=== PATIENT | female | born 1945 | race Caucasian/White ===

== ENCOUNTER 2018-01-20 11:02 | Inpatient (IN) | payer MEDICARE, MEDICAID ==
[~2018-01-20] VITALS: Ht 160 cm; Wt 50.8 kg
[~2018-01-20 11:02] MED LIST: ASPIRIN81 MG ORAL; BACLOFEN10 MG ORAL; BACTRIM-DS1 EA ORAL; BISACODYL5 MG ORAL; CHLORHEXIDINE473 ML MM; DELSYM30 MG/5 M1 PO; DOCUSATE SODIU250 MG ORAL; DUONEB 0.5-3(2.53 ML HHN; FLEET ENEMA133 ML RECTAL; GERI-TUSSI100 MG/5 M PO; HEPARIN SO5000 UNIT2 SUBQ; HIBICLENS118 ML TP; LEVOTHYROXINE50 MCG ORAL; LISINOPRIL10 MG ORAL; LISINOPRIL20 MG ORAL; LISINOPRIL5 MG ORAL; MAGNESIUM CITR296 M1 PO; MILK OF MA400 MG/51 ORAL; MOTRIN IB200 MG ORAL; MULTI VITAMIN1 EACH ORAL; NORCO 5-325 TA1 EACH ORAL; OMEPRAZOLE MAGN20 MG PO; RESTORIL15 MG ORAL; TRAVATAN Z5 ML OP
[2018-01-20] MEDS ORDERED: DIOVAN HCT 1601 EAC1 ORAL (11:15)
[2018-01-20] MEDS ORDERED: TEMAZEPAM22.5 MG PO (11:15)
[2018-01-20] MEDS ORDERED: CLONIDINE HCL0.1 MG PO (11:15)
[2018-01-20] MEDS ORDERED: IBUPROFEN100 M1 PO (11:15)
[2018-01-20] MEDS ORDERED: ATORVASTATIN CA10 MG ORAL (11:15)
[2018-01-20] MEDS ORDERED: BENGAY113 GM TP (11:15)
[2018-01-20] MEDS ORDERED: ALPHAGAN P5 M2 OP (11:15)
[2018-01-20] MEDS ORDERED: LEVOTHYROXINE175 MCG ORAL (11:15)
[2018-01-20] MEDS ORDERED: VITAMIN C250 MG ORAL (11:15)
[2018-01-20] MEDS ORDERED: CALCIUM CARBON650 M3 GT (11:15)
[2018-01-20] MEDS ORDERED: NORCO 5-325 TA1 EACH ORAL (11:15)
[2018-01-20] MEDS ORDERED: Sodium Chloride 500ML 500 ML IV ONE (11:33)
[2018-01-20] MEDS ORDERED: Isovue-300 100ml vial INJ PRN (11:45)
[2018-01-20] MEDS ORDERED: Morphine Sulfate 4mg/ml Inj (IV USE ONLY) IVP ONE (11:45)
[2018-01-20 12:02] LABS: BILIRUBIN, URINE NEGATIVE (NEGATIVE); COLOR,URINE PALE YELLOW; GLUCOSE, URINE (UA) NEGATIVE (NEGATIVE); KETONES,URINE NEGATIVE (NEGATIVE); LEUKOCYTE ESTERASE ,URINE 1+ (NEGATIVE); NITRITE,URINE NEGATIVE (NEGATIVE); PH,URINE 7 (4.5-8.0); PROTEIN,URINE NEGATIVE (NEGATIVE); UROBILINOGEN,URINE NORMAL MG/DL (0.0-1.0)
[2018-01-20 12:03] LABS: ANION GAP 11 mmol/L (5-15); BLOOD UREA NITROGEN 25 mg/dL (7-18); CALCIUM 9.9 MG/DL (8.5-10.1); CARBON DIOXIDE 25 MMOL/L (21-32); CHLORIDE 103 MMOL/L (98-107); CREATININE 1.3 MG/DL (0.55-1.30); POTASSIUM 4.7 MMOL/L (3.5-5.1); SODIUM 139 MMOL/L (136-145)
[2018-01-20 12:05] LABS: APPEARANCE,URINE CLEAR
[2018-01-20 12:06] LABS: EOSINOPHILS % (AUTO) 1.2 % (0.0-3.0); HEMATOCRIT 36.2 % (37.0-47.0); HEMOGLOBIN 11.2 G/DL (12.0-16.0); LYMPHOCYTES % (AUTO) 35.7 % (20.0-45.0); MEAN CORPUSCULAR VOLUME 88 FL (80-99); MONOCYTES % (AUTO) 6.8 % (1.0-10.0); NEUTROPHILS % (AUTO) 55.3 % (45.0-75.0); PLATELET COUNT 314 K/UL (150-450); RED CELL DISTRIBUTION WIDTH 12.7 % (11.6-14.8); WHITE BLOOD COUNT 6.7 K/UL (4.8-10.8)
[2018-01-20 12:08] LABS: ALANINE AMINOTRANSFERASE 22 U/L (12-78); ALBUMIN 3.7 G/DL (3.4-5.0); ALBUMIN/GLOBULIN RATIO 0.9 (1.0-2.7); ALKALINE PHOSPHATASE 88 U/L (46-116); ASPARTATE AMINO TRANSFERASE 20 U/L (15-37); BILIRUBIN,TOTAL 0.5 MG/DL (0.2-1.0)
[2018-01-20 12:39] VITALS: BP 115/60
[2018-01-20] MEDS ORDERED: LORazepam Inj 2mg/ml 1ml IV PRN (13:15)
[2018-01-20] MEDS ORDERED: Mylanta II UD 30ml ORAL PRN (13:15)
[2018-01-20] MEDS ORDERED: Miralax 17gm pkt ORAL PRN (13:15)
--- NOTE | 2018-01-20 13:33 | Emergency Room Report ---
History of Present Illness General Chief Complaint: Abdominal Pain Source: Patient, EMS (Raji Strickland MD) Present Illness HPI 72-year-old female presents ED complaining of abdominal pain 5 days. Coming from senior living facility. Patient states she was given medication to " help her go". States she did have bowel movements but is been having persistent pain since. Sharp, 9 out of 10, nonradiating. Notes nausea and vomiting. Denies fevers or chills. Denies chest pain. No other aggravating relieving factors. Denies any other associated symptoms (Raji Strickland MD) Allergies: Coded Allergies: NO KNOWN ALLERGIES (Unverified Allergy, Unknown, 04/30/15) Patient History Past Medical History: HTN, GERD, CVA/TIA Past Surgical History: none Pertinent Family History: none Social History: Denies: smoking, alcohol use, drug use Now: No Immunizations: UTD Reviewed Nursing Documentation: PMH: Agreed; PSxH: Agreed (Raji Strickland MD) Nursing Documentation-PMH Hx Cardiac Problems: Yes - high cholesterol Hx Hypertension: Yes Hx Diabetes: No Hx Cancer: No Hx Gastrointestinal Problems: Yes - gerd Hx Cerebrovascular Accident: Yes - 2002 L-sided Hx Paralysis: Yes - Left Side Hx Headaches: Yes (Raji Strickland MD) Review of Systems All Other Systems: negative except mentioned in HPI (Raji Strickland MD) Physical Exam Vital Signs Date Time Temp Pulse Resp B/P (MAP) Pulse Ox O2 Delivery O2 Flow Rate FiO2 01/20/18 11:02 98.5 84 18 118/70 97 Room Air 98.4 Sp02 EP Interpretation: reviewed, normal General Appearance: no apparent distress, alert, GCS 15, non-toxic Head: normocephalic, atraumatic Eyes: bilateral eye normal inspection, bilateral eye PERRL ENT: hearing grossly normal, normal pharynx, no angioedema, normal voice Neck: full range of motion, supple/symm/no masses Respiratory: chest non-tender, lungs clear, normal breath sounds, speaking full sentences Cardiovascular #1: regular rate, rhythm, no edema Cardiovascular #2: 2+ carotid (R), 2+ carotid (L), 2+ radial (R), 2+ radial (L) , 2+ dorsalis pedis (R), 2+ dorsalis pedis (L) Gastrointestinal: normal bowel sounds, no guarding, no rebound, tenderness Rectal: deferred Genitourinary: normal inspection, no CVA tenderness Musculoskeletal: back normal, gait/station normal, normal range of motion, non- tender Neurologic: alert, oriented x3, responsive, motor strength/tone normal, sensory intact, speech normal Psychiatric: judgement/insight normal, memory normal, mood/affect normal, no suicidal/homicidal ideation Reflexes: 3+ bicep (R), 3+ bicep (L), 3+ tricep (R), 3+ tricep (L), 3+ knee (R) , 3+ knee (L) Skin: normal color, no rash, warm/dry, well hydrated Lymphatic: no adenopathy (Raji Strickland MD) Medical Decision Making Diagnostic Impression: Primary Impression: Abdominal pain Additional Impression: Constipation Labs Test 01/20/18 11:20 White Blood Count 6.7 K/UL (4.8-10.8) Red Blood Count 4.10 M/UL (4.20-5.40) Hemoglobin 11.2 G/DL (12.0-16.0) Hematocrit 36.2 % (37.0-47.0) Mean Corpuscular Volume 88 FL (80-99) Mean Corpuscular Hemoglobin 27.4 PG (27.0-31.0) Mean Corpuscular Hemoglobin Concent 31.0 G/DL (32.0-36.0) Red Cell Distribution Width 12.7 % (11.6-14.8) Platelet Count 314 K/UL (150-450) Mean Platelet Volume 6.3 FL (6.5-10.1) Neutrophils (%) (Auto) 55.3 % (45.0-75.0) Lymphocytes (%) (Auto) 35.7 % (20.0-45.0) Monocytes (%) (Auto) 6.8 % (1.0-10.0) Eosinophils (%) (Auto) 1.2 % (0.0-3.0) Basophils (%) (Auto) 1.0 % (0.0-2.0) Urine Color Pale yellow Urine Appearance Clear Urine pH 7 (4.5-8.0) Urine Specific [place] 1.005 (1.005-1.035) Urine Protein Negative (NEGATIVE) Urine Glucose (UA) Negative (NEGATIVE) Urine Ketones Negative (NEGATIVE) Urine Blood Negative (NEGATIVE) Urine Nitrite Negative (NEGATIVE) Urine Bilirubin Negative (NEGATIVE) Urine Urobilinogen Normal MG/DL (0.0-1.0) Urine Leukocyte Esterase 1+ (NEGATIVE) Urine RBC 0 /HPF (0 - 2) Urine WBC 0-2 /HPF (0 - 2) Urine Squamous Epithelial Cells Occasional /LPF Urine Bacteria None /HPF (NONE) Sodium Level 139 MMOL/L (136-145) Potassium Level 4.7 MMOL/L (3.5-5.1) Chloride Level 103 MMOL/L (98-107) Carbon Dioxide Level 25 MMOL/L (21-32) Anion Gap 11 mmol/L (5-15) Blood Urea Nitrogen 25 mg/dL (7-18) Creatinine 1.3 MG/DL (0.55-1.30) Estimat Glomerular Filtration Rate mL/min (>60) Glucose Level 102 MG/DL (74-106) Calcium Level 9.9 MG/DL (8.5-10.1) Total Bilirubin 0.5 MG/DL (0.2-1.0) Aspartate Amino Transf (AST/SGOT) 20 U/L (15-37) Alanine Aminotransferase (ALT/SGPT) 22 U/L (12-78) Alkaline Phosphatase 88 U/L (46-116) Total Protein 8.0 G/DL (6.4-8.2) Albumin 3.7 G/DL (3.4-5.0) Globulin 4.3 g/dL Albumin/Globulin Ratio 0.9 (1.0-2.7) Lipase 258 U/L (73-393) (Raji Strickland MD) ER Course CT of abdomen and pelvis read by radiology showed No definite acute process. There is mild nonspecific fluid in the ascending colon and slight distention of the rectum by gas and stool. Surgically absent gallbladder. Dilated extra hepatic and central intrahepatic bile ducts, could be related to age and postcholecystectomy state but are rather striking. No definite downstream obstructive lesion demonstrated, but correlation with liver function tests is recommended with consideration for MRCP if clinically indicated Nonspecific mildly ectatic pancreatic duct Mildly thickened endometrium, may raise concern in a postmenopausal female. Consider further assessment with ultrasound. Nonobstructive left lower pole calyceal calculus. Bilateral multiple bladder calculi Gas bubbles within the bladder. Suspect on the basis of prior instrumentation, but if no history of such could indicate infection with gas-forming organism. Correlate with clinical history and findings Borderline cardiomegaly T12 and L5 vertebral body compression fracture deformities, age indeterminate. If clinically relevant, consider MRI for better characterization Incidental findings as noted, including bilateral basilar pulmonary dependent parenchymal atelectatic changes, fat-containing right inguinal hernia, splenic granulomatous calcifications Bilateral renal cysts. Bilateral subcentimeter low-attenuation renal lesions which are too small to characterize, most likely benign simple cysts (Caio Florez MD) Last Vital Signs Date Time Temp Pulse Resp B/P (MAP) Pulse Ox O2 Delivery O2 Flow Rate FiO2 01/20/18 12:39 98.5 77 18 115/60 97 Room Air 98.5 Status: improved (Raji Strickland MD) Status: unchanged (Caio Florez MD) Disposition: ADMITTED INPATIENT Condition: Serious Referrals: Olegario Dunaway DO (PCP) Raji Strickland MD Jan 20, 2018 13:33 Caio Florez MD Jan 20, 2018 14:50
--- NOTE | 2018-01-20 13:58 | GI Initial Consult Note ---
History of Present Illness General Date patient seen: Jan 20, 2018 Time patient seen: 13:47 Reason for Hospitalization: Abdominal Pain Referring physician: MAX YOUNG Reason for Consultation: ABDOMINAL PAIN Present Illness HPI 72-year-old female presents ED complaining of abdominal pain 5 days. [facility]. Patient states she was given medication to " help her go". States she did have bowel movements but is been having persistent pain since. Sharp, 9 out of 10, nonradiating. Notes nausea and vomiting. Denies fevers or chills. Denies chest pain. No other aggravating relieving factors. Denies any other associated symptoms GI consulted for abdominal pain. Per report possible severe constipation/fecal impaction. Patient was seen in ED, awake A&Ox4 NAD with no active s/sx of N/V. Hx of CVA with left side hemiparesis. Pt has c/o of severe abdominal pain, tender to palpation on all quadrants, soft, non distended. Per patient, last BM has been a few days. Is aware that narcotics causes constipation and states she avoids it for that reason. The patient currently noted to be on a bowel regime consisting of Miralax, senna, and colace. CTAP pending read, preliminary read from ED show colonic distention. Pt states she's had both endoscopy/colonoscopy performed this year with unremarkable results. Home Meds Active Scripts Lisinopril (LISINOPRIL*) 20 Mg Tablet, 20 MG ORAL DAILY, #1 TAB Prov:Thelma Hernandez [employer] 05/07/15 Trimethoprim/Sulfamethoxazole (Bactrim Ds Tablet) 1 Ea Tab, 1 EA ORAL TWICE A DAY, #2 TAB Prov:Thelma Hernandez [employer] 05/06/15 Reported Medications Ascorbic Acid* (VITAMIN C*) 250 Mg Tablet, 250 MG ORAL DAILY, #30 TAB 0 Refills 01/20/18 Valsartan/Hydrochlorothiazide 160-25MG (DIOVAN HCT 160-25 MG TABLET) 1 Each Tablet, 1 TAB ORAL DAILY, TAB 01/20/18 Temazepam (TEMAZEPAM) 22.5 Mg Capsule, 15 MG PO QHS, CAP 01/20/18 Hydrocodone Bit/Acetaminophen 5-325* (NORCO 5-325*) 1 Each Tablet, 1 TAB ORAL Q6H PRN for For Pain, #10 TAB 0 Refills 9/28/18 Levothyroxine Sodium (LEVOTHYROXINE SODIUM) 175 Mcg Tablet, 50 MCG ORAL DAILY, TAB Take in the morning on an empty stomach, at least 30 minutes before food. 01/20/18 Ibuprofen (IBUPROFEN) 100 Mg Tab.chew, 600 MG PO, TAB 01/20/18 Clonidine Hcl (CLONIDINE HCL) 0.1 Mg Tablet, 0.1 MG PO Q6HR, TAB 01/20/18 Calcium Carbonate (Calcium Carbonate) 260 Mg Tablet, 650 MG GT, TAB 01/20/18 Menthol (BENGAY) 113 Gm Gel..gram., 113 GM TP, GM 01/20/18 Brimonidine Tartrate (ALPHAGAN P) 5 Ml Drops, 5 ML OP, ML 01/20/18 Atorvastatin Calcium* (LIPITOR*) 10 Mg Tablet, 10 MG ORAL BEDTIME, TAB 01/20/18 Aspirin* (ASPIRIN*) 81 Mg Tab.chew, 81 MG ORAL DAILY, TAB 04/30/15 Discontinued Reported Medications Travoprost (TRAVATAN Z) 5 Ml Drops, 5 ML OP, ML 04/30/15 Temazepam* (RESTORIL*) 15 Mg Capsule, 15 MG ORAL BEDTIME PRN for Insomnia, CAP 04/30/15 Omeprazole Magnesium (OMEPRAZOLE MAGNESIUM) 20 Mg Capsule.dr, 20 MG PO DAILY, CAP 04/30/15 Hydrocodone Bit/Acetaminophen 5-325* (NORCO 5-325*) 1 Each Tablet, 1 TAB ORAL Q6H PRN for For Pain, #10 TAB 0 Refills 04/30/15 Multivitamin (MULTI VITAMIN DAILY) 1 Each Tablet, 1 TAB ORAL DAILY, #30 TAB 0 Refills 04/30/15 Ibuprofen* (MOTRIN IB*) 200 Mg Tablet, 600 MG ORAL Q8HR PRN for Pain Scale (3-5) , #30 TAB 0 Refills 04/30/15 Magnesium Hydroxide* (MILK OF MAGNESIA*) 400 Mg/5 Ml Oral.susp, 30 ML ORAL DAILY , ML 04/30/15 Magnesium Citrate (MAGNESIUM CITRATE) 296 Ml Solution, 296 ML PO DAILY PRN for Constipation 04/30/15 Levothyroxine Sodium* (LEVOTHYROXINE SODIUM*) 50 Mcg Tablet, 50 MCG ORAL DAILY, TAB Take in the morning on an empty stomach, at least 30 minutes before food. 04/30/15 Heparin Sod (Porcine) (HEPARIN SODIUM*) 5 000/1 Ml Vial, 5000 UNITS SUBQ DAILY, VIAL 04/30/15 Guaifenesin (WON-TUSSIN) 100 Mg/5 Ml Liquid, 100 MG PO Q6HR, ML 04/30/15 Na Phos,M-B/Na Phos,Di-Ba* (FLEET ENEMA*) 133 Ml Enema, 118 ML RECTAL DAILY, ML 0 Refills 04/30/15 Bisacodyl* (DULCOLAX*) 5 Mg Tablet.dr, 10 MG ORAL DAILY, #10 TAB 0 Refills 04/30/15 Ipratropium/Albuterol Sulfate (DuoNeb 0.5-3(2.5)mg/3ml) 3 Ml Ampul.neb, 3 ML HHN Q4HR, EA 04/30/15 Docusate Sodium* (DOCUSATE SODIUM*) 250 Mg Capsule, 250 MG ORAL TWICE A DAY, CAP 04/30/15 Dextromethorphan Polistirex (DELSYM) 30 Mg/5 Ml Shruti.er.12h, 30 MG PO Q6HR 04/30/15 Chlorhexidine Gluconate (CHLORHEXIDINE GLUCONATE) 473 Ml Mouthwash, 15 ML MM, ML 04/30/15 Chlorhexidine Gluconate* (HIBICLENS*) 118 Ml Liquid, 118 ML TP, ML 04/30/15 Baclofen* (BACLOFEN*) 10 Mg Tablet, 10 MG ORAL THREE TIMES A DAY, TAB 04/30/15 Med list reviewed/reconciled: Yes Allergies: Coded Allergies: NO KNOWN ALLERGIES (Unverified Allergy, Unknown, 04/30/15) Patient History PMH Narrative Past Medical History: HTN, GERD, CVA/TIA Past Surgical History: none Pertinent Family History: none Social History: Denies: smoking, alcohol use, drug use Now: No Immunizations: UTD Reviewed Nursing Documentation: PMH: Agreed; PSxH: Agreed Nursing Documentation-PMH Hx Cardiac Problems: Yes - high cholesterol Hx Hypertension: Yes Hx Diabetes: No Hx Cancer: No Hx Gastrointestinal Problems: Yes - gerd Hx Cerebrovascular Accident: Yes - 2002 L-sided Hx Paralysis: Yes - Left Side Hx Headaches: Yes Pertinent Family History: none Social History: Denies: smoking, alcohol use, drug use, other Review of Systems All Other Systems: negative except mentioned in HPI Physical Exam Vital Signs Date Time Temp Pulse Resp B/P (MAP) Pulse Ox O2 Delivery O2 Flow Rate FiO2 01/20/18 11:02 98.5 84 18 118/70 97 Room Air 98.4 Sp02 EP Interpretation: reviewed, normal Labs Laboratory Tests Test 01/20/18 11:20 White Blood Count 6.7 K/UL (4.8-10.8) Red Blood Count 4.10 M/UL (4.20-5.40) L Hemoglobin 11.2 G/DL (12.0-16.0) L Hematocrit 36.2 % (37.0-47.0) L Mean Corpuscular Volume 88 FL (80-99) Mean Corpuscular Hemoglobin 27.4 PG (27.0-31.0) Mean Corpuscular Hemoglobin Concent 31.0 G/DL (32.0-36.0) L Red Cell Distribution Width 12.7 % (11.6-14.8) Platelet Count 314 K/UL (150-450) Mean Platelet Volume 6.3 FL (6.5-10.1) L Neutrophils (%) (Auto) 55.3 % (45.0-75.0) Lymphocytes (%) (Auto) 35.7 % (20.0-45.0) Monocytes (%) (Auto) 6.8 % (1.0-10.0) Eosinophils (%) (Auto) 1.2 % (0.0-3.0) Basophils (%) (Auto) 1.0 % (0.0-2.0) Urine Color Pale yellow Urine Appearance Clear Urine pH 7 (4.5-8.0) Urine Specific [place] 1.005 (1.005-1.035) Urine Protein Negative (NEGATIVE) Urine Glucose (UA) Negative (NEGATIVE) Urine Ketones Negative (NEGATIVE) Urine Blood Negative (NEGATIVE) Urine Nitrite Negative (NEGATIVE) Urine Bilirubin Negative (NEGATIVE) Urine Urobilinogen Normal MG/DL (0.0-1.0) Urine Leukocyte Esterase 1+ (NEGATIVE) H Urine RBC 0 /HPF (0 - 2) Urine WBC 0-2 /HPF (0 - 2) Urine Squamous Epithelial Cells Occasional /LPF Urine Bacteria None /HPF (NONE) Sodium Level 139 MMOL/L (136-145) Potassium Level 4.7 MMOL/L (3.5-5.1) Chloride Level 103 MMOL/L (98-107) Carbon Dioxide Level 25 MMOL/L (21-32) Anion Gap 11 mmol/L (5-15) Blood Urea Nitrogen 25 mg/dL (7-18) H Creatinine 1.3 MG/DL (0.55-1.30) Estimat Glomerular Filtration Rate mL/min (>60) Glucose Level 102 MG/DL (74-106) Calcium Level 9.9 MG/DL (8.5-10.1) Total Bilirubin 0.5 MG/DL (0.2-1.0) Aspartate Amino Transf (AST/SGOT) 20 U/L (15-37) Alanine Aminotransferase (ALT/SGPT) 22 U/L (12-78) Alkaline Phosphatase 88 U/L (46-116) Total Protein 8.0 G/DL (6.4-8.2) Albumin 3.7 G/DL (3.4-5.0) Globulin 4.3 g/dL Albumin/Globulin Ratio 0.9 (1.0-2.7) L Lipase 258 U/L (73-393) General Appearance: well appearing, no apparent distress, alert, thin Head: normocephalic EENT: PERRL/EOMI, normal ENT inspection Neck: supple Respiratory: normal breath sounds, no respiratory distress Cardiovascular: normal rate Gastrointestinal: soft, non-distended, guarding, tenderness Rectal: deferred Genitourinary: no CVA tenderness Musculoskeletal: normal inspection, other - left sided weakness s/p CVA Neurologic: normal inspection, alert, oriented x3, responsive Psychiatric: normal inspection, judgement/insight normal, memory normal Skin: normal inspection, normal color, no rash, warm/dry, palpation normal, well hydrated Lymphatic: normal inspection, no adenopathy Current Medications Current Medications Medications (Trade) Dose Ordered Sig/Marilu Route PRN Reason Start Time Stop Time Status Last Admin Dose Admin Acetaminophen (Tylenol) 650 mg Q4H PRN ORAL fever 01/20/18 13:15 02/19/18 13:14 Al Hydroxide/Mg Hydroxide (Mylanta II) 30 ml Q6H PRN ORAL dyspepsia 01/20/18 13:15 02/19/18 13:14 Aspirin (ASA) 81 mg DAILY ORAL 01/21/18 09:00 02/20/18 08:59 Clonidine HCl (Catapres Tab) 0.1 mg Q6H PRN ORAL sbp more than 160 01/20/18 13:15 02/19/18 13:14 Dextrose (Dextrose 50%) 25 ml Q30M PRN IV Hypoglycemia 01/20/18 13:30 02/19/18 13:18 Dextrose (Dextrose 50%) 50 ml Q30M PRN IV hypoglycemia 01/20/18 13:30 02/19/18 13:29 Docusate Sodium (Colace) 100 mg THREE TIMES A DAY ORAL 01/20/18 18:00 02/19/18 17:59 Iopamidol (Isovue-300 100ml) 100 ml NOW PRN INJ Radiology Procedure 01/20/18 11:45 Lactulose (Cephulac) 30 gm THREE TIMES A DAY ORAL 01/20/18 18:00 02/19/18 17:59 Levothyroxine Sodium (Synthroid) 50 mcg DAILY@0630 ORAL 01/21/18 06:30 02/20/18 06:29 UNV Lisinopril (Prinivil) 20 mg DAILY ORAL 01/21/18 09:00 02/20/18 08:59 Lorazepam (Ativan 2mg/ml 1ml) 0.5 mg Q4H PRN IV For Anxiety 01/20/18 13:15 01/27/18 13:14 Morphine Sulfate (Morphine Sulfate) 1 mg Q4H PRN IVP For Pain 01/20/18 13:15 01/27/18 13:14 Ondansetron HCl (Zofran) 4 mg Q6H PRN IVP Nausea & Vomiting 01/20/18 13:15 02/19/18 13:14 Polyethylene Glycol (Miralax) 17 gm BEDTIME ORAL 01/20/18 21:00 02/19/18 20:59 Polyethylene Glycol (Miralax) 17 gm HSPRN PRN ORAL Constipation 01/20/18 13:15 02/19/18 13:14 Sennosides (Senokot) 8.6 tab DAILY ORAL 01/21/18 09:00 02/20/18 08:59 Zolpidem Tartrate (Ambien) 5 mg HSPRN PRN ORAL Insomnia 01/20/18 13:15 01/27/18 13:14 GI: Plan Problems: (1) Fecal impaction (2) Constipation (3) Anemia (4) Family history of CVA (5) Diabetes Plan CTAP taken, results pending maintain NPO + IVFs at this time will order fleets enema prn, digital disimpaction if medical mgmt fails cont bowel regime anemia work up OB stool r/o GI bleed monitor H&H, prn transfusions ppi fu labs Discussed with Dr. Albert. Thank you for this patient referral, we will follow. The patient was seen and examined at bedside and all new and available data was reviewed in the patients chart. I agree with the above findings, impression and plan. (Patient seen earlier today. Signature stamp does not reflect patient encounter time.). - MD Pamela Guerrero AnhJustus MICHAELS Jan 20, 2018 13:58
[2018-01-20] MEDS ORDERED: Fleet's Mineral Oil Enema RECTAL PRN (14:00)
[2018-01-20 14:10] VITALS: BP 107/58
--- NOTE | 2018-01-20 14:26 | Diagnostic Imaging Report ---
Clinical Indication: Abdominal pain, nausea, urinary tract infection symptoms Technique: No oral contrast utilized, per emergency room physician request IV administration nonionic contrast. Venous phase spiral acquisition obtained through the abdomen and pelvis. Multiplanar reconstructions were generated. Total dose length product 941.15 mGycm. CTDIvol(s) 19.07 mGy. Dose reduction achieved using automated exposure control Comparison: none Findings: The appendix is normal. Some fluid is seen in the ascending colon. The proximal rectum is mildly distended by gas and stool. No evidence of diverticulosis or diverticulitis. No small bowel distention. No free or loculated intraperitoneal gas or fluid is evident. The distal esophagus, stomach, duodenum are unremarkable. The gallbladder is surgically absent. Central intrahepatic bile ducts and the common bile duct are dilated, extra hepatic ducts measuring up to 12 cm in diameter. The downstream common bile duct is not well visualized, but no definite downstream obstructive lesion is demonstrated. The liver is unremarkable. The pancreatic duct is mildly ectatic. The pancreas is otherwise unremarkable. The spleen contains a few small calcifications. The adrenals are unremarkable. The left kidney demonstrates a nonobstructive lower pole calyceal calculus which measures 4 mm in diameter. Both kidneys demonstrate multiple cysts as well as subcentimeter low-attenuation lesions which are too small to characterize. No retroperitoneal or mesenteric mass or adenopathy. No pelvic mass or adenopathy. There is thickening of the endometrium, which is thickened to up to 8 mm. No uterine or adnexal mass demonstrated. The urinary bladder contains a few gas bubbles. There are also some calcifications dependently in the bladder bilaterally, measuring up to 3 mm in diameter. There is a small fat-containing right inguinal hernia. Dependent atelectatic changes are seen at the lung bases bilaterally. The heart is borderline enlarged. There is a wedge compression fracture deformity of the T12 vertebral body. There is is a mild vertebra plana type compression fracture deformity of the L5 vertebral body Impression: No definite acute process. There is mild nonspecific fluid in the ascending colon and slight distention of the rectum by gas and stool. Surgically absent gallbladder. Dilated extra hepatic and central intrahepatic bile ducts, could be related to age and postcholecystectomy state but are rather striking. No definite downstream obstructive lesion demonstrated, but correlation with liver function tests is recommended with consideration for MRCP if clinically indicated Nonspecific mildly ectatic pancreatic duct Mildly thickened endometrium, may raise concern in a postmenopausal female. Consider further assessment with ultrasound. Nonobstructive left lower pole calyceal calculus. Bilateral multiple bladder calculi Gas bubbles within the bladder. Suspect on the basis of prior instrumentation, but if no history of such could indicate infection with gas-forming organism. Correlate with clinical history and findings Borderline cardiomegaly T12 and L5 vertebral body compression fracture deformities, age indeterminate. If clinically relevant, consider MRI for better characterization Incidental findings as noted, including bilateral basilar pulmonary dependent parenchymal atelectatic changes, fat-containing right inguinal hernia, splenic granulomatous calcifications Bilateral renal cysts. Bilateral subcentimeter low-attenuation renal lesions which are too small to characterize, most likely benign simple cysts The CT scanner at [facility] is accredited by the [employer] and the scans are performed using protocols designed to limit radiation exposure to as low as reasonably achievable to attain images of sufficient resolution adequate for diagnostic evaluation.
--- NOTE | 2018-01-20 14:35 | Consultation ---
History of Present Illness General Chief Complaint: Abdominal Pain Referring physician: MAX YOUNG Reason for Consultation: ABDOMINAL PAIN Present Illness HPI 72-year-old female with hx of DM, CVA, decubiti ulcers, senior living resident presented to ED complaining of abdominal pain 5 days. Patient states she was given medication to "help her go". States she did have bowel movements but is been having persistent pain since. S Denies fevers or chills. Denies chest pain. No other aggravating relieving factors. Denies any other associated symptoms. she is admitted to medical floor for further work up. Allergies: Coded Allergies: NO KNOWN ALLERGIES (Unverified Allergy, Unknown, 04/30/15) Medication History Scheduled Ascorbic Acid* (Vitamin C*), 250 MG ORAL DAILY, (Reported) Aspirin* (Aspirin*), 81 MG ORAL DAILY, (Reported) Atorvastatin Calcium* (Lipitor*), 10 MG ORAL BEDTIME, (Reported) Clonidine Hcl (Clonidine Hcl), 0.1 MG PO Q6HR, (Reported) Docusate Sodium* (Docusate Sodium*), 100 MG ORAL THREE TIMES A DAY, (Reported) Lactulose (Lactulose*), 30 ML ORAL TID, (Reported) Levothyroxine Sodium (Levothyroxine Sodium), 50 MCG ORAL DAILY, (Reported) Levothyroxine Sodium* (Levothyroxine Sodium*), 50 MCG ORAL DAILY 0630, (Reported ) Lisinopril (Lisinopril*), 20 MG ORAL DAILY, (Reported) Mupirocin* (Mupirocin*), 1 APPLIC TOPIC BID, (Reported) Sennosides* (Sennosides*), 8.6 MG ORAL DAILY, (Reported) Temazepam (Temazepam), 15 MG PO QHS, (Reported) Valsartan/Hydrochlorothiazide 160-25MG (Diovan Hct 160-25 Mg Tablet), 1 TAB ORAL DAILY, (Reported) Scheduled PRN Hydrocodone Bit/Acetaminophen 5-325* ([place] 5-325*), 1 TAB ORAL Q6H PRN for For Pain, (Reported) Polyethylene Glycol 3350* (Polyethylene Glycol 3350*), 17 GM ORAL BEDTIME PRN for Constipation, (Reported) Miscellaneous Medications Brimonidine Tartrate (Alphagan P), 5 ML OP, (Reported) Calcium Carbonate (Calcium Carbonate), 650 MG GT, (Reported) Ibuprofen (Ibuprofen), 600 MG PO, (Reported) Menthol (Bengay), 113 GM TP, (Reported) Discontinued Medications Baclofen* (Baclofen*), 10 MG ORAL THREE TIMES A DAY, (Reported) Discontinued Reason: Pt stopped taking med Bisacodyl* (Dulcolax*), 10 MG ORAL DAILY, (Reported) Discontinued Reason: Pt stopped taking med Chlorhexidine Gluconate (Chlorhexidine Gluconate), 15 ML MM, (Reported) Discontinued Reason: MD discontinued med Chlorhexidine Gluconate* (Hibiclens*), 118 ML TP, (Reported) Discontinued Reason: MD discontinued med Dextromethorphan Polistirex (Delsym), 30 MG PO Q6HR, (Reported) Discontinued Reason: Pt stopped taking med Docusate Sodium* (Docusate Sodium*), 250 MG ORAL TWICE A DAY, (Reported) Discontinued Reason: Pt stopped taking med Guaifenesin (Bela-Tussin), 100 MG PO Q6HR, (Reported) Discontinued Reason: Pt stopped taking med Heparin Sod (Porcine) (Heparin Sodium*), 5,000 UNITS SUBQ DAILY, (Reported) Discontinued Reason: Pt stopped taking med Hydrocodone Bit/Acetaminophen 5-325* ([place] 5-325*), 1 TAB ORAL Q6H PRN for For Pain, (Reported) Discontinued Reason: Pt stopped taking med Ibuprofen* (Motrin Ib*), 600 MG ORAL Q8HR PRN for Pain Scale (3-5), (Reported) Discontinued Reason: Pt stopped taking med Ipratropium/Albuterol Sulfate (DuoNeb 0.5-3(2.5)mg/3ml), 3 ML HHN Q4HR, ( Reported) Discontinued Reason: Pt stopped taking med Levothyroxine Sodium* (Levothyroxine Sodium*), 50 MCG ORAL DAILY, (Reported) Discontinued Reason: Pt stopped taking med Lisinopril (Lisinopril*), 20 MG ORAL DAILY Discontinued Reason: MD discontinued med Magnesium Citrate (Magnesium Citrate), 296 ML PO DAILY PRN for Constipation, ( Reported) Discontinued Reason: Pt stopped taking med Magnesium Hydroxide* (Milk Of Magnesia*), 30 ML ORAL DAILY, (Reported) Discontinued Reason: Pt stopped taking med Multivitamin (Multi Vitamin Daily), 1 TAB ORAL DAILY, (Reported) Discontinued Reason: Pt stopped taking med Na Phos,M-B/Na Phos,Di-Ba* (Fleet Enema*), 118 ML RECTAL DAILY, (Reported) Discontinued Reason: Pt stopped taking med Omeprazole Magnesium (Omeprazole Magnesium), 20 MG PO DAILY, (Reported) Discontinued Reason: Pt stopped taking med Temazepam* (Restoril*), 15 MG ORAL BEDTIME PRN for Insomnia, (Reported) Discontinued Reason: Pt stopped taking med Travoprost (Travatan Z), 5 ML OP, (Reported) Discontinued Reason: Pt stopped taking med Trimethoprim/Sulfamethoxazole (Bactrim Ds Tablet), 1 EA ORAL TWICE A DAY Discontinued Reason: MD discontinued med Patient History Healthcare decision maker Resuscitation status Advanced Directive on File Past Medical/Surgical History Past Medical/Surgical History: (1) Sacral decubitus ulcer, stage III (2) Osteoarthritis of left knee (3) Cerebrovascular accident with involvement of left side of body (4) Vomiting (5) Diabetes Review of Systems All Other Systems: negative except mentioned in HPI Physical Exam General Appearance: WD/WN Lines, tubes and drains: peripheral HEENT: normocephalic, anicteric Neck: non-tender, normal alignment Respiratory/Chest: chest wall non-tender, lungs clear, normal breath sounds Breasts: no masses Cardiovascular/Chest: normal rate Abdomen: normal bowel sounds, soft Genitourinary/Rectal: normal genital exam Last 24 Hour Vital Signs Date Time Temp Pulse Resp B/P (MAP) Pulse Ox O2 Delivery O2 Flow Rate FiO2 01/20/18 14:10 98.5 70 16 107/58 97 Room Air 98.5 01/20/18 12:39 98.5 77 18 115/60 97 Room Air 98.5 01/20/18 12:38 98.5 01/20/18 11:39 98.5 01/20/18 11:02 98.5 84 18 118/70 97 Room Air 98.4 Laboratory Tests Test 01/20/18 11:20 White Blood Count 6.7 K/UL (4.8-10.8) Red Blood Count 4.10 M/UL (4.20-5.40) L Hemoglobin 11.2 G/DL (12.0-16.0) L Hematocrit 36.2 % (37.0-47.0) L Mean Corpuscular Volume 88 FL (80-99) Mean Corpuscular Hemoglobin 27.4 PG (27.0-31.0) Mean Corpuscular Hemoglobin Concent 31.0 G/DL (32.0-36.0) L Red Cell Distribution Width 12.7 % (11.6-14.8) Platelet Count 314 K/UL (150-450) Mean Platelet Volume 6.3 FL (6.5-10.1) L Neutrophils (%) (Auto) 55.3 % (45.0-75.0) Lymphocytes (%) (Auto) 35.7 % (20.0-45.0) Monocytes (%) (Auto) 6.8 % (1.0-10.0) Eosinophils (%) (Auto) 1.2 % (0.0-3.0) Basophils (%) (Auto) 1.0 % (0.0-2.0) Urine Color Pale yellow Urine Appearance Clear Urine pH 7 (4.5-8.0) Urine Specific [place] 1.005 (1.005-1.035) Urine Protein Negative (NEGATIVE) Urine Glucose (UA) Negative (NEGATIVE) Urine Ketones Negative (NEGATIVE) Urine Blood Negative (NEGATIVE) Urine Nitrite Negative (NEGATIVE) Urine Bilirubin Negative (NEGATIVE) Urine Urobilinogen Normal MG/DL (0.0-1.0) Urine Leukocyte Esterase 1+ (NEGATIVE) H Urine RBC 0 /HPF (0 - 2) Urine WBC 0-2 /HPF (0 - 2) Urine Squamous Epithelial Cells Occasional /LPF Urine Bacteria None /HPF (NONE) Sodium Level 139 MMOL/L (136-145) Potassium Level 4.7 MMOL/L (3.5-5.1) Chloride Level 103 MMOL/L (98-107) Carbon Dioxide Level 25 MMOL/L (21-32) Anion Gap 11 mmol/L (5-15) Blood Urea Nitrogen 25 mg/dL (7-18) H Creatinine 1.3 MG/DL (0.55-1.30) Estimat Glomerular Filtration Rate mL/min (>60) Glucose Level 102 MG/DL (74-106) Calcium Level 9.9 MG/DL (8.5-10.1) Total Bilirubin 0.5 MG/DL (0.2-1.0) Aspartate Amino Transf (AST/SGOT) 20 U/L (15-37) Alanine Aminotransferase (ALT/SGPT) 22 U/L (12-78) Alkaline Phosphatase 88 U/L (46-116) Total Protein 8.0 G/DL (6.4-8.2) Albumin 3.7 G/DL (3.4-5.0) Globulin 4.3 g/dL Albumin/Globulin Ratio 0.9 (1.0-2.7) L Lipase 258 U/L (73-393) Height (Feet): 5 Height (Inches): 3.00 Weight (Pounds): 112 Medications Current Medications Medications (Trade) Dose Ordered Sig/Marilu Route PRN Reason Start Time Stop Time Status Last Admin Dose Admin Acetaminophen (Tylenol) 650 mg Q4H PRN ORAL fever 01/20/18 13:15 02/19/18 13:14 Al Hydroxide/Mg Hydroxide (Mylanta II) 30 ml Q6H PRN ORAL dyspepsia 01/20/18 13:15 02/19/18 13:14 Aspirin (ASA) 81 mg DAILY ORAL 01/21/18 09:00 02/20/18 08:59 Clonidine HCl (Catapres Tab) 0.1 mg Q6H PRN ORAL sbp more than 160 01/20/18 13:15 02/19/18 13:14 Dextrose (Dextrose 50%) 25 ml Q30M PRN IV Hypoglycemia 01/20/18 13:30 02/19/18 13:18 Dextrose (Dextrose 50%) 50 ml Q30M PRN IV hypoglycemia 01/20/18 13:30 02/19/18 13:29 Docusate Sodium (Colace) 100 mg TID ORAL 01/20/18 18:00 02/19/18 17:59 Iopamidol (Isovue-300 100ml) 100 ml NOW PRN INJ Radiology Procedure 01/20/18 11:45 Lactulose (Cephulac) 30 gm THREE TIMES A DAY ORAL 01/20/18 18:00 02/19/18 17:59 Levothyroxine Sodium (Synthroid) 50 mcg DAILY@0630 ORAL 01/21/18 06:30 02/20/18 06:29 UNV Lisinopril (Prinivil) 20 mg DAILY ORAL 01/21/18 09:00 02/20/18 08:59 Lorazepam (Ativan 2mg/ml 1ml) 0.5 mg Q4H PRN IV For Anxiety 01/20/18 13:15 01/27/18 13:14 01/20/18 13:49 Mineral Oil (Fleet's Mineral Oil Enema) 133 ml Q4H PRN RECTAL CONSTIPATION 01/20/18 14:02 02/19/18 13:59 Morphine Sulfate (Morphine Sulfate) 1 mg Q4H PRN IVP For Pain 01/20/18 13:15 01/27/18 13:14 Ondansetron HCl (Zofran) 4 mg Q6H PRN IVP Nausea & Vomiting 01/20/18 13:15 02/19/18 13:14 Polyethylene Glycol (Miralax) 17 gm BEDTIME ORAL 01/20/18 21:00 02/19/18 20:59 Polyethylene Glycol (Miralax) 17 gm HSPRN PRN ORAL Constipation 01/20/18 13:15 02/19/18 13:14 Sennosides (Senokot) 8.6 tab DAILY ORAL 01/21/18 09:00 02/20/18 08:59 Sodium Chloride 1,000 ml @ 999 mls/hr Q1H1M ONCE IV 01/20/18 14:30 01/20/18 15:30 01/20/18 14:27 Zolpidem Tartrate (Ambien) 5 mg HSPRN PRN ORAL Insomnia 01/20/18 13:15 01/27/18 13:14 Assessment/Plan Problem List: (1) Fecal impaction ICD Codes: K56.41 - Fecal impaction SNOMED: 49311826 (2) Constipation ICD Codes: K59.00 - Constipation, unspecified SNOMED: 76551088 (3) Abdominal pain ICD Codes: R10.9 - Unspecified abdominal pain SNOMED: 36824768 (4) Cerebrovascular accident with involvement of left side of body ICD Codes: I63.9 - Cerebral infarction, unspecified SNOMED: 698725202 (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
[2018-01-20] MEDS: Fleet's Mineral Oil Enema RECTAL PRN (15:12)
[2018-01-20 15:13] VITALS: BP 108/62
--- NOTE | 2018-01-20 16:45 | History and Physical Report ---
DATE OF ADMISSION: 01/20/2018 APPROXIMATE TIME: 1 p.m. CONSULTANTS: 1. Luiz Albert M.D. 2. Amira Lawler M.D. CHIEF COMPLAINT: Abdominal pain and nausea. BRIEF HISTORY: This is a 72-year-old female from [facility] who presents to [facility] this morning with history of abdominal pain increasing for two days. The patient diagnosed with abdominal pain and stool impaction and being admitted to medical floor. Currently, slightly anxious due to general stomach pain and no complaint of vomiting or diarrhea. Last stool about two days ago. PAST MEDICAL HISTORY: CVA, left-sided weakness, diabetes, osteoarthritis. PAST SURGICAL HISTORY: None. MEDICATIONS: Include aspirin, Prinivil, Senokot, Synthroid, Cephulac, MiraLAX, Colace, Catapres, morphine, Zofran, Ambien, Ativan, and Mylanta. ALLERGIES: Denies. SOCIAL HISTORY: No smoking. No alcohol. No intravenous drug abuse. FAMILY HISTORY: Noncontributory. PHYSICAL EXAMINATION: GENERAL: Slightly anxious in bed, oriented x3, in no acute distress. VITAL SIGNS: Temperature 98 degrees, pulse 77, respiratory rate 18, and blood pressure 115/60. CARDIOVASCULAR: No murmur. LUNGS: Distant and clear. ABDOMEN: Bowel sounds positive. Distant. Soft. No guarding. No rigidity. No rebound. EXTREMITIES: No cyanosis or edema. NEUROLOGIC: The patient moves all extremities, but left-sided weakness more so than the right. LABORATORY DATA: Labs at this time show hemoglobin 11.2, otherwise CBC is normal. BMP shows BUN 25, otherwise BMP is normal. Urinalysis shows 1+ leukocyte esterase. ASSESSMENT: Stool impaction, UTI, CVA, left-sided weakness, anemia, diabetes, and osteoarthritis. PLAN: Pain control. IV fluids. Laxative as needed. Antibiotics as needed. Blood sugar and pain control. Dietary followup. OT/PT. CBC and BMP in the morning. Olegario Dunaway D.O. DR: CESAR JOB#: [id number] CC:
[2018-01-20] MEDS: Docusate 100mg cap ORAL SCH (18:00)
[2018-01-20] MEDS ORDERED: Docusate 100mg cap ORAL SCH (18:00)
[2018-01-20] MEDS: Lactulose 20gm/30ml UDC ORAL SCH (18:00)
[2018-01-20 20:00] VITALS: BP 105/60
[2018-01-20] MEDS: Zolpidem 5mg tab ORAL PRN (20:07)
[2018-01-20] MEDS: Miralax 17gm pkt ORAL SCH (20:07)
[2018-01-21] VITALS: BP 96/60
[2018-01-21 04:00] VITALS: BP 107/61
[2018-01-21 08:00] VITALS: BP 108/63
--- NOTE | 2018-01-21 08:13 | General Progress Note ---
Assessment/Plan Problem List: (1) Abdominal pain ICD Codes: R10.9 - Unspecified abdominal pain SNOMED: 08549199 (2) Constipation ICD Codes: K59.00 - Constipation, unspecified SNOMED: 14162970 (3) Vomiting ICD Codes: R11.10 - Vomiting, unspecified SNOMED: 460126238 (4) Fecal impaction ICD Codes: K56.41 - Fecal impaction SNOMED: 47403721 (5) Diabetes ICD Codes: E11.9 - Type 2 diabetes mellitus without complications SNOMED: 07287049 (6) Anemia ICD Codes: D64.9 - Anemia, unspecified SNOMED: 126329801 (7) Cerebrovascular accident with involvement of left side of body ICD Codes: I63.9 - Cerebral infarction, unspecified SNOMED: 568686750 Assessment/Plan anemia work up bowel regimen fu labs Subjective ROS Limited/Unobtainable: Yes Allergies: Coded Allergies: NO KNOWN ALLERGIES (Unverified Allergy, Unknown, 04/30/15) Subjective abd pain is better Objective Last 24 Hour Vital Signs Date Time Temp Pulse Resp B/P (MAP) Pulse Ox O2 Delivery O2 Flow Rate FiO2 01/21/18 04:00 97.2 62 20 107/61 (76) 97 97.2 01/21/18 00:00 97.1 56 19 96/60 (72) 98 97.1 01/20/18 21:00 Room Air 01/20/18 20:00 98.0 64 19 105/60 (75) 98 98.0 01/20/18 17:40 Room Air 01/20/18 16:05 98.5 80 16 108/62 98 Room Air 98.5 01/20/18 15:13 98.5 80 16 108/62 98 Room Air 98.5 01/20/18 14:10 98.5 70 16 107/58 97 Room Air 98.5 01/20/18 12:39 98.5 77 18 115/60 97 Room Air 98.5 01/20/18 12:38 98.5 01/20/18 11:39 98.5 01/20/18 11:02 98.5 84 18 118/70 97 Room Air 98.4 Intake and Output 01/20/18 01/21/18 19:00 07:00 Intake Total 120 ml 240 ml Balance 120 ml 240 ml Intake Oral 120 ml 240 ml # Voids 2 2 # Bowel Movements 2 Laboratory Tests 01/20/18 11:20: White Blood Count 6.7, Red Blood Count 4.10L, Hemoglobin 11.2L, Hematocrit 36.2L , Mean Corpuscular Volume 88, Mean Corpuscular Hemoglobin 27.4, Mean Corpuscular Hemoglobin Concent 31.0L, Red Cell Distribution Width 12.7, Platelet Count 314, Mean Platelet Volume 6.3L, Neutrophils (%) (Auto) 55.3, Lymphocytes (%) (Auto) 35.7, Monocytes (%) (Auto) 6.8, Eosinophils (%) (Auto) 1.2, Basophils (%) (Auto) 1.0, Urine Color Pale yellow, Urine Appearance Clear, Urine pH 7, Urine Specific [place] 1.005, Urine Protein Negative, Urine Glucose (UA) Negative, Urine Ketones Negative, Urine Blood Negative, Urine Nitrite Negative, Urine Bilirubin Negative, Urine Urobilinogen Normal, Urine Leukocyte Esterase 1+H, Urine RBC 0, Urine WBC 0-2, Urine Squamous Epithelial Cells Occasional, Urine Bacteria None, Sodium Level 139, Potassium Level 4.7, Chloride Level 103, Carbon Dioxide Level 25, Anion Gap 11, Blood Urea Nitrogen 25H, Creatinine 1.3, Estimat Glomerular Filtration Rate , Glucose Level 102, Calcium Level 9.9, Total Bilirubin 0.5, Aspartate Amino Transf (AST/SGOT) 20, Alanine Aminotransferase (ALT/SGPT) 22, Alkaline Phosphatase 88, Total Protein 8.0, Albumin 3.7, Globulin 4.3, Albumin/Globulin Ratio 0.9L, Lipase 258 01/21/18 06:50: White Blood Count [Pending], Red Blood Count [Pending], Hemoglobin [Pending], Hematocrit [Pending], Mean Corpuscular Volume [Pending], Mean Corpuscular Hemoglobin [Pending], Mean Corpuscular Hemoglobin Concent [Pending], Red Cell Distribution Width [Pending], Platelet Count [Pending], Mean Platelet Volume [ Pending], Neutrophils (%) (Auto) [Pending], Lymphocytes (%) (Auto) [Pending], Monocytes (%) (Auto) [Pending], Eosinophils (%) (Auto) [Pending], Basophils (%) (Auto) [Pending], Sodium Level [Pending], Potassium Level [Pending], Chloride Level [Pending], Carbon Dioxide Level [Pending], Blood Urea Nitrogen [Pending], Creatinine [Pending], Estimat Glomerular Filtration Rate [Pending], Glucose Level [Pending], Calcium Level [Pending], Total Bilirubin [Pending], Aspartate Amino Transf (AST/SGOT) [Pending], Alanine Aminotransferase (ALT/SGPT) [Pending] , Alkaline Phosphatase [Pending], Total Protein [Pending], Albumin [Pending], Globulin [Pending], Reticulocyte Count [Pending], Prothrombin Time 10.7, Prothromb Time International Ratio 1.0, Activated Partial Thromboplast Time 22L , Iron Level [Pending], Unsaturated Iron Binding [Pending], Ferritin [Pending], Triglycerides Level [Pending], Cholesterol Level [Pending], LDL Cholesterol [ Pending], HDL Cholesterol [Pending], Cholesterol/HDL Ratio [Pending], Carcinoembryonic Antigen [Pending], Vitamin B12 Level [Pending], Folate [Pending ], Thyroid Stimulating Hormone (TSH) [Pending], Free Thyroxine [Pending] Height (Feet): 5 Height (Inches): 3.00 Weight (Pounds): 112 General Appearance: alert EENT: normal ENT inspection Neck: supple Cardiovascular: normal rate Respiratory/Chest: decreased breath sounds Abdomen: soft, hypoactive bowel sounds, tender Extremities: non-tender Luiz Albert MD Jan 21, 2018 08:13
[2018-01-21 08:16] LABS: BASOPHILS % (AUTO) 1.3 % (0.0-2.0); EOSINOPHILS % (AUTO) 2.9 % (0.0-3.0); HEMATOCRIT 33.7 % (37.0-47.0); HEMOGLOBIN 10.2 G/DL (12.0-16.0); LYMPHOCYTES % (AUTO) 42.6 % (20.0-45.0); MEAN CORPUSCULAR VOLUME 90 FL (80-99); MONOCYTES % (AUTO) 7.4 % (1.0-10.0); NEUTROPHILS % (AUTO) 45.8 % (45.0-75.0); PLATELET COUNT 263 K/UL (150-450); RED BLOOD COUNT 3.74 M/UL (4.20-5.40); RED CELL DISTRIBUTION WIDTH 12.9 % (11.6-14.8); WHITE BLOOD COUNT 4.7 K/UL (4.8-10.8)
--- NOTE | 2018-01-21 08:25 | Pulmonology Progress Note ---
Assessment/Plan Assessment/Plan ASSESSMENT abdominal pain constipation fecal impaction HTN anemia history of CVA with left-sided hemiparesis GERD hypothyroidism probably protein calorie malnutrition PLAN OF CARE Med Surg floor s/p IVF GI follows bowel regimen instituted started to have BM continue vigorous bowel regimen antiemetics prn diet as tolerated pain management prn DVT, GI prophylaxis venous duplex bilateral lower extremity anemia workup c/w with anemia of chronic disease monitor H&H with goal to keep Hgb above 7 lipid panel stable continue a/PLT therapy with ASA TSH WNL, continue current dose of Synthroid BP management with HERMES inhibitor dietary eval re recs to improve nutritional status supportive care dc plan soon case discussed and evaluated by supervising physician Subjective Allergies: Coded Allergies: NO KNOWN ALLERGIES (Unverified Allergy, Unknown, 04/30/15) Subjective had BM yesterday still feels bloated and need to have more BM denies SOB, chest pain Objective Last 24 Hour Vital Signs Date Time Temp Pulse Resp B/P (MAP) Pulse Ox O2 Delivery O2 Flow Rate FiO2 01/21/18 04:00 97.2 62 20 107/61 (76) 97 97.2 01/21/18 00:00 97.1 56 19 96/60 (72) 98 97.1 01/20/18 21:00 Room Air 01/20/18 20:00 98.0 64 19 105/60 (75) 98 98.0 01/20/18 17:40 Room Air 01/20/18 16:05 98.5 80 16 108/62 98 Room Air 98.5 01/20/18 15:13 98.5 80 16 108/62 98 Room Air 98.5 01/20/18 14:10 98.5 70 16 107/58 97 Room Air 98.5 01/20/18 12:39 98.5 77 18 115/60 97 Room Air 98.5 01/20/18 12:38 98.5 01/20/18 11:39 98.5 01/20/18 11:02 98.5 84 18 118/70 97 Room Air 98.4 Intake and Output 01/20/18 01/21/18 19:00 07:00 Intake Total 120 ml 240 ml Balance 120 ml 240 ml Intake Oral 120 ml 240 ml # Voids 2 2 # Bowel Movements 2 General Appearance: no acute distress, other - awake, elderly, bedridden cachetic female in NAD HEENT: normocephalic, atraumatic, anicteric, mucous membranes moist Respiratory/Chest: lungs clear, no respiratory distress, no accessory muscle use Cardiovascular: normal rate Abdomen: normal bowel sounds, soft, non tender Extremities: no edema, pedal pulses normal Neurologic/Psychiatric: abnormal gait, alert, responsive Musculoskeletal: atrophy - BLE Laboratory Tests 01/20/18 11:20: White Blood Count 6.7, Red Blood Count 4.10L, Hemoglobin 11.2L, Hematocrit 36.2L , Mean Corpuscular Volume 88, Mean Corpuscular Hemoglobin 27.4, Mean Corpuscular Hemoglobin Concent 31.0L, Red Cell Distribution Width 12.7, Platelet Count 314, Mean Platelet Volume 6.3L, Neutrophils (%) (Auto) 55.3, Lymphocytes (%) (Auto) 35.7, Monocytes (%) (Auto) 6.8, Eosinophils (%) (Auto) 1.2, Basophils (%) (Auto) 1.0, Urine Color Pale yellow, Urine Appearance Clear, Urine pH 7, Urine Specific [place] 1.005, Urine Protein Negative, Urine Glucose (UA) Negative, Urine Ketones Negative, Urine Blood Negative, Urine Nitrite Negative, Urine Bilirubin Negative, Urine Urobilinogen Normal, Urine Leukocyte Esterase 1+H, Urine RBC 0, Urine WBC 0-2, Urine Squamous Epithelial Cells Occasional, Urine Bacteria None, Sodium Level 139, Potassium Level 4.7, Chloride Level 103, Carbon Dioxide Level 25, Anion Gap 11, Blood Urea Nitrogen 25H, Creatinine 1.3, Estimat Glomerular Filtration Rate , Glucose Level 102, Calcium Level 9.9, Total Bilirubin 0.5, Aspartate Amino Transf (AST/SGOT) 20, Alanine Aminotransferase (ALT/SGPT) 22, Alkaline Phosphatase 88, Total Protein 8.0, Albumin 3.7, Globulin 4.3, Albumin/Globulin Ratio 0.9L, Lipase 258 01/21/18 06:50: White Blood Count 4.7L, Red Blood Count 3.74L, Hemoglobin 10.2L, Hematocrit 33.7L, Mean Corpuscular Volume 90, Mean Corpuscular Hemoglobin 27.3, Mean Corpuscular Hemoglobin Concent 30.4L, Red Cell Distribution Width 12.9, Platelet Count 263, Mean Platelet Volume 6.5, Neutrophils (%) (Auto) 45.8, Lymphocytes (%) (Auto) 42.6, Monocytes (%) (Auto) 7.4, Eosinophils (%) (Auto) 2.9, Basophils (%) (Auto) 1.3, Sodium Level [Pending], Potassium Level [Pending] , Chloride Level [Pending], Carbon Dioxide Level [Pending], Blood Urea Nitrogen [Pending], Creatinine [Pending], Estimat Glomerular Filtration Rate [Pending], Glucose Level [Pending], Calcium Level [Pending], Total Bilirubin [Pending], Aspartate Amino Transf (AST/SGOT) [Pending], Alanine Aminotransferase (ALT/SGPT ) [Pending], Alkaline Phosphatase [Pending], Total Protein [Pending], Albumin [ Pending], Globulin [Pending], Reticulocyte Count [Pending], Prothrombin Time 10.7, Prothromb Time International Ratio 1.0, Activated Partial Thromboplast Time 22L, Iron Level [Pending], Unsaturated Iron Binding [Pending], Ferritin [ Pending], Triglycerides Level [Pending], Cholesterol Level [Pending], LDL Cholesterol [Pending], HDL Cholesterol [Pending], Cholesterol/HDL Ratio [Pending ], Carcinoembryonic Antigen [Pending], Vitamin B12 Level [Pending], Folate [ Pending], Thyroid Stimulating Hormone (TSH) [Pending], Free Thyroxine [Pending] Current Medications Medications (Trade) Dose Ordered Sig/Marilu Route PRN Reason Start Time Stop Time Status Last Admin Dose Admin Acetaminophen (Tylenol) 650 mg Q4H PRN ORAL fever 01/20/18 13:15 02/19/18 13:14 Al Hydroxide/Mg Hydroxide (Mylanta II) 30 ml Q6H PRN ORAL dyspepsia 01/20/18 13:15 02/19/18 13:14 Aspirin (ASA) 81 mg DAILY ORAL 01/21/18 09:00 02/20/18 08:59 Clonidine HCl (Catapres Tab) 0.1 mg Q6H PRN ORAL sbp more than 160 01/20/18 13:15 02/19/18 13:14 Dextrose (Dextrose 50%) 25 ml Q30M PRN IV Hypoglycemia 01/20/18 13:30 02/19/18 13:18 Dextrose (Dextrose 50%) 50 ml Q30M PRN IV hypoglycemia 01/20/18 13:30 02/19/18 13:29 Docusate Sodium (Colace) 100 mg TID ORAL 01/20/18 18:00 02/19/18 17:59 Iopamidol (Isovue-300 100ml) 100 ml NOW PRN INJ Radiology Procedure 01/20/18 11:45 Lactulose (Cephulac) 30 gm THREE TIMES A DAY ORAL 01/20/18 18:00 02/19/18 17:59 Levothyroxine Sodium (Synthroid) 50 mcg DAILY@0630 ORAL 01/21/18 06:30 02/20/18 06:29 01/21/18 06:11 Lisinopril (Prinivil) 20 mg DAILY ORAL 01/21/18 09:00 02/20/18 08:59 Lorazepam (Ativan 2mg/ml 1ml) 0.5 mg Q4H PRN IV For Anxiety 01/20/18 13:15 01/27/18 13:14 01/20/18 13:49 Mineral Oil (Fleet's Mineral Oil Enema) 133 ml Q4H PRN RECTAL CONSTIPATION 01/20/18 14:02 02/19/18 13:59 01/20/18 15:12 Morphine Sulfate (Morphine Sulfate) 1 mg Q4H PRN IVP For Pain 01/20/18 13:15 01/27/18 13:14 Ondansetron HCl (Zofran) 4 mg Q6H PRN IVP Nausea & Vomiting 01/20/18 13:15 02/19/18 13:14 Polyethylene Glycol (Miralax) 17 gm BEDTIME ORAL 01/20/18 21:00 02/19/18 20:59 Polyethylene Glycol (Miralax) 17 gm HSPRN PRN ORAL Constipation 01/20/18 13:15 02/19/18 13:14 Sennosides (Senokot) 8.6 tab DAILY ORAL 01/21/18 09:00 02/20/18 08:59 Zolpidem Tartrate (Ambien) 5 mg HSPRN PRN ORAL Insomnia 01/20/18 13:15 01/27/18 13:14 01/20/18 20:07 Areli Mendoza [employer] Jan 21, 2018 08:25
[2018-01-21 08:28] LABS: % IRON SATURATION 38 % (15-50); IRON 73 ug/dL (50-175); TOTAL IRON BINDING CAPACITY 192 ug/dL (250-450)
[2018-01-21 08:33] LABS: ANION GAP 6 mmol/L (5-15); BLOOD UREA NITROGEN 20 mg/dL (7-18); CALCIUM 8.9 MG/DL (8.5-10.1); CARBON DIOXIDE 28 MMOL/L (21-32); CHLORIDE 106 MMOL/L (98-107); CREATININE 1.1 MG/DL (0.55-1.30); POTASSIUM 4.7 MMOL/L (3.5-5.1); SODIUM 140 MMOL/L (136-145)
[2018-01-21 08:34] LABS: ALANINE AMINOTRANSFERASE 20 U/L (12-78); ALBUMIN 3.2 G/DL (3.4-5.0); ALBUMIN/GLOBULIN RATIO 0.8 (1.0-2.7); ALKALINE PHOSPHATASE 81 U/L (46-116); ASPARTATE AMINO TRANSFERASE 21 U/L (15-37); BILIRUBIN,TOTAL 0.5 MG/DL (0.2-1.0); CHOLESTEROL 125 MG/DL (< 200); FERRITIN 462 NG/ML (8-388); HDL CHOLESTEROL 40 MG/DL (40-60); TRIGLYCERIDES 68 MG/DL (30-150)
[2018-01-21] MEDS: Docusate 100mg cap ORAL SCH ×3 (09:00→17:28)
[2018-01-21] MEDS: Lisinopril 20mg tab ORAL SCH (09:00)
[2018-01-21] MEDS: Aspirin Baby 81mg ORAL SCH (09:00)
[2018-01-21] MEDS: Lactulose 20gm/30ml UDC ORAL SCH ×3 (09:00→17:27)
[2018-01-21] MEDS ORDERED: Sennosides 8.6mg ORAL SCH (09:00)
--- NOTE | 2018-01-21 09:02 | General Progress Note ---
Assessment/Plan Problem List: (1) Urinary tract infection ICD Codes: N39.0 - Urinary tract infection, site not specified SNOMED: 09752059 (2) Osteoarthritis of right knee ICD Codes: M17.9 - Osteoarthritis of knee, unspecified SNOMED: 365081932 (3) Anemia ICD Codes: D64.9 - Anemia, unspecified SNOMED: 484630722 (4) Diabetes ICD Codes: E11.9 - Type 2 diabetes mellitus without complications SNOMED: 55636100 (5) Fecal impaction ICD Codes: K56.41 - Fecal impaction SNOMED: 88217167 (6) Constipation ICD Codes: K59.00 - Constipation, unspecified SNOMED: 84178436 (7) Abdominal pain ICD Codes: R10.9 - Unspecified abdominal pain SNOMED: 13948625 (8) Cerebrovascular accident with involvement of left side of body ICD Codes: I63.9 - Cerebral infarction, unspecified SNOMED: 976463576 Status: unchanged Assessment/Plan ot pt diet ivf abx laxitives prn cbc bmp am Subjective Constitutional: Reports: weakness Allergies: Coded Allergies: NO KNOWN ALLERGIES (Unverified Allergy, Unknown, 04/30/15) All Systems: reviewed and negative except above Subjective sl abd pain and constipated Objective Last 24 Hour Vital Signs Date Time Temp Pulse Resp B/P (MAP) Pulse Ox O2 Delivery O2 Flow Rate FiO2 01/21/18 08:00 98.1 68 20 108/63 (78) 99 98.1 01/21/18 04:00 97.2 62 20 107/61 (76) 97 97.2 01/21/18 00:00 97.1 56 19 96/60 (72) 98 97.1 01/20/18 21:00 Room Air 01/20/18 20:00 98.0 64 19 105/60 (75) 98 98.0 01/20/18 17:40 Room Air 01/20/18 16:05 98.5 80 16 108/62 98 Room Air 98.5 01/20/18 15:13 98.5 80 16 108/62 98 Room Air 98.5 01/20/18 14:10 98.5 70 16 107/58 97 Room Air 98.5 01/20/18 12:39 98.5 77 18 115/60 97 Room Air 98.5 01/20/18 12:38 98.5 01/20/18 11:39 98.5 01/20/18 11:02 98.5 84 18 118/70 97 Room Air 98.4 Intake and Output 01/20/18 01/21/18 19:00 07:00 Intake Total 120 ml 240 ml Balance 120 ml 240 ml Intake Oral 120 ml 240 ml # Voids 2 2 # Bowel Movements 2 Laboratory Tests 01/20/18 11:20: White Blood Count 6.7, Red Blood Count 4.10L, Hemoglobin 11.2L, Hematocrit 36.2L , Mean Corpuscular Volume 88, Mean Corpuscular Hemoglobin 27.4, Mean Corpuscular Hemoglobin Concent 31.0L, Red Cell Distribution Width 12.7, Platelet Count 314, Mean Platelet Volume 6.3L, Neutrophils (%) (Auto) 55.3, Lymphocytes (%) (Auto) 35.7, Monocytes (%) (Auto) 6.8, Eosinophils (%) (Auto) 1.2, Basophils (%) (Auto) 1.0, Urine Color Pale yellow, Urine Appearance Clear, Urine pH 7, Urine Specific [place] 1.005, Urine Protein Negative, Urine Glucose (UA) Negative, Urine Ketones Negative, Urine Blood Negative, Urine Nitrite Negative, Urine Bilirubin Negative, Urine Urobilinogen Normal, Urine Leukocyte Esterase 1+H, Urine RBC 0, Urine WBC 0-2, Urine Squamous Epithelial Cells Occasional, Urine Bacteria None, Sodium Level 139, Potassium Level 4.7, Chloride Level 103, Carbon Dioxide Level 25, Anion Gap 11, Blood Urea Nitrogen 25H, Creatinine 1.3, Estimat Glomerular Filtration Rate , Glucose Level 102, Calcium Level 9.9, Total Bilirubin 0.5, Aspartate Amino Transf (AST/SGOT) 20, Alanine Aminotransferase (ALT/SGPT) 22, Alkaline Phosphatase 88, Total Protein 8.0, Albumin 3.7, Globulin 4.3, Albumin/Globulin Ratio 0.9L, Lipase 258 01/21/18 06:50: White Blood Count 4.7L, Red Blood Count 3.74L, Hemoglobin 10.2L, Hematocrit 33.7L, Mean Corpuscular Volume 90, Mean Corpuscular Hemoglobin 27.3, Mean Corpuscular Hemoglobin Concent 30.4L, Red Cell Distribution Width 12.9, Platelet Count 263, Mean Platelet Volume 6.5, Neutrophils (%) (Auto) 45.8, Lymphocytes (%) (Auto) 42.6, Monocytes (%) (Auto) 7.4, Eosinophils (%) (Auto) 2.9, Basophils (%) (Auto) 1.3, Sodium Level 140, Potassium Level 4.7, Chloride Level 106, Carbon Dioxide Level 28, Anion Gap 6, Blood Urea Nitrogen 20H, Creatinine 1.1, Estimat Glomerular Filtration Rate , Glucose Level 83, Calcium Level 8.9, Total Bilirubin 0.5, Aspartate Amino Transf (AST/SGOT) 21, Alanine Aminotransferase (ALT/SGPT) 20, Alkaline Phosphatase 81, Total Protein 7.0, Albumin 3.2L, Globulin 3.8, Albumin/Globulin Ratio 0.8L, Reticulocyte Count [ Pending], Prothrombin Time 10.7, Prothromb Time International Ratio 1.0, Activated Partial Thromboplast Time 22L, Iron Level 73, Total Iron Binding Capacity 192L, Percent Iron Saturation 38, Unsaturated Iron Binding 119, Ferritin 462H, Triglycerides Level 68, Cholesterol Level 125, LDL Cholesterol 76 , HDL Cholesterol 40, Cholesterol/HDL Ratio 3.1L, Carcinoembryonic Antigen [ Pending], Vitamin B12 Level 443, Folate 12.1, Thyroid Stimulating Hormone (TSH) 0.731, Free Thyroxine 1.20 Height (Feet): 5 Height (Inches): 3.00 Weight (Pounds): 112 General Appearance: lethargic EENT: normal ENT inspection Neck: normal alignment Cardiovascular: normal peripheral pulses, normal rate, regular rhythm Respiratory/Chest: chest wall non-tender, lungs clear, normal breath sounds Abdomen: normal bowel sounds, non tender, soft Extremities: normal inspection Edema: no edema noted Arm (L), no edema noted Arm (R), no edema noted Leg (L), no edema noted Leg (R), no edema noted Pedal (L), no edema noted Pedal (R), no edema noted Generalized Neurologic: responsive, motor weakness Skin: normal pigmentation, warm/dry Olegario Dunaway DO Jan 21, 2018 09:02
[2018-01-21] MEDS: Sennosides 8.6mg ORAL SCH (09:20)
[2018-01-21] MEDS: Fleet's Mineral Oil Enema RECTAL PRN (09:22)
[2018-01-21 12:00] VITALS: BP 115/96
[2018-01-21 16:00] VITALS: BP 118/62
[2018-01-21] MEDS: Morphine Sulfate 2mg/ml Inj IVP PRN (17:25)
[2018-01-21 20:00] VITALS: BP 106/59
[2018-01-21] MEDS: Zolpidem 5mg tab ORAL PRN (20:34)
[2018-01-21] MEDS: Miralax 17gm pkt ORAL SCH (20:34)
[2018-01-22] VITALS: BP 101/54
[2018-01-22] MEDS: Morphine Sulfate 2mg/ml Inj IVP PRN ×3 (02:52→12:52)
[2018-01-22 04:00] VITALS: BP 109/59
--- NOTE | 2018-01-22 07:02 | General Progress Note ---
Assessment/Plan Problem List: (1) Abdominal pain ICD Codes: R10.9 - Unspecified abdominal pain SNOMED: 98575892 (2) Constipation ICD Codes: K59.00 - Constipation, unspecified SNOMED: 40991535 (3) Vomiting ICD Codes: R11.10 - Vomiting, unspecified SNOMED: 143784950 (4) Fecal impaction ICD Codes: K56.41 - Fecal impaction SNOMED: 30955568 (5) Diabetes ICD Codes: E11.9 - Type 2 diabetes mellitus without complications SNOMED: 41946446 (6) Anemia ICD Codes: D64.9 - Anemia, unspecified SNOMED: 269752780 (7) Cerebrovascular accident with involvement of left side of body ICD Codes: I63.9 - Cerebral infarction, unspecified SNOMED: 648565935 Assessment/Plan anemia work up bowel regimen fu labs per patient she has had recent EGD and colonoscopy and does not want one now wants to go home with pain meds Subjective Allergies: Coded Allergies: NO KNOWN ALLERGIES (Unverified Allergy, Unknown, 04/30/15) Subjective abd pain had BM with laxatives Objective Last 24 Hour Vital Signs Date Time Temp Pulse Resp B/P (MAP) Pulse Ox O2 Delivery O2 Flow Rate FiO2 01/22/18 04:00 98.3 63 18 109/59 (76) 99 98.3 01/22/18 00:00 98.6 61 18 101/54 (70) 98 98.6 01/21/18 21:00 Room Air 01/21/18 20:00 98.8 70 19 106/59 (75) 97 98.8 01/21/18 16:00 98.5 66 20 118/62 (80) 94 98.5 01/21/18 12:00 98.0 68 20 115/96 (102) 96 98.0 01/21/18 09:00 108/63 01/21/18 08:45 Room Air 01/21/18 08:00 98.1 68 20 108/63 (78) 99 98.1 Intake and Output 01/21/18 01/22/18 19:00 07:00 Intake Total 90 ml 240 ml Balance 90 ml 240 ml Intake Oral 90 ml 240 ml # Voids 3 2 # Bowel Movements 1 Procedure: CT Abdomen Pelvis w/Contrast Clinical Indication: Abdominal pain, nausea, urinary tract infection symptoms Technique: No oral contrast utilized, per emergency room physician request IV administration nonionic contrast. Venous phase spiral acquisition obtained through the abdomen and pelvis. Multiplanar reconstructions were generated. Total dose length product 941.15 mGycm. CTDIvol(s) 19.07 mGy. Dose reduction achieved using automated exposure control Comparison: none Findings: The appendix is normal. Some fluid is seen in the ascending colon. The proximal rectum is mildly distended by gas and stool. No evidence of diverticulosis or diverticulitis. No small bowel distention. No free or loculated intraperitoneal gas or fluid is evident. The distal esophagus, stomach, duodenum are unremarkable. The gallbladder is surgically absent. Central intrahepatic bile ducts and the common bile duct are dilated, extra hepatic ducts measuring up to 12 cm in diameter. The downstream common bile duct is not well visualized, but no definite downstream obstructive lesion is demonstrated. The liver is unremarkable. The pancreatic duct is mildly ectatic. The pancreas is otherwise unremarkable. The spleen contains a few small calcifications. The adrenals are unremarkable. The left kidney demonstrates a nonobstructive lower pole calyceal calculus which measures 4 mm in diameter. Both kidneys demonstrate multiple cysts as well as subcentimeter low-attenuation lesions which are too small to characterize. No retroperitoneal or mesenteric mass or adenopathy. No pelvic mass or adenopathy. There is thickening of the endometrium, which is thickened to up to 8 mm. No uterine or adnexal mass demonstrated. The urinary bladder contains a few gas bubbles. There are also some calcifications dependently in the bladder bilaterally, measuring up to 3 mm in diameter. There is a small fat-containing right inguinal hernia. Dependent atelectatic changes are seen at the lung bases bilaterally. The heart is borderline enlarged. There is a wedge compression fracture deformity of the T12 vertebral body. There is is a mild vertebra plana type compression fracture deformity of the L5 vertebral body Impression: No definite acute process. There is mild nonspecific fluid in the ascending colon and slight distention of the rectum by gas and stool. Surgically absent gallbladder. Dilated extra hepatic and central intrahepatic bile ducts, could be related to age and postcholecystectomy state but are rather striking. No definite downstream obstructive lesion demonstrated, but correlation with liver function tests is recommended with consideration for MRCP if clinically indicated Nonspecific mildly ectatic pancreatic duct Mildly thickened endometrium, may raise concern in a postmenopausal female. Consider further assessment with ultrasound. Nonobstructive left lower pole calyceal calculus. Bilateral multiple bladder calculi Gas bubbles within the bladder. Suspect on the basis of prior instrumentation, but if no history of such could indicate infection with gas-forming organism. Correlate with clinical history and findings Borderline cardiomegaly T12 and L5 vertebral body compression fracture deformities, age indeterminate. If clinically relevant, consider MRI for better characterization Incidental findings as noted, including bilateral basilar pulmonary dependent parenchymal atelectatic changes, fat-containing right inguinal hernia, splenic granulomatous calcifications Bilateral renal cysts. Bilateral subcentimeter low-attenuation renal lesions which are too small to characterize, most likely benign simple cysts The CT scanner at [facility] is accredited by the [employer] and the scans are performed using protocols designed to limit radiation exposure to as low as reasonably achievable to attain images of sufficient resolution adequate for diagnostic evaluation. Dictated By: Arnold Victoria MD Electronically Signed By: Arnold Victoria MD Signed Date/Time Height (Feet): 5 Height (Inches): 3.00 Weight (Pounds): 112 General Appearance: alert EENT: normal ENT inspection Neck: supple Cardiovascular: normal rate Respiratory/Chest: lungs clear Abdomen: soft, hypoactive bowel sounds, tender Extremities: non-tender Luiz Albert MD Jan 22, 2018 07:02
--- NOTE | 2018-01-22 07:54 | Pulmonology Progress Note ---
Assessment/Plan Assessment/Plan ASSESSMENT abdominal pain constipation fecal impaction HTN anemia history of CVA with left-sided hemiparesis GERD hypothyroidism probably protein calorie malnutrition PLAN OF CARE Med Surg floor s/p IVF GI follows bowel regimen instituted started to have BM continue vigorous bowel regimen antiemetics prn diet as tolerated pain management prn DVT, GI prophylaxis venous duplex bilateral lower extremity anemia workup c/w with anemia of chronic disease check CEA, stool OB monitor H&H with goal to keep Hgb above 7 lipid panel stable continue a/PLT therapy with ASA TSH WNL, continue current dose of Synthroid BP management with HERMES inhibitor dietary eval re recs to improve nutritional status supportive care dc plan soon case discussed and evaluated by supervising physician Subjective Allergies: Coded Allergies: NO KNOWN ALLERGIES (Unverified Allergy, Unknown, 04/30/15) Subjective had BM denies SOB, chest pain Objective Last 24 Hour Vital Signs Date Time Temp Pulse Resp B/P (MAP) Pulse Ox O2 Delivery O2 Flow Rate FiO2 01/22/18 04:00 98.3 63 18 109/59 (76) 99 98.3 01/22/18 00:00 98.6 61 18 101/54 (70) 98 98.6 01/21/18 21:00 Room Air 01/21/18 20:00 98.8 70 19 106/59 (75) 97 98.8 01/21/18 16:00 98.5 66 20 118/62 (80) 94 98.5 01/21/18 12:00 98.0 68 20 115/96 (102) 96 98.0 01/21/18 09:00 108/63 01/21/18 08:45 Room Air 01/21/18 08:00 98.1 68 20 108/63 (78) 99 98.1 Intake and Output 01/21/18 01/22/18 19:00 07:00 Intake Total 90 ml 240 ml Balance 90 ml 240 ml Intake Oral 90 ml 240 ml # Voids 3 2 # Bowel Movements 1 Objective General Appearance: no acute distress, other - awake, elderly, bedridden cachetic female in NAD HEENT: normocephalic, atraumatic, anicteric, mucous membranes moist Respiratory/Chest: lungs clear, no respiratory distress, no accessory muscle use Cardiovascular: normal rate Abdomen: normal bowel sounds, soft, non tender Extremities: no edema, pedal pulses normal Neurologic/Psychiatric: abnormal gait, alert, responsive Musculoskeletal: atrophy - BLE Current Medications Medications (Trade) Dose Ordered Sig/Marilu Route PRN Reason Start Time Stop Time Status Last Admin Dose Admin Acetaminophen (Tylenol) 650 mg Q4H PRN ORAL fever 01/20/18 13:15 02/19/18 13:14 01/21/18 20:33 Al Hydroxide/Mg Hydroxide (Mylanta II) 30 ml Q6H PRN ORAL dyspepsia 01/20/18 13:15 02/19/18 13:14 Aspirin (ASA) 81 mg DAILY ORAL 01/21/18 09:00 02/20/18 08:59 Clonidine HCl (Catapres Tab) 0.1 mg Q6H PRN ORAL sbp more than 160 01/20/18 13:15 02/19/18 13:14 Dextrose (Dextrose 50%) 25 ml Q30M PRN IV Hypoglycemia 01/20/18 13:30 02/19/18 13:18 Dextrose (Dextrose 50%) 50 ml Q30M PRN IV hypoglycemia 01/20/18 13:30 02/19/18 13:29 Docusate Sodium (Colace) 100 mg TID ORAL 01/20/18 18:00 02/19/18 17:59 01/21/18 12:06 Iopamidol (Isovue-300 100ml) 100 ml NOW PRN INJ Radiology Procedure 01/20/18 11:45 Lactulose (Cephulac) 30 gm THREE TIMES A DAY ORAL 01/20/18 18:00 02/19/18 17:59 01/21/18 12:06 Levothyroxine Sodium (Synthroid) 50 mcg DAILY@0630 ORAL 01/21/18 06:30 02/20/18 06:29 01/22/18 06:34 Lisinopril (Prinivil) 20 mg DAILY ORAL 01/21/18 09:00 02/20/18 08:59 Lorazepam (Ativan 2mg/ml 1ml) 0.5 mg Q4H PRN IV For Anxiety 01/20/18 13:15 01/27/18 13:14 01/20/18 13:49 Mineral Oil (Fleet's Mineral Oil Enema) 133 ml Q4H PRN RECTAL CONSTIPATION 01/20/18 14:02 02/19/18 13:59 01/21/18 09:22 Morphine Sulfate (Morphine Sulfate) 1 mg Q4H PRN IVP For Pain 01/20/18 13:15 01/27/18 13:14 01/22/18 02:52 Ondansetron HCl (Zofran) 4 mg Q6H PRN IVP Nausea & Vomiting 01/20/18 13:15 02/19/18 13:14 Polyethylene Glycol (Miralax) 17 gm BEDTIME ORAL 01/20/18 21:00 02/19/18 20:59 Polyethylene Glycol (Miralax) 17 gm HSPRN PRN ORAL Constipation 01/20/18 13:15 02/19/18 13:14 Sennosides (Senokot) 1 tab DAILY ORAL 01/21/18 09:20 02/20/18 09:19 Zolpidem Tartrate (Ambien) 5 mg HSPRN PRN ORAL Insomnia 01/20/18 13:15 01/27/18 13:14 01/21/18 20:34 Areli Mendoza NP Jan 22, 2018 07:54
[2018-01-22 08:00] VITALS: BP 125/68
[2018-01-22 08:24] LABS: BASOPHILS % (AUTO) 0.7 % (0.0-2.0); EOSINOPHILS % (AUTO) 1.7 % (0.0-3.0); HEMOGLOBIN 10.1 G/DL (12.0-16.0); LYMPHOCYTES % (AUTO) 29.2 % (20.0-45.0); MEAN CORPUSCULAR VOLUME 89 FL (80-99); MONOCYTES % (AUTO) 7.2 % (1.0-10.0); NEUTROPHILS % (AUTO) 61.2 % (45.0-75.0); PLATELET COUNT 254 K/UL (150-450); RED BLOOD COUNT 3.69 M/UL (4.20-5.40); RED CELL DISTRIBUTION WIDTH 12.6 % (11.6-14.8); WHITE BLOOD COUNT 6.1 K/UL (4.8-10.8)
[2018-01-22] MEDS: Aspirin Baby 81mg ORAL SCH (08:40)
[2018-01-22] MEDS: Docusate 100mg cap ORAL SCH ×3 (08:40→17:07)
[2018-01-22] MEDS: Lactulose 20gm/30ml UDC ORAL SCH ×3 (08:40→17:07)
[2018-01-22] MEDS: Lisinopril 20mg tab ORAL SCH (08:40)
[2018-01-22] MEDS: Sennosides 8.6mg ORAL SCH (08:41)
[2018-01-22 08:44] LABS: ANION GAP 11 mmol/L (5-15); BLOOD UREA NITROGEN 19 mg/dL (7-18); CARBON DIOXIDE 24 MMOL/L (21-32); CHLORIDE 105 MMOL/L (98-107); POTASSIUM 4.3 MMOL/L (3.5-5.1); SODIUM 140 MMOL/L (136-145)
--- NOTE | 2018-01-22 08:49 | General Progress Note ---
Assessment/Plan Problem List: (1) Urinary tract infection ICD Codes: N39.0 - Urinary tract infection, site not specified SNOMED: 77018522 (2) Osteoarthritis of right knee ICD Codes: M17.9 - Osteoarthritis of knee, unspecified SNOMED: 779942526 (3) Anemia ICD Codes: D64.9 - Anemia, unspecified SNOMED: 917701559 (4) Diabetes ICD Codes: E11.9 - Type 2 diabetes mellitus without complications SNOMED: 97853094 (5) Fecal impaction ICD Codes: K56.41 - Fecal impaction SNOMED: 43929840 (6) Constipation ICD Codes: K59.00 - Constipation, unspecified SNOMED: 44843791 (7) Abdominal pain ICD Codes: R10.9 - Unspecified abdominal pain SNOMED: 12481720 (8) Cerebrovascular accident with involvement of left side of body ICD Codes: I63.9 - Cerebral infarction, unspecified SNOMED: 317834327 Status: stable, progressing Assessment/Plan ot pt diet ivf abx laxitives prn cbc bmp am dc plan Subjective Constitutional: Reports: weakness Allergies: Coded Allergies: NO KNOWN ALLERGIES (Unverified Allergy, Unknown, 04/30/15) All Systems: reviewed and negative except above Subjective sl abd pain and constipated Objective Last 24 Hour Vital Signs Date Time Temp Pulse Resp B/P (MAP) Pulse Ox O2 Delivery O2 Flow Rate FiO2 01/22/18 08:40 125/68 01/22/18 08:00 98.1 74 18 125/68 (87) 96 98.1 01/22/18 04:00 98.3 63 18 109/59 (76) 99 98.3 01/22/18 00:00 98.6 61 18 101/54 (70) 98 98.6 01/21/18 21:00 Room Air 01/21/18 20:00 98.8 70 19 106/59 (75) 97 98.8 01/21/18 16:00 98.5 66 20 118/62 (80) 94 98.5 01/21/18 12:00 98.0 68 20 115/96 (102) 96 98.0 01/21/18 09:00 108/63 Intake and Output 01/21/18 01/22/18 19:00 07:00 Intake Total 90 ml 240 ml Balance 90 ml 240 ml Intake Oral 90 ml 240 ml # Voids 3 2 # Bowel Movements 1 Laboratory Tests 01/22/18 08:00: White Blood Count 6.1, Red Blood Count 3.69L, Hemoglobin 10.1L, Hematocrit 33.0L , Mean Corpuscular Volume 89, Mean Corpuscular Hemoglobin 27.2, Mean Corpuscular Hemoglobin Concent 30.5L, Red Cell Distribution Width 12.6, Platelet Count 254, Mean Platelet Volume 6.5, Neutrophils (%) (Auto) 61.2, Lymphocytes (%) (Auto) 29.2, Monocytes (%) (Auto) 7.2, Eosinophils (%) (Auto) 1.7, Basophils (%) (Auto) 0.7, Sodium Level 140, Potassium Level 4.3, Chloride Level 105, Carbon Dioxide Level 24, Anion Gap 11, Blood Urea Nitrogen 19H, Creatinine 1.0, Estimat Glomerular Filtration Rate , Glucose Level 94, Calcium Level 9.0 Height (Feet): 5 Height (Inches): 3.00 Weight (Pounds): 112 General Appearance: lethargic EENT: normal ENT inspection Neck: normal alignment Cardiovascular: normal peripheral pulses, normal rate Respiratory/Chest: chest wall non-tender, lungs clear, normal breath sounds Abdomen: normal bowel sounds, non tender, soft Extremities: normal inspection Edema: no edema noted Arm (L), no edema noted Arm (R), no edema noted Leg (L), no edema noted Leg (R), no edema noted Pedal (L), no edema noted Pedal (R), no edema noted Generalized Neurologic: responsive, motor weakness Skin: normal pigmentation, warm/dry Olegario Dunaway DO Jan 22, 2018 08:49
[2018-01-22 12:00] VITALS: BP 126/69
--- NOTE | 2018-01-22 13:57 | Consultation ---
History of Present Illness General Date patient seen: Jan 22, 2018 Chief Complaint: Abdominal Pain Referring physician: MAX YOUNG Reason for Consultation: ABDOMINAL PAIN Present Illness HPI 72 year old female with multiple medical comorbidities presented with abdominal pain. states was unable to have BM for days. pain generalized abdominal cramping that was worsening. no n/v/f/c. has had similar episodes in past. on admission noted to have sacral wound. surgery called to evaluate and assist with care /management. patient states she spends most of her time in bed given disability. she tries to turn often. known pressure ulcer and states at halfway is visited regularly by wound care team. Allergies: Coded Allergies: NO KNOWN ALLERGIES (Unverified Allergy, Unknown, 04/30/15) Medication History Scheduled Ascorbic Acid* (Vitamin C*), 250 MG ORAL DAILY, (Reported) Aspirin* (Aspirin*), 81 MG ORAL DAILY, (Reported) Atorvastatin Calcium* (Lipitor*), 10 MG ORAL BEDTIME, (Reported) Clonidine Hcl (Clonidine Hcl), 0.1 MG PO Q6HR, (Reported) Levothyroxine Sodium (Levothyroxine Sodium), 50 MCG ORAL DAILY, (Reported) Temazepam (Temazepam), 15 MG PO QHS, (Reported) Valsartan/Hydrochlorothiazide 160-25MG (Diovan Hct 160-25 Mg Tablet), 1 TAB ORAL DAILY, (Reported) Scheduled PRN Hydrocodone Bit/Acetaminophen 5-325* ([place] 5-325*), 1 TAB ORAL Q6H PRN for For Pain, (Reported) Miscellaneous Medications Brimonidine Tartrate (Alphagan P), 5 ML OP, (Reported) Calcium Carbonate (Calcium Carbonate), 650 MG GT, (Reported) Ibuprofen (Ibuprofen), 600 MG PO, (Reported) Menthol (Bengay), 113 GM TP, (Reported) Discontinued Medications Baclofen* (Baclofen*), 10 MG ORAL THREE TIMES A DAY, (Reported) Discontinued Reason: Pt stopped taking med Bisacodyl* (Dulcolax*), 10 MG ORAL DAILY, (Reported) Discontinued Reason: Pt stopped taking med Chlorhexidine Gluconate (Chlorhexidine Gluconate), 15 ML MM, (Reported) Discontinued Reason: MD discontinued med Chlorhexidine Gluconate* (Hibiclens*), 118 ML TP, (Reported) Discontinued Reason: MD discontinued med Dextromethorphan Polistirex (Delsym), 30 MG PO Q6HR, (Reported) Discontinued Reason: Pt stopped taking med Docusate Sodium* (Docusate Sodium*), 250 MG ORAL TWICE A DAY, (Reported) Discontinued Reason: Pt stopped taking med Guaifenesin (Bela-Tussin), 100 MG PO Q6HR, (Reported) Discontinued Reason: Pt stopped taking med Heparin Sod (Porcine) (Heparin Sodium*), 5,000 UNITS SUBQ DAILY, (Reported) Discontinued Reason: Pt stopped taking med Hydrocodone Bit/Acetaminophen 5-325* ([place] 5-325*), 1 TAB ORAL Q6H PRN for For Pain, (Reported) Discontinued Reason: Pt stopped taking med Ibuprofen* (Motrin Ib*), 600 MG ORAL Q8HR PRN for Pain Scale (3-5), (Reported) Discontinued Reason: Pt stopped taking med Ipratropium/Albuterol Sulfate (DuoNeb 0.5-3(2.5)mg/3ml), 3 ML HHN Q4HR, ( Reported) Discontinued Reason: Pt stopped taking med Levothyroxine Sodium* (Levothyroxine Sodium*), 50 MCG ORAL DAILY, (Reported) Discontinued Reason: Pt stopped taking med Lisinopril (Lisinopril*), 20 MG ORAL DAILY Discontinued Reason: MD discontinued med Magnesium Citrate (Magnesium Citrate), 296 ML PO DAILY PRN for Constipation, ( Reported) Discontinued Reason: Pt stopped taking med Magnesium Hydroxide* (Milk Of Magnesia*), 30 ML ORAL DAILY, (Reported) Discontinued Reason: Pt stopped taking med Multivitamin (Multi Vitamin Daily), 1 TAB ORAL DAILY, (Reported) Discontinued Reason: Pt stopped taking med Na Phos,M-B/Na Phos,Di-Ba* (Fleet Enema*), 118 ML RECTAL DAILY, (Reported) Discontinued Reason: Pt stopped taking med Omeprazole Magnesium (Omeprazole Magnesium), 20 MG PO DAILY, (Reported) Discontinued Reason: Pt stopped taking med Temazepam* (Restoril*), 15 MG ORAL BEDTIME PRN for Insomnia, (Reported) Discontinued Reason: Pt stopped taking med Travoprost (Travatan Z), 5 ML OP, (Reported) Discontinued Reason: Pt stopped taking med Trimethoprim/Sulfamethoxazole (Bactrim Ds Tablet), 1 EA ORAL TWICE A DAY Discontinued Reason: discontinued med Patient History History Provided By: Patient, Medical Record, PMD Healthcare decision maker ÁLVARO MARTIN Resuscitation status Advanced Directive on File No Past Medical/Surgical History Past Medical/Surgical History: (1) Sacral decubitus ulcer, stage III (2) Pneumonia (3) Thalamic pain syndrome (4) Right knee pain (5) Pain of left side of body (6) Left knee pain (7) Osteoarthritis of left knee (8) Anemia (9) Diabetes (10) Fecal impaction (11) Constipation (12) Abdominal pain (13) Vomiting (14) Cerebrovascular accident with involvement of left side of body (15) Urinary tract infection (16) Osteoarthritis of right knee Review of Systems All Other Systems: negative except mentioned in HPI Physical Exam General Appearance: no apparent distress, alert Lines, tubes and drains: peripheral HEENT: normocephalic, atraumatic, mucous membranes moist Neck: normal inspection Respiratory/Chest: normal breath sounds, no respiratory distress, no accessory muscle use Cardiovascular/Chest: normal rate, regular rhythm Abdomen: normal bowel sounds, non tender, soft, no organomegaly, no mass Extremities: other Skin Exam: other Neurologic: alert, oriented x 3 Last 24 Hour Vital Signs Date Time Temp Pulse Resp B/P (MAP) Pulse Ox O2 Delivery O2 Flow Rate FiO2 01/22/18 12:00 97.6 75 17 126/69 (88) 98 97.6 01/22/18 08:50 98.1 01/22/18 08:40 125/68 01/22/18 08:20 Room Air 01/22/18 08:00 98.1 74 18 125/68 (87) 96 98.1 01/22/18 04:00 98.3 63 18 109/59 (76) 99 98.3 01/22/18 00:00 98.6 61 18 101/54 (70) 98 98.6 01/21/18 21:00 Room Air 01/21/18 20:00 98.8 70 19 106/59 (75) 97 98.8 01/21/18 16:00 98.5 66 20 118/62 (80) 94 98.5 Intake and Output 01/21/18 01/22/18 19:00 07:00 Intake Total 90 ml 240 ml Balance 90 ml 240 ml Intake Oral 90 ml 240 ml # Voids 3 2 # Bowel Movements 1 Laboratory Tests Test 01/22/18 08:00 White Blood Count 6.1 K/UL (4.8-10.8) Red Blood Count 3.69 M/UL (4.20-5.40) L Hemoglobin 10.1 G/DL (12.0-16.0) L Hematocrit 33.0 % (37.0-47.0) L Mean Corpuscular Volume 89 FL (80-99) Mean Corpuscular Hemoglobin 27.2 PG (27.0-31.0) Mean Corpuscular Hemoglobin Concent 30.5 G/DL (32.0-36.0) L Red Cell Distribution Width 12.6 % (11.6-14.8) Platelet Count 254 K/UL (150-450) Mean Platelet Volume 6.5 FL (6.5-10.1) Neutrophils (%) (Auto) 61.2 % (45.0-75.0) Lymphocytes (%) (Auto) 29.2 % (20.0-45.0) Monocytes (%) (Auto) 7.2 % (1.0-10.0) Eosinophils (%) (Auto) 1.7 % (0.0-3.0) Basophils (%) (Auto) 0.7 % (0.0-2.0) Sodium Level 140 MMOL/L (136-145) Potassium Level 4.3 MMOL/L (3.5-5.1) Chloride Level 105 MMOL/L (98-107) Carbon Dioxide Level 24 MMOL/L (21-32) Anion Gap 11 mmol/L (5-15) Blood Urea Nitrogen 19 mg/dL (7-18) H Creatinine 1.0 MG/DL (0.55-1.30) Estimat Glomerular Filtration Rate mL/min (>60) Glucose Level 94 MG/DL (74-106) Calcium Level 9.0 MG/DL (8.5-10.1) Height (Feet): 5 Height (Inches): 3.00 Weight (Pounds): 112 Medications Current Medications Medications (Trade) Dose Ordered Sig/Marilu Route PRN Reason Start Time Stop Time Status Last Admin Dose Admin Acetaminophen (Tylenol) 650 mg Q4H PRN ORAL fever 01/20/18 13:15 02/19/18 13:14 01/21/18 20:33 Al Hydroxide/Mg Hydroxide (Mylanta II) 30 ml Q6H PRN ORAL dyspepsia 01/20/18 13:15 02/19/18 13:14 Aspirin (ASA) 81 mg DAILY ORAL 01/21/18 09:00 02/20/18 08:59 01/22/18 08:40 Clonidine HCl (Catapres Tab) 0.1 mg Q6H PRN ORAL sbp more than 160 01/20/18 13:15 02/19/18 13:14 Dextrose (Dextrose 50%) 25 ml Q30M PRN IV Hypoglycemia 01/20/18 13:30 02/19/18 13:18 Dextrose (Dextrose 50%) 50 ml Q30M PRN IV hypoglycemia 01/20/18 13:30 02/19/18 13:29 Docusate Sodium (Colace) 100 mg TID ORAL 01/20/18 18:00 02/19/18 17:59 01/21/18 12:06 Iopamidol (Isovue-300 100ml) 100 ml NOW PRN INJ Radiology Procedure 01/20/18 11:45 Lactulose (Cephulac) 30 gm THREE TIMES A DAY ORAL 01/20/18 18:00 02/19/18 17:59 01/21/18 12:06 Levothyroxine Sodium (Synthroid) 50 mcg DAILY@0630 ORAL 01/21/18 06:30 02/20/18 06:29 01/22/18 06:34 Lisinopril (Prinivil) 20 mg DAILY ORAL 01/21/18 09:00 02/20/18 08:59 01/22/18 08:40 Lorazepam (Ativan 2mg/ml 1ml) 0.5 mg Q4H PRN IV For Anxiety 01/20/18 13:15 01/27/18 13:14 01/20/18 13:49 Mineral Oil (Fleet's Mineral Oil Enema) 133 ml Q4H PRN RECTAL CONSTIPATION 01/20/18 14:02 02/19/18 13:59 01/21/18 09:22 Morphine Sulfate (Morphine Sulfate) 1 mg Q4H PRN IVP For Pain 01/20/18 13:15 01/27/18 13:14 01/22/18 12:52 Mupirocin (Bactroban Oint) 1 applic BID TOPIC 01/22/18 10:00 01/28/18 18:01 01/22/18 12:40 Ondansetron HCl (Zofran) 4 mg Q6H PRN IVP Nausea & Vomiting 01/20/18 13:15 02/19/18 13:14 Polyethylene Glycol (Miralax) 17 gm BEDTIME ORAL 01/20/18 21:00 02/19/18 20:59 Polyethylene Glycol (Miralax) 17 gm HSPRN PRN ORAL Constipation 01/20/18 13:15 02/19/18 13:14 Sennosides (Senokot) 1 tab DAILY ORAL 01/21/18 09:20 02/20/18 09:19 Zolpidem Tartrate (Ambien) 5 mg HSPRN PRN ORAL Insomnia 01/20/18 13:15 01/27/18 13:14 01/21/18 20:34 Assessment/Plan Problem List: (1) Sacral decubitus ulcer, stage III Assessment & Plan: small area of skin breakdown 1cm x 1cm on sacral region related to pressure. partial thickness stage III almost about to become full thickness. no drainage. no erythema. no edema. no odor. remaining area with chronic skin changes. seems to have had pressure partial thickness ulcer before in healing state now. turn q2h pressure release apply foam protective dressing thank you ICD Codes: L89.153 - Pressure ulcer of sacral region, stage 3 SNOMED: 856394589, 284293659 (2) Abdominal pain Assessment & Plan: likely constipation. resolving had scopes recently and not interested in them again bowel regimen as per GI ICD Codes: R10.9 - Unspecified abdominal pain SNOMED: 28268102 Status: stable Feliz Paez Jan 22, 2018 13:57
[2018-01-22 16:00] VITALS: BP 129/78
[2018-01-22 20:00] VITALS: BP 134/71
[2018-01-22] MEDS: Zolpidem 5mg tab ORAL PRN (20:42)
[2018-01-22] MEDS: Miralax 17gm pkt ORAL SCH (21:00)
[2018-01-23] VITALS: BP 97/57
[2018-01-23 04:00] VITALS: BP 108/57
[2018-01-23] MEDS: Fleet's Mineral Oil Enema RECTAL PRN (05:03)
[2018-01-23 08:00] VITALS: BP 126/67
[2018-01-23] MEDS: Sennosides 8.6mg ORAL SCH (09:39)
[2018-01-23] MEDS: Aspirin Baby 81mg ORAL SCH (09:39)
[2018-01-23] MEDS: Docusate 100mg cap ORAL SCH ×2 (09:40→13:00)
[2018-01-23] MEDS: Lisinopril 20mg tab ORAL SCH (09:40)
[2018-01-23] MEDS: Lactulose 20gm/30ml UDC ORAL SCH ×2 (09:41→13:00)
--- NOTE | 2018-01-23 10:49 | GI Progress Note ---
Assessment/Plan Problems: (1) Anemia ICD Codes: D64.9 - Anemia, unspecified SNOMED: 669109410 (2) Diabetes ICD Codes: E11.9 - Type 2 diabetes mellitus without complications SNOMED: 20493297 (3) Fecal impaction ICD Codes: K56.41 - Fecal impaction SNOMED: 42267569 (4) Cerebrovascular accident with involvement of left side of body ICD Codes: I63.9 - Cerebral infarction, unspecified SNOMED: 526599207 (5) Vomiting ICD Codes: R11.10 - Vomiting, unspecified SNOMED: 663830879 (6) Abdominal pain ICD Codes: R10.9 - Unspecified abdominal pain SNOMED: 08802420 (7) Constipation ICD Codes: K59.00 - Constipation, unspecified SNOMED: 18744180 Status: stable Status Narrative Discussed with Dr. Albert. Assessment/Plan abdominal pain resolved patient had BM on meds anemia work up bowel regimen fu labs per patient she has had recent EGD and colonoscopy and does not want one now okay for DC per GI standpoint The patient was seen and examined at bedside and all new and available data was reviewed in the patients chart. I agree with the above findings, impression and plan. (Patient seen earlier today. Signature stamp does not reflect patient encounter time.). - Luiz Albert MD Subjective Gastrointestinal/Abdominal: Reports: no symptoms Objective Last 24 Hour Vital Signs Date Time Temp Pulse Resp B/P (MAP) Pulse Ox O2 Delivery O2 Flow Rate FiO2 01/23/18 09:40 126/67 01/23/18 04:00 98.6 72 17 108/57 (74) 99 98.6 01/23/18 00:00 96.3 60 18 97/57 (70) 100 96.3 01/22/18 21:00 Room Air 01/22/18 20:00 98.2 68 18 134/71 (92) 99 98.2 01/22/18 16:00 98.6 81 18 129/78 (95) 98 98.6 01/22/18 13:22 97.6 01/22/18 12:00 97.6 75 17 126/69 (88) 98 97.6 Intake and Output 01/22/18 01/23/18 19:00 07:00 Intake Total 400 ml 360 ml Balance 400 ml 360 ml Intake Oral 360 ml Other 400 ml # Voids 3 3 Height (Feet): 5 Height (Inches): 3.00 Weight (Pounds): 112 General Appearance: WD/WN, no apparent distress, alert Cardiovascular: normal rate Respiratory/Chest: normal breath sounds, no respiratory distress Abdominal Exam: normal bowel sounds, non tender, soft Extremities: non-tender Margarita Santiago NP Jan 23, 2018 10:49
--- NOTE | 2018-01-23 11:22 | General Progress Note ---
Assessment/Plan Problem List: (1) Urinary tract infection ICD Codes: N39.0 - Urinary tract infection, site not specified SNOMED: 09019621 (2) Osteoarthritis of right knee ICD Codes: M17.9 - Osteoarthritis of knee, unspecified SNOMED: 400013045 (3) Anemia ICD Codes: D64.9 - Anemia, unspecified SNOMED: 605841495 (4) Diabetes ICD Codes: E11.9 - Type 2 diabetes mellitus without complications SNOMED: 33717688 (5) Fecal impaction ICD Codes: K56.41 - Fecal impaction SNOMED: 80658001 (6) Constipation ICD Codes: K59.00 - Constipation, unspecified SNOMED: 79237866 (7) Abdominal pain ICD Codes: R10.9 - Unspecified abdominal pain SNOMED: 79029605 (8) Cerebrovascular accident with involvement of left side of body ICD Codes: I63.9 - Cerebral infarction, unspecified SNOMED: 455275282 Status: stable, progressing Assessment/Plan ot pt diet ivf abx laxitives prn dc if clear Subjective Constitutional: Reports: weakness Allergies: Coded Allergies: NO KNOWN ALLERGIES (Unverified Allergy, Unknown, 04/30/15) All Systems: reviewed and negative except above Subjective had bm calm Objective Last 24 Hour Vital Signs Date Time Temp Pulse Resp B/P (MAP) Pulse Ox O2 Delivery O2 Flow Rate FiO2 01/23/18 09:40 126/67 01/23/18 09:00 Room Air 01/23/18 08:00 98.4 68 18 126/67 (86) 98 98.4 01/23/18 04:00 98.6 72 17 108/57 (74) 99 98.6 01/23/18 00:00 96.3 60 18 97/57 (70) 100 96.3 01/22/18 21:00 Room Air 01/22/18 20:00 98.2 68 18 134/71 (92) 99 98.2 01/22/18 16:00 98.6 81 18 129/78 (95) 98 98.6 01/22/18 13:22 97.6 01/22/18 12:00 97.6 75 17 126/69 (88) 98 97.6 Intake and Output 01/22/18 01/23/18 19:00 07:00 Intake Total 400 ml 360 ml Balance 400 ml 360 ml Intake Oral 360 ml Other 400 ml # Voids 3 3 Height (Feet): 5 Height (Inches): 3.00 Weight (Pounds): 112 General Appearance: alert EENT: normal ENT inspection Neck: normal alignment Cardiovascular: normal peripheral pulses, normal rate, regular rhythm Respiratory/Chest: chest wall non-tender, lungs clear, normal breath sounds Abdomen: normal bowel sounds, non tender, soft Extremities: normal inspection Edema: no edema noted Arm (L), no edema noted Arm (R), no edema noted Leg (L), no edema noted Leg (R), no edema noted Pedal (L), no edema noted Pedal (R), no edema noted Generalized Neurologic: responsive, motor weakness Skin: normal pigmentation, warm/dry Olegario Dunaway DO Jan 23, 2018 11:22
[2018-01-23 12:00] VITALS: BP 127/82
--- NOTE | 2018-01-23 12:27 | General Surgery Progress Note ---
General Surgery-Progress Note Subjective Additional Comments abdominal pain improved. no n/v/f/c. Objective Last 24 Hour Vital Signs Date Time Temp Pulse Resp B/P (MAP) Pulse Ox O2 Delivery O2 Flow Rate FiO2 01/23/18 09:40 126/67 01/23/18 09:00 Room Air 01/23/18 08:00 98.4 68 18 126/67 (86) 98 98.4 01/23/18 04:00 98.6 72 17 108/57 (74) 99 98.6 01/23/18 00:00 96.3 60 18 97/57 (70) 100 96.3 01/22/18 21:00 Room Air 01/22/18 20:00 98.2 68 18 134/71 (92) 99 98.2 01/22/18 16:00 98.6 81 18 129/78 (95) 98 98.6 01/22/18 13:22 97.6 I&O Intake and Output 01/22/18 01/23/18 19:00 07:00 Intake Total 400 ml 360 ml Balance 400 ml 360 ml Intake Oral 360 ml Other 400 ml # Voids 3 3 Dressing: dry, other Wound: clean, dry, other Drains: other Cardiovascular: RSR Respiratory: clear Abdomen: soft, flat, non-tender, present bowel sounds Extremities: other Plan Problems: (1) Sacral decubitus ulcer, stage III Assessment & Plan: small area of skin breakdown 1cm x 1cm on sacral region related to pressure. partial thickness stage III almost about to become full thickness. no drainage. no erythema. no edema. no odor. remaining area with chronic skin changes. seems to have had pressure partial thickness ulcer before in healing state now. turn q2h pressure release apply foam protective dressing thank you (2) Abdominal pain Assessment & Plan: likely constipation. resolving had scopes recently and not interested in them again pain resolved. bowel regimen diet as tolerated okay to d/c from surgical standpoint Feliz Paez Jan 23, 2018 12:27
--- NOTE | 2018-01-23 12:53 | Consultation ---
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 patient found to have stool impaction. Denied f/c, CP upon admission. ID consulted for concern for UTI. Afebrile no leukocytosis Allergies: Coded Allergies: NO KNOWN ALLERGIES (Unverified Allergy, Unknown, 04/30/15) Medication History Scheduled Ascorbic Acid* (Vitamin C*), 250 MG ORAL DAILY, (Reported) Aspirin* (Aspirin*), 81 MG ORAL DAILY, (Reported) Atorvastatin Calcium* (Lipitor*), 10 MG ORAL BEDTIME, (Reported) Clonidine Hcl (Clonidine Hcl), 0.1 MG PO Q6HR, (Reported) Docusate Sodium* (Docusate Sodium*), 100 MG ORAL THREE TIMES A DAY, (Reported) Lactulose (Lactulose*), 30 ML ORAL TID, (Reported) Levothyroxine Sodium (Levothyroxine Sodium), 50 MCG ORAL DAILY, (Reported) Levothyroxine Sodium* (Levothyroxine Sodium*), 50 MCG ORAL DAILY 0630, (Reported ) Lisinopril (Lisinopril*), 20 MG ORAL DAILY, (Reported) Mupirocin* (Mupirocin*), 1 APPLIC TOPIC BID, (Reported) Sennosides* (Sennosides*), 8.6 MG ORAL DAILY, (Reported) Temazepam (Temazepam), 15 MG PO QHS, (Reported) Valsartan/Hydrochlorothiazide 160-25MG (Diovan Hct 160-25 Mg Tablet), 1 TAB ORAL DAILY, (Reported) Scheduled PRN Hydrocodone Bit/Acetaminophen 5-325* (Pickens 5-325*), 1 TAB ORAL Q6H PRN for For Pain, (Reported) Polyethylene Glycol 3350* (Polyethylene Glycol 3350*), 17 GM ORAL BEDTIME PRN for Constipation, (Reported) Miscellaneous Medications Brimonidine Tartrate (Alphagan P), 5 ML OP, (Reported) Calcium Carbonate (Calcium Carbonate), 650 MG GT, (Reported) Ibuprofen (Ibuprofen), 600 MG PO, (Reported) Menthol (Bengay), 113 GM TP, (Reported) Discontinued Medications Baclofen* (Baclofen*), 10 MG ORAL THREE TIMES A DAY, (Reported) Discontinued Reason: Pt stopped taking med Bisacodyl* (Dulcolax*), 10 MG ORAL DAILY, (Reported) Discontinued Reason: Pt stopped taking med Chlorhexidine Gluconate (Chlorhexidine Gluconate), 15 ML MM, (Reported) Discontinued Reason: MD discontinued med Chlorhexidine Gluconate* (Hibiclens*), 118 ML TP, (Reported) Discontinued Reason: MD discontinued med Dextromethorphan Polistirex (Delsym), 30 MG PO Q6HR, (Reported) Discontinued Reason: Pt stopped taking med Docusate Sodium* (Docusate Sodium*), 250 MG ORAL TWICE A DAY, (Reported) Discontinued Reason: Pt stopped taking med Guaifenesin (Bela-Tussin), 100 MG PO Q6HR, (Reported) Discontinued Reason: Pt stopped taking med Heparin Sod (Porcine) (Heparin Sodium*), 5,000 UNITS SUBQ DAILY, (Reported) Discontinued Reason: Pt stopped taking med Hydrocodone Bit/Acetaminophen 5-325* (Pick[place] 5-325*), 1 TAB ORAL Q6H PRN for For Pain, (Reported) Discontinued Reason: Pt stopped taking med Ibuprofen* (Motrin Ib*), 600 MG ORAL Q8HR PRN for Pain Scale (3-5), (Reported) Discontinued Reason: Pt stopped taking med Ipratropium/Albuterol Sulfate (DuoNeb 0.5-3(2.5)mg/3ml), 3 ML HHN Q4HR, ( Reported) Discontinued Reason: Pt stopped taking med Levothyroxine Sodium* (Levothyroxine Sodium*), 50 MCG ORAL DAILY, (Reported) Discontinued Reason: Pt stopped taking med Lisinopril (Lisinopril*), 20 MG ORAL DAILY Discontinued Reason: MD discontinued med Magnesium Citrate (Magnesium Citrate), 296 ML PO DAILY PRN for Constipation, ( Reported) Discontinued Reason: Pt stopped taking med Magnesium Hydroxide* (Milk Of Magnesia*), 30 ML ORAL DAILY, (Reported) Discontinued Reason: Pt stopped taking med Multivitamin (Multi Vitamin Daily), 1 TAB ORAL DAILY, (Reported) Discontinued Reason: Pt stopped taking med Na Phos,M-B/Na Phos,Di-Ba* (Fleet Enema*), 118 ML RECTAL DAILY, (Reported) Discontinued Reason: Pt stopped taking med Omeprazole Magnesium (Omeprazole Magnesium), 20 MG PO DAILY, (Reported) Discontinued Reason: Pt stopped taking med Temazepam* (Restoril*), 15 MG ORAL BEDTIME PRN for Insomnia, (Reported) Discontinued Reason: Pt stopped taking med Travoprost (Travatan Z), 5 ML OP, (Reported) Discontinued Reason: Pt stopped taking med Trimethoprim/Sulfamethoxazole (Bactrim Ds Tablet), 1 EA ORAL TWICE A DAY Discontinued Reason: MD discontinued med Patient History Healthcare decision maker ÁLVARO MARTIN Resuscitation status Advanced Directive on File No Patient History Narrative Pmhx: as above Shx: Denies: smoking, alcohol use, drug use Fhx: non contributory Review of Systems All Other Systems: negative except mentioned in HPI Physical Exam Physical Exam Narrative GENERAL: Slightly anxious in bed, oriented x3, in no acute distress. CARDIOVASCULAR: No murmur. LUNGS: Distant and clear. ABDOMEN: Bowel sounds positive. Distant. Soft. No guarding. No rigidity. No rebound. EXTREMITIES: No cyanosis or edema. NEUROLOGIC: The patient moves all extremities, but left-sided weakness more so than the right. Last 24 Hour Vital Signs Date Time Temp Pulse Resp B/P (MAP) Pulse Ox O2 Delivery O2 Flow Rate FiO2 01/23/18 09:40 126/67 01/23/18 09:00 Room Air 01/23/18 08:00 98.4 68 18 126/67 (86) 98 98.4 01/23/18 04:00 98.6 72 17 108/57 (74) 99 98.6 01/23/18 00:00 96.3 60 18 97/57 (70) 100 96.3 01/22/18 21:00 Room Air 01/22/18 20:00 98.2 68 18 134/71 (92) 99 98.2 01/22/18 16:00 98.6 81 18 129/78 (95) 98 98.6 01/22/18 13:22 97.6 Intake and Output 01/22/18 01/23/18 19:00 07:00 Intake Total 400 ml 360 ml Balance 400 ml 360 ml Intake Oral 360 ml Other 400 ml # Voids 3 3 Height (Feet): 5 Height (Inches): 3.00 Weight (Pounds): 112 Medications Current Medications Medications (Trade) Dose Ordered Sig/Marilu Route PRN Reason Start Time Stop Time Status Last Admin Dose Admin Acetaminophen (Tylenol) 650 mg Q4H PRN ORAL fever 01/20/18 13:15 02/19/18 13:14 01/21/18 20:33 Al Hydroxide/Mg Hydroxide (Mylanta II) 30 ml Q6H PRN ORAL dyspepsia 01/20/18 13:15 02/19/18 13:14 Aspirin (ASA) 81 mg DAILY ORAL 01/21/18 09:00 02/20/18 08:59 01/23/18 09:39 Clonidine HCl (Catapres Tab) 0.1 mg Q6H PRN ORAL sbp more than 160 01/20/18 13:15 02/19/18 13:14 Dextrose (Dextrose 50%) 25 ml Q30M PRN IV Hypoglycemia 01/20/18 13:30 02/19/18 13:18 Dextrose (Dextrose 50%) 50 ml Q30M PRN IV hypoglycemia 01/20/18 13:30 02/19/18 13:29 Docusate Sodium (Colace) 100 mg TID ORAL 01/20/18 18:00 02/19/18 17:59 01/23/18 09:40 Iopamidol (Isovue-300 100ml) 100 ml NOW PRN INJ Radiology Procedure 01/20/18 11:45 Lactulose (Cephulac) 30 gm THREE TIMES A DAY ORAL 01/20/18 18:00 02/19/18 17:59 01/23/18 09:41 Levothyroxine Sodium (Synthroid) 50 mcg DAILY@0630 ORAL 01/21/18 06:30 02/20/18 06:29 01/23/18 05:25 Lisinopril (Prinivil) 20 mg DAILY ORAL 01/21/18 09:00 02/20/18 08:59 01/23/18 09:40 Lorazepam (Ativan 2mg/ml 1ml) 0.5 mg Q4H PRN IV For Anxiety 01/20/18 13:15 01/27/18 13:14 01/20/18 13:49 Mineral Oil (Fleet's Mineral Oil Enema) 133 ml Q4H PRN RECTAL CONSTIPATION 01/20/18 14:02 02/19/18 13:59 01/23/18 05:03 Morphine Sulfate (Morphine Sulfate) 1 mg Q4H PRN IVP For Pain 01/20/18 13:15 01/27/18 13:14 01/22/18 12:52 Mupirocin (Bactroban Oint) 1 applic BID TOPIC 01/22/18 10:00 01/28/18 18:01 01/23/18 09:00 Ondansetron HCl (Zofran) 4 mg Q6H PRN IVP Nausea & Vomiting 01/20/18 13:15 02/19/18 13:14 Polyethylene Glycol (Miralax) 17 gm BEDTIME ORAL 01/20/18 21:00 02/19/18 20:59 Polyethylene Glycol (Miralax) 17 gm HSPRN PRN ORAL Constipation 01/20/18 13:15 02/19/18 13:14 01/23/18 05:25 Sennosides (Senokot) 1 tab DAILY ORAL 01/21/18 09:20 02/20/18 09:19 01/23/18 09:39 Zolpidem Tartrate (Ambien) 5 mg HSPRN PRN ORAL Insomnia 01/20/18 13:15 01/27/18 13:14 01/22/18 20:42 Assessment/Plan Assessment/Plan Abx: None Assessment: Abd pain 2ry to stool impaction- no evidence of UTI -u/a no pyuria -CT abd/p: No definite acute process. There is mild nonspecific fluid in the ascending colon and slight distention of the rectum by gas and stool. Surgically absent gallbladder. Dilated extra hepatic and central intrahepatic bile ducts, could be related to age and postcholecystectomy state but are rather striking.No definite downstream obstructive lesion demonstrated, but correlation with liver function tests is recommended with consideration for MRCP if clinically indicated. Gas bubbles within the bladder. Suspect on the basis of prior instrumentation, but if no history of such could indicate infection with gas-forming organism. 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 Will continue to follow along with you. Discussed with NEELAM. Tammi Alcantara M.D. Jan 23, 2018 12:53
[2018-01-23] MEDS ORDERED: LACTULOSE20 GM/301 ORAL (13:13)
[2018-01-23] MEDS ORDERED: LEVOTHYROXINE75 MCG ORAL (13:15)
[2018-01-23] MEDS ORDERED: DOCUSATE SODIU100 MG ORAL (13:16)
[2018-01-23] MEDS ORDERED: LISINOPRIL20 MG ORAL (13:18)
[2018-01-23] MEDS ORDERED: POLYETHYLENE GL17 GM ORAL (13:21)
[2018-01-23] MEDS ORDERED: MUPIROCIN22 GM TOPIC (13:21)
[2018-01-23] MEDS ORDERED: SENNOSIDES8.6 MG ORAL (13:22)
--- NOTE | 2018-01-23 13:27 | Pulmonology Progress Note ---
Assessment/Plan Problems: (1) Urinary tract infection (2) Diabetes (3) Pain of left side of body (4) Osteoarthritis of left knee (5) Cerebrovascular accident with involvement of left side of body (6) Family history of CVA Assessment/Plan improving continue current treatment check electrolytes symptomatic treatment dvt prophylaxis. Subjective ROS Limited/Unobtainable: No Constitutional: Reports: no symptoms HEENT: Repors: no symptoms Allergies: Coded Allergies: NO KNOWN ALLERGIES (Unverified Allergy, Unknown, 04/30/15) Objective Last 24 Hour Vital Signs Date Time Temp Pulse Resp B/P (MAP) Pulse Ox O2 Delivery O2 Flow Rate FiO2 01/23/18 09:40 126/67 01/23/18 09:00 Room Air 01/23/18 08:00 98.4 68 18 126/67 (86) 98 98.4 01/23/18 04:00 98.6 72 17 108/57 (74) 99 98.6 01/23/18 00:00 96.3 60 18 97/57 (70) 100 96.3 01/22/18 21:00 Room Air 01/22/18 20:00 98.2 68 18 134/71 (92) 99 98.2 01/22/18 16:00 98.6 81 18 129/78 (95) 98 98.6 Intake and Output 01/22/18 01/23/18 19:00 07:00 Intake Total 400 ml 360 ml Balance 400 ml 360 ml Intake Oral 360 ml Other 400 ml # Voids 3 3 General Appearance: WD/WN HEENT: normocephalic, atraumatic Respiratory/Chest: chest wall non-tender, normal breath sounds Cardiovascular: normal peripheral pulses, normal rate Abdomen: normal bowel sounds, non distended Genitourinary: normal external genitalia Skin: no rash Neurologic/Psychiatric: rn trauma II-XII grossly normal Lymphatic: no neck adenopathy Microbiology Date/Time Source Procedure Growth Status 01/20/18 14:00 Nasal Nares MRSA Culture - Final Staphylococcus Aureus - Mrsa Complete 01/20/18 14:00 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 - Vre Complete Current Medications Medications (Trade) Dose Ordered Sig/Marilu Route PRN Reason Start Time Stop Time Status Last Admin Dose Admin Acetaminophen (Tylenol) 650 mg Q4H PRN ORAL fever 01/20/18 13:15 02/19/18 13:14 01/21/18 20:33 Al Hydroxide/Mg Hydroxide (Mylanta II) 30 ml Q6H PRN ORAL dyspepsia 01/20/18 13:15 02/19/18 13:14 Aspirin (ASA) 81 mg DAILY ORAL 01/21/18 09:00 02/20/18 08:59 01/23/18 09:39 Clonidine HCl (Catapres Tab) 0.1 mg Q6H PRN ORAL sbp more than 160 01/20/18 13:15 02/19/18 13:14 Dextrose (Dextrose 50%) 25 ml Q30M PRN IV Hypoglycemia 01/20/18 13:30 02/19/18 13:18 Dextrose (Dextrose 50%) 50 ml Q30M PRN IV hypoglycemia 01/20/18 13:30 02/19/18 13:29 Docusate Sodium (Colace) 100 mg TID ORAL 01/20/18 18:00 02/19/18 17:59 01/23/18 09:40 Iopamidol (Isovue-300 100ml) 100 ml NOW PRN INJ Radiology Procedure 01/20/18 11:45 Lactulose (Cephulac) 30 gm THREE TIMES A DAY ORAL 01/20/18 18:00 02/19/18 17:59 01/23/18 09:41 Levothyroxine Sodium (Synthroid) 50 mcg DAILY@0630 ORAL 01/21/18 06:30 02/20/18 06:29 01/23/18 05:25 Lisinopril (Prinivil) 20 mg DAILY ORAL 01/21/18 09:00 02/20/18 08:59 01/23/18 09:40 Lorazepam (Ativan 2mg/ml 1ml) 0.5 mg Q4H PRN IV For Anxiety 01/20/18 13:15 01/27/18 13:14 01/20/18 13:49 Mineral Oil (Fleet's Mineral Oil Enema) 133 ml Q4H PRN RECTAL CONSTIPATION 01/20/18 14:02 02/19/18 13:59 01/23/18 05:03 Morphine Sulfate (Morphine Sulfate) 1 mg Q4H PRN IVP For Pain 01/20/18 13:15 01/27/18 13:14 01/22/18 12:52 Mupirocin (Bactroban Oint) 1 applic BID TOPIC 01/22/18 10:00 01/28/18 18:01 01/23/18 09:00 Ondansetron HCl (Zofran) 4 mg Q6H PRN IVP Nausea & Vomiting 01/20/18 13:15 02/19/18 13:14 Polyethylene Glycol (Miralax) 17 gm BEDTIME ORAL 01/20/18 21:00 02/19/18 20:59 Polyethylene Glycol (Miralax) 17 gm HSPRN PRN ORAL Constipation 01/20/18 13:15 02/19/18 13:14 01/23/18 05:25 Sennosides (Senokot) 1 tab DAILY ORAL 01/21/18 09:20 02/20/18 09:19 01/23/18 09:39 Zolpidem Tartrate (Ambien) 5 mg HSPRN PRN ORAL Insomnia 01/20/18 13:15 01/27/18 13:14 01/22/18 20:42 Amira Lawler MD Jan 23, 2018 13:27
--- NOTE | 2018-01-24 12:36 | Discharge Summary ---
Discharge Summary Discharge Summary _ DATE OF ADMISSION: 01/20/2018 DATE OF DISCHARGE: 01/23/2018 REASON FOR ADMISSION: 71 years old female, resident of longterm facility, with past medical history of hypertension, CVA with left-sided weakness, hyperlipidemia, osteoarthritis, GERD, sacral decubitus stage III present on admission, was sent from the longterm [facility] for evaluation of abdominal pain for 5 days. Patient reported that she gets frequent constipation and had medication to" help her go." Patient had bowel movement, but pain was persistent ,sharp, nonradiating ,9 out of 10 on a scale 1-10. She noted nausea and vomiting , no fever ,no chills . She denied chest pain or shortness of breath . Upon evaluation vital signs were stable. Laboratory workup revealed no leukocytosis,hemoglobin 11.2 ,hematocrit 36.2 . Urinalysis showed no evidence of UTI. Stable electrolytes. BUN 25 creatinine 1.3. Glucose 102. LFT and lipase within normal limits. CT of the abdomen and pelvis revealed no definite acute process. Noted mild nonspecific fluid in the ascending colon and slight distention of the rectum by gas and stool. Patient admitted with diagnoses of abdominal pain, constipation, fecal impaction , history of CVA with left-sided weakness, anemia. CONSULTANTS: pulmonary Dr. Lawler ID specialist Dr. London GI specialist Dr. Albert surgery Dr. Paez [facility] COURSE: Patient admitted and started on IV fluids. GI specialist closely followed. Patient started to have bowel movements. Antiemetics provided as needed Diet slowly resumed and advanced as tolerated. Patient was able to tolerate diet. Patient was continued on vigorous bowel regimen. Pain management was addressed, and pain was controlled. DVT and GI prophylaxis provided. Patient stated that she had recent GI procedures, and declined endoscopy/ colonoscopy. Hemoglobin and hematocrit were closely monitored with goal to keep hemoglobin above 7. Anemia workup was consistent with anemia of chronic disease. CEA was within normal limits. Stool for occult blood was not collected. Lipid panel was stable. Antiplatelet therapy with aspirin was continued. TSH was within normal limits. Current dose of Synthroid was continued. Blood pressure was managed with the HERMES inhibitor and remained stable. Dietary recommendations implemented in plan of care to improve nutritional status. Supportive care provided. Wound care provided as per surgery recommendation. Infectious disease doctor seen and evaluated patient. Abdominal pain was secondary to stool impaction, no evidence of urinary tract infection. Urinalysis did not show pyuria. CT of the abdomen and pelvis revealed no definite acute process. Infectious disease doctor recommended to keep patient off antibiotic and observe closely. Patient stabilized , able to tolerate diet, had regular bowel movement ,afebrile, no leukocytosis. Patient was ready for return back to longterm facility for continuation of care. FINAL DIAGNOSES: Abdominal pain , secondary to constipation and fecal impaction Constipation Fecal impaction Hypertension Anemia History of CVA with left-sided weakness Hypothyroidism GERD Protein calorie malnutrition Sacral decubitus stage III ,present on admission DISCHARGE MEDICATIONS: See Medication Reconciliation list. DISCHARGE INSTRUCTIONS: Patient was discharged to the longterm facility. Follow up with medical doctor at the facility. I have been assigned to dictate discharge summary for this account. I was not involved in the patient's management. Areli Mendoza NP Jan 24, 2018 12:36
== END 2018-01-23 15:14 | DRG 388 ==
LOC: EDBD 11:02 → EMR 11:25 → EDBEDREQ 13:41 → 4E 13:43 → EDBEDREQ 14:13 → 4E 18:39
DX: K56.41 Fecal impaction (principal); L89.153 Pressure ulcer of sacral region, stage 3; N39.0 Urinary tract infection, site not specified; I69.354 Hemiplegia and hemiparesis following cerebral infarction affecting left non-dominant side; E46 Unspecified protein-calorie malnutrition; R10.9 Unspecified abdominal pain; I10 Essential (primary) hypertension; D64.9 Anemia, unspecified; E03.9 Hypothyroidism, unspecified; K21.9 Gastro-esophageal reflux disease without esophagitis; E11.9 Type 2 diabetes mellitus without complications; M17.11 Unilateral primary osteoarthritis, right knee
CPT/HCPCS: 36415; 74177; 80048; 80053; 80061; 81003; 82378; 82607; 82728; 82746; 83540; 83550; 83690; 84439; 84443; 85025; 85044; 85610; 85730; 87081; 96360; 96374; 96375; 97803; 99284; 99285; J2405

== ENCOUNTER 2018-05-03 11:06 | Inpatient (IN) | payer MEDICARE, MEDICAID ==
[~2018-05-03] VITALS: Ht 162.6 cm; Wt 49.9 kg
[~2018-05-03 11:06] MED LIST changes: +ALPHAGAN P5 M2 OP; +ATORVASTATIN CA10 MG ORAL; +BENGAY113 GM TP; +CALCIUM CARBON650 M3 GT; +CLONIDINE HCL0.1 MG PO; +DIOVAN HCT 1601 EAC1 ORAL; +DOCUSATE SODIU100 MG ORAL; +IBUPROFEN100 M1 PO; +LACTULOSE20 GM/301 ORAL; +LEVOTHYROXINE175 MCG ORAL; +LEVOTHYROXINE75 MCG ORAL; +MUPIROCIN22 GM TOPIC; +POLYETHYLENE GL17 GM ORAL; +SENNOSIDES8.6 MG ORAL; +TEMAZEPAM22.5 MG PO; +VITAMIN C250 MG ORAL
[2018-05-03 11:10] VITALS: BP 122/70
[2018-05-03] MEDS ORDERED: Morphine Sulfate 2mg/ml Inj IVP ONE (11:30)
[2018-05-03] MEDS ORDERED: cefTRIAXone 1 GM in NS 55 ML IVPB ONE (11:30)
[2018-05-03] MEDS ORDERED: Miralax 17gm pkt ORAL PRN (12:30)
[2018-05-03] MEDS ORDERED: Albuterol/Ipratropium 3ml neb HHN PRN (12:30)
[2018-05-03] MEDS ORDERED: CELEXA20 MG ORAL (12:31)
[2018-05-03] MEDS ORDERED: ALBUTEROL2.5 MG/3 M INH (12:31)
[2018-05-03] MEDS ORDERED: IBUPROFEN600 MG ORAL (12:31)
[2018-05-03] MEDS ORDERED: TUBERSOL5 TUB UNIT ID (12:37)
[2018-05-03] MEDS ORDERED: CRANBERRY450 M4 PO (12:37)
[2018-05-03] MEDS ORDERED: VITAMIN D400 INTLU ORAL (12:37)
[2018-05-03] MEDS ORDERED: VITAMIN C500 M1 ORAL (12:37)
[2018-05-03] MEDS ORDERED: TYLENOL325 MG ORAL (12:37)
[2018-05-03 12:38] LABS: BASOPHILS % (AUTO) 1.1 % (0.0-2.0); EOSINOPHILS % (AUTO) 0.9 % (0.0-3.0); HEMATOCRIT 36.2 % (37.0-47.0); HEMOGLOBIN 11.3 G/DL (12.0-16.0); LYMPHOCYTES % (AUTO) 26.3 % (20.0-45.0); MEAN CORPUSCULAR VOLUME 92 FL (80-99); NEUTROPHILS % (AUTO) 64.8 % (45.0-75.0); PLATELET COUNT 257 K/UL (150-450); RED BLOOD COUNT 3.93 M/UL (4.20-5.40); RED CELL DISTRIBUTION WIDTH 11.6 % (11.6-14.8); WHITE BLOOD COUNT 6.9 K/UL (4.8-10.8)
[2018-05-03] MEDS ORDERED: NORCO 5-325 TA1 EACH ORAL (12:39)
[2018-05-03 12:45] LABS: ANION GAP 9 mmol/L (5-15); BLOOD UREA NITROGEN 30 mg/dL (7-18); CALCIUM 9.8 MG/DL (8.5-10.1); CARBON DIOXIDE 28 MMOL/L (21-32); CHLORIDE 101 MMOL/L (98-107); CREATININE 1.1 MG/DL (0.55-1.30); POTASSIUM 4.6 MMOL/L (3.5-5.1); SODIUM 138 MMOL/L (136-145)
[2018-05-03 12:56] LABS: ALANINE AMINOTRANSFERASE 17 U/L (12-78); ALBUMIN 3.5 G/DL (3.4-5.0); ALBUMIN/GLOBULIN RATIO 0.8 (1.0-2.7); ALKALINE PHOSPHATASE 88 U/L (46-116); ASPARTATE AMINO TRANSFERASE 27 U/L (15-37); BILIRUBIN,TOTAL 0.6 MG/DL (0.2-1.0); CKMB 1.7 NG/ML (0.0-3.6); CREATINE KINASE 151 U/L (26-308)
[2018-05-03] MEDS: Docusate 100mg cap ORAL SCH ×2 (13:00→17:05)
--- NOTE | 2018-05-03 13:06 | GI Initial Consult Note ---
History of Present Illness General Date patient seen: May 03, 2018 Time patient seen: 12:57 Reason for Hospitalization: Altered Mental Status Referring physician: MAX YOUNG Reason for Consultation: CHRONIC CONSTIPATION Present Illness HPI 72-year-old female with history of CVA and left-sided hemiparesis presents today with generalized weakness. The patient was seen, with her by the bedside complaint of shortness of breath and excessive mucus production, states she has pneumonia. The patient was last admitted here in [place] back in December 2017 for severe constipation versus fecal impaction. Patient currently denies any abdominal pain, denies any nausea or vomiting or diarrhea. Chest x-ray taken, final read pending. Patient states that she has both an endoscopic colonoscopy performed last year noted with unremarkable results. Home Meds Reported Medications Acetaminophen (Tylenol) 325 Mg Tablet, 325 MG ORAL, #30 TAB 0 Refills 05/03/18 Ascorbic Acid* (VITAMIN C*) 500 Mg Tablet, 500 MG ORAL, #30 TAB 0 Refills 05/03/18 Cranberry Fruit Concentrate (CRANBERRY) 450 Mg Capsule, 450 MG PO, CAP 05/03/18 Vitamin D (Vitamin D3) 400 Unit Tablet, 5000 UNITS ORAL, TAB 05/03/18 Tuberculin,Purif.prot.deriv. (TUBERSOL) 5 Tub Unit/0.1 Ml Vial, 0.1 ML ID, VIAL 05/03/18 Citalopram Hydrobromide* (CELEXA*) 20 Mg Tablet, 20 MG ORAL DAILY, TAB 05/03/18 Albuterol Sulfate* (ALBUTEROL SULFATE HHN*) 2.5 Mg/3 Ml Vial.neb, 3 ML INH Q4H PRN for Shortness of Breath, EA 05/03/18 Sennosides* (SENNOSIDES*) 8.6 Mg Tablet, 8.6 MG ORAL DAILY, TAB 01/23/18 Polyethylene Glycol 3350* (POLYETHYLENE GLYCOL 3350*) 17 Gm Powd.pack, 17 GM ORAL BEDTIME PRN for Constipation, PACKET 01/23/18 Mupirocin* (MUPIROCIN*) 22 Gm Oint...g., 1 APPLIC TOPIC BID, GM 01/23/18 Lisinopril (LISINOPRIL*) 20 Mg Tablet, 20 MG ORAL DAILY, TAB 01/23/18 Docusate Sodium* (DOCUSATE SODIUM*) 100 Mg Capsule, 100 MG ORAL THREE TIMES A DAY, CAP 01/23/18 Levothyroxine Sodium* (LEVOTHYROXINE SODIUM*) 75 Mcg Tablet, 50 MCG ORAL DAILY 0630, TAB Take in the morning on an empty stomach, at least 30 minutes before food. 01/23/18 Lactulose (LACTULOSE*) 20 Gm/30 Ml Solution, 30 ML ORAL TID, ML 0 Refills 01/23/18 Valsartan/Hydrochlorothiazide 160-25MG (DIOVAN HCT 160-25 MG TABLET) 1 Each Tablet, 1 TAB ORAL DAILY, TAB 01/20/18 Temazepam (TEMAZEPAM) 22.5 Mg Capsule, 15 MG PO QHS, CAP 01/20/18 Hydrocodone Bit/Acetaminophen 5-325* (NORCO 5-325*) 1 Each Tablet, 1 TAB ORAL Q6H PRN for For Pain, #10 TAB 0 Refills 01/20/18 Levothyroxine Sodium (LEVOTHYROXINE SODIUM) 175 Mcg Tablet, 50 MCG ORAL DAILY, TAB Take in the morning on an empty stomach, at least 30 minutes before food. 01/20/18 Ibuprofen (IBUPROFEN) 100 Mg Tab.chew, 600 MG PO, TAB 01/20/18 Clonidine Hcl (CLONIDINE HCL) 0.1 Mg Tablet, 0.1 MG PO Q6HR, TAB 01/20/18 Calcium Carbonate (Calcium Carbonate) 260 Mg Tablet, 650 MG GT, TAB 01/20/18 Menthol (BENGAY) 113 Gm Gel..gram., 113 GM TP, GM 01/20/18 Brimonidine Tartrate (ALPHAGAN P) 5 Ml Drops, 5 ML OP, ML 01/20/18 Atorvastatin Calcium* (LIPITOR*) 10 Mg Tablet, 10 MG ORAL BEDTIME, TAB 01/20/18 Aspirin* (ASPIRIN*) 81 Mg Tab.chew, 81 MG ORAL DAILY, TAB 04/30/15 Discontinued Reported Medications Hydrocodone Bit/Acetaminophen 5-325* ([place] 5-325*) 1 Each Tablet, 1 TAB ORAL, TAB 0 Refills 05/03/18 Ibuprofen* (MOTRIN*) 600 Mg Tablet, 600 MG ORAL, #30 TAB 0 Refills 05/03/18 Ascorbic Acid* (VITAMIN C*) 250 Mg Tablet, 250 MG ORAL DAILY, #30 TAB 0 Refills 01/20/18 Med list reviewed/reconciled: Yes Allergies: Coded Allergies: NO KNOWN ALLERGIES (Unverified Allergy, Unknown, 04/30/15) Patient History PMH Narrative PMH Narrative Past Medical History: HTN, GERD, CVA/TIA Past Surgical History: none Pertinent Family History: none Social History: Denies: smoking, alcohol use, drug use Now: No Immunizations: UTD Reviewed Nursing Documentation: PMH: Agreed; PSxH: Agreed Nursing Documentation-PMH Hx Cardiac Problems: Yes - high cholesterol Hx Hypertension: Yes Hx Diabetes: No Hx Cancer: No Hx Gastrointestinal Problems: Yes - gerd Hx Cerebrovascular Accident: Yes - 2002 L-sided Hx Paralysis: Yes - Left Side Hx Headaches: Yes Pertinent Family History: none Social History: Denies: smoking, alcohol use, drug use, other Social History: Denies: smoking, alcohol use, drug use, other Review of Systems All Other Systems: negative except mentioned in HPI Physical Exam Vital Signs Date Time Temp Pulse Resp B/P (MAP) Pulse Ox O2 Delivery O2 Flow Rate FiO2 05/03/18 11:10 78 14 Room Air 97 05/03/18 11:12 98.1 145/67 98 Sp02 EP Interpretation: reviewed, normal Labs Laboratory Tests Test 05/03/18 12:15 White Blood Count 6.9 K/UL (4.8-10.8) Red Blood Count 3.93 M/UL (4.20-5.40) L Hemoglobin 11.3 G/DL (12.0-16.0) L Hematocrit 36.2 % (37.0-47.0) L Mean Corpuscular Volume 92 FL (80-99) Mean Corpuscular Hemoglobin 28.8 PG (27.0-31.0) Mean Corpuscular Hemoglobin Concent 31.2 G/DL (32.0-36.0) L Red Cell Distribution Width 11.6 % (11.6-14.8) Platelet Count 257 K/UL (150-450) Mean Platelet Volume 6.3 FL (6.5-10.1) L Neutrophils (%) (Auto) 64.8 % (45.0-75.0) Lymphocytes (%) (Auto) 26.3 % (20.0-45.0) Monocytes (%) (Auto) 7.0 % (1.0-10.0) Eosinophils (%) (Auto) 0.9 % (0.0-3.0) Basophils (%) (Auto) 1.1 % (0.0-2.0) Sodium Level 138 MMOL/L (136-145) Potassium Level 4.6 MMOL/L (3.5-5.1) Chloride Level 101 MMOL/L (98-107) Carbon Dioxide Level 28 MMOL/L (21-32) Anion Gap 9 mmol/L (5-15) Blood Urea Nitrogen 30 mg/dL (7-18) H Creatinine 1.1 MG/DL (0.55-1.30) Estimat Glomerular Filtration Rate mL/min (>60) Glucose Level 84 MG/DL (74-106) Lactic Acid Level Pending Calcium Level 9.8 MG/DL (8.5-10.1) Total Bilirubin Pending Aspartate Amino Transf (AST/SGOT) Pending Alanine Aminotransferase (ALT/SGPT) Pending Alkaline Phosphatase Pending Total Creatine Kinase Pending Creatine Kinase MB Pending Troponin I 0.005 ng/mL (0.000-0.056) Total Protein Pending Albumin Pending Globulin Pending General Appearance: no apparent distress, thin Head: normocephalic EENT: PERRL/EOMI, normal ENT inspection Neck: supple Respiratory: normal breath sounds, no respiratory distress Cardiovascular: normal rate Gastrointestinal: normal inspection, non tender, soft, normal bowel sounds, non -distended Rectal: deferred Genitourinary: no CVA tenderness Musculoskeletal: normal inspection, back normal, tender - Left-sided weakness Neurologic: normal inspection, alert, oriented x3, responsive Psychiatric: normal inspection, judgement/insight normal, memory normal Skin: normal inspection, normal color, no rash, warm/dry, palpation normal, well hydrated Lymphatic: normal inspection, no adenopathy Current Medications Current Medications Medications (Trade) Dose Ordered Sig/Marilu Route PRN Reason Start Time Stop Time Status Last Admin Dose Admin Acetaminophen (Tylenol) 650 mg Q4H PRN ORAL T>100.5 05/03/18 12:30 06/02/18 12:29 Albuterol/ Ipratropium (Albuterol/ Ipratropium) 3 ml Q4H PRN HHN Shortness of Breath 05/03/18 12:30 05/08/18 12:29 Cefepime HCl 2 gm/ Dextrose 110 ml @ 220 mls/hr EVERY 12 HOURS IV 05/03/18 21:00 05/10/18 20:59 UNV Heparin Sodium (Porcine) (Heparin 5000 units/ml) 5,000 units EVERY 12 HOURS SUBQ 05/03/18 21:00 06/02/18 20:59 UNV Levothyroxine Sodium (Synthroid) 50 mcg DAILY@0630 ORAL 05/04/18 06:30 06/03/18 06:29 Morphine Sulfate (Morphine Sulfate) 2 mg Q4H PRN IVP Moderate Pain (Pain Scale 4-6) 05/03/18 12:30 05/10/18 12:29 Ondansetron HCl (Zofran) 4 mg Q6H PRN IVP Nausea & Vomiting 05/03/18 12:30 06/02/18 12:29 Phenazopyridine HCl (Pyridium) 100 mg DAILYPRN PRN ORAL dysuria/pain on urination 05/03/18 12:30 06/02/18 12:29 Polyethylene Glycol (Miralax) 17 gm DAILYPRN PRN ORAL Constipation 05/03/18 12:30 06/02/18 12:29 Temazepam (Restoril) 15 mg HSPRN PRN ORAL Insomnia 05/03/18 21:00 05/10/18 20:59 Vancomycin HCl 1 gm/Dextrose 275 ml @ 183.3 mls/ hr Q24H IV 05/04/18 00:30 05/09/18 00:29 UNV GI: Plan Problems: (1) Abdominal pain (2) Constipation (3) Fecal impaction (4) Anemia (5) Weight loss (6) Severe malnutrition (7) Dehydration Plan Recent history of endoscopic colonoscopy was last year, noted with unremarkable findings advance to regular diet Begin the patient on a bowel regimen given history of severe constipation Anemia workup reviewed from prior admission OB stool to rule out GI bleed PPI Follow-up chest x-ray Prophylactic antibiotics Will consider GI procedures if necessary Discussed with Dr. Albert. Thank you for this patient referral, we will follow. The patient was seen and examined at bedside and all new and available data was reviewed in the patients chart. I agree with the above findings, impression and plan. (Patient seen earlier today. Signature stamp does not reflect patient encounter time.). - MD Pamela Guerrero,[facility] CenterJustus MICHAELS May 03, 2018 13:06
--- NOTE | 2018-05-03 13:14 | Consultation ---
History of Present Illness General Date patient seen: May 03, 2018 Chief Complaint: Altered Mental Status Referring physician: MAX YOUNG Present Illness HPI 72-year-old female with hx of CVA and left sided hemiparesis, [facility]dc resident presented to ER with CC of generalized weakness and nonproductive cough. She reports having some increased burning sensation to her lower abdomen. Her CXR showed right hilar scarring. she is admitted to telemetry for further management. Allergies: Coded Allergies: NO KNOWN ALLERGIES (Unverified Allergy, Unknown, 04/30/15) Medication History Scheduled Aspirin* (Aspirin*), 81 MG ORAL DAILY, (Reported) Atorvastatin Calcium* (Lipitor*), 10 MG ORAL BEDTIME, (Reported) Citalopram Hydrobromide* (Celexa*), 20 MG ORAL DAILY, (Reported) Clonidine Hcl (Clonidine Hcl), 0.1 MG PO Q6HR, (Reported) Docusate Sodium* (Docusate Sodium*), 100 MG ORAL THREE TIMES A DAY, (Reported) Lactulose (Lactulose*), 30 ML ORAL TID, (Reported) Levothyroxine Sodium (Levothyroxine Sodium), 50 MCG ORAL DAILY, (Reported) Levothyroxine Sodium* (Levothyroxine Sodium*), 50 MCG ORAL DAILY 0630, (Reported ) Lisinopril (Lisinopril*), 20 MG ORAL DAILY, (Reported) Mupirocin* (Mupirocin*), 1 APPLIC TOPIC BID, (Reported) Sennosides* (Sennosides*), 8.6 MG ORAL DAILY, (Reported) Temazepam (Temazepam), 15 MG PO QHS, (Reported) Valsartan/Hydrochlorothiazide 160-25MG (Diovan Hct 160-25 Mg Tablet), 1 TAB ORAL DAILY, (Reported) Scheduled PRN Albuterol Sulfate* (Albuterol Sulfate Hhn*), 3 ML INH Q4H PRN for Shortness of Breath, (Reported) Hydrocodone Bit/Acetaminophen 5-325* ([place] 5-325*), 1 TAB ORAL Q6H PRN for For Pain, (Reported) Polyethylene Glycol 3350* (Polyethylene Glycol 3350*), 17 GM ORAL BEDTIME PRN for Constipation, (Reported) Miscellaneous Medications Acetaminophen (Tylenol), 325 MG ORAL, (Reported) Ascorbic Acid* (Vitamin C*), 500 MG ORAL, (Reported) Brimonidine Tartrate (Alphagan P), 5 ML OP, (Reported) Calcium Carbonate (Calcium Carbonate), 650 MG GT, (Reported) Cranberry Fruit Concentrate (Cranberry), 450 MG PO, (Reported) Ibuprofen (Ibuprofen), 600 MG PO, (Reported) Menthol (Bengay), 113 GM TP, (Reported) Tuberculin,Purif.prot.deriv. (Tubersol), 0.1 ML ID, (Reported) Vitamin D (Vitamin D3), 5,000 UNITS ORAL, (Reported) Discontinued Medications Ascorbic Acid* (Vitamin C*), 250 MG ORAL DAILY, (Reported) Discontinued Reason: Medication dose changed Hydrocodone Bit/Acetaminophen 5-325* ([place] 5-325*), 1 TAB ORAL, (Reported) Discontinued Reason: Medication dose changed Ibuprofen* (Motrin*), 600 MG ORAL, (Reported) Discontinued Reason: Medication dose changed Patient History Healthcare decision maker Resuscitation status Advanced Directive on File Past Medical/Surgical History Past Medical/Surgical History: (1) Cerebrovascular accident with involvement of left side of body (2) Thalamic pain syndrome (3) Fecal impaction (4) Constipation (5) Osteoarthritis of left knee Review of Systems All Other Systems: negative except mentioned in HPI Physical Exam General Appearance: cachetic Lines, tubes and drains: peripheral HEENT: normocephalic, atraumatic Neck: non-tender, normal alignment, supple Respiratory/Chest: chest wall non-tender, lungs clear, decreased breath sounds Breasts: no masses Cardiovascular/Chest: normal peripheral pulses Abdomen: normal bowel sounds, non tender Skin Exam: normal pigmentation Last 24 Hour Vital Signs Date Time Temp Pulse Resp B/P (MAP) Pulse Ox O2 Delivery O2 Flow Rate FiO2 05/03/18 11:12 98.1 50 18 145/67 98 Room Air 05/03/18 11:10 98.3 73 14 122/70 98 Room Air 05/03/18 11:10 78 14 Room Air 97 Laboratory Tests Test 05/03/18 12:15 White Blood Count 6.9 K/UL (4.8-10.8) Red Blood Count 3.93 M/UL (4.20-5.40) L Hemoglobin 11.3 G/DL (12.0-16.0) L Hematocrit 36.2 % (37.0-47.0) L Mean Corpuscular Volume 92 FL (80-99) Mean Corpuscular Hemoglobin 28.8 PG (27.0-31.0) Mean Corpuscular Hemoglobin Concent 31.2 G/DL (32.0-36.0) L Red Cell Distribution Width 11.6 % (11.6-14.8) Platelet Count 257 K/UL (150-450) Mean Platelet Volume 6.3 FL (6.5-10.1) L Neutrophils (%) (Auto) 64.8 % (45.0-75.0) Lymphocytes (%) (Auto) 26.3 % (20.0-45.0) Monocytes (%) (Auto) 7.0 % (1.0-10.0) Eosinophils (%) (Auto) 0.9 % (0.0-3.0) Basophils (%) (Auto) 1.1 % (0.0-2.0) Sodium Level 138 MMOL/L (136-145) Potassium Level 4.6 MMOL/L (3.5-5.1) Chloride Level 101 MMOL/L (98-107) Carbon Dioxide Level 28 MMOL/L (21-32) Anion Gap 9 mmol/L (5-15) Blood Urea Nitrogen 30 mg/dL (7-18) H Creatinine 1.1 MG/DL (0.55-1.30) Estimat Glomerular Filtration Rate mL/min (>60) Glucose Level 84 MG/DL (74-106) Lactic Acid Level 1.00 mmol/L (0.4-2.0) Calcium Level 9.8 MG/DL (8.5-10.1) Total Bilirubin 0.6 MG/DL (0.2-1.0) Aspartate Amino Transf (AST/SGOT) 27 U/L (15-37) Alanine Aminotransferase (ALT/SGPT) 17 U/L (12-78) Alkaline Phosphatase 88 U/L (46-116) Total Creatine Kinase 151 U/L (26-308) Creatine Kinase MB 1.7 NG/ML (0.0-3.6) Creatine Kinase MB Relative Index 1.1 Troponin I 0.005 ng/mL (0.000-0.056) Total Protein 8.1 G/DL (6.4-8.2) Albumin 3.5 G/DL (3.4-5.0) Globulin 4.6 g/dL Albumin/Globulin Ratio 0.8 (1.0-2.7) L Height (Feet): 5 Height (Inches): 4.00 Weight (Pounds): 110 Medications Current Medications Medications (Trade) Dose Ordered Sig/Marilu Route PRN Reason Start Time Stop Time Status Last Admin Dose Admin Acetaminophen (Tylenol) 650 mg Q4H PRN ORAL T>100.5 05/03/18 12:30 06/02/18 12:29 Albuterol/ Ipratropium (Albuterol/ Ipratropium) 3 ml Q4H PRN HHN Shortness of Breath 05/03/18 12:30 05/08/18 12:29 Cefepime HCl 2 gm/ Dextrose 110 ml @ 220 mls/hr EVERY 12 HOURS IV 05/03/18 21:00 05/10/18 20:59 UNV Docusate Sodium (Colace) 100 mg TID ORAL 05/03/18 13:00 06/02/18 12:59 UNV Heparin Sodium (Porcine) (Heparin 5000 units/ml) 5,000 units EVERY 12 HOURS SUBQ 05/03/18 21:00 06/02/18 20:59 UNV Levothyroxine Sodium (Synthroid) 50 mcg DAILY@0630 ORAL 05/04/18 06:30 06/03/18 06:29 Morphine Sulfate (Morphine Sulfate) 2 mg Q4H PRN IVP Moderate Pain (Pain Scale 4-6) 05/03/18 12:30 05/10/18 12:29 Ondansetron HCl (Zofran) 4 mg Q6H PRN IVP Nausea & Vomiting 05/03/18 12:30 06/02/18 12:29 Phenazopyridine HCl (Pyridium) 100 mg DAILYPRN PRN ORAL dysuria/pain on urination 05/03/18 12:30 06/02/18 12:29 Polyethylene Glycol (Miralax) 17 gm BEDTIME ORAL 05/03/18 21:00 06/02/18 20:59 UNV Polyethylene Glycol (Miralax) 17 gm DAILYPRN PRN ORAL Constipation 05/03/18 12:30 06/02/18 12:29 Temazepam (Restoril) 15 mg HSPRN PRN ORAL Insomnia 05/03/18 21:00 05/10/18 20:59 Vancomycin HCl 1 gm/Dextrose 275 ml @ 183.3 mls/ hr Q24H IV 05/04/18 00:30 05/09/18 00:29 UNV Assessment/Plan Problem List: (1) Acute bronchiolitis ICD Codes: J21.9 - Acute bronchiolitis, unspecified SNOMED: 3322384 (2) Severe malnutrition ICD Codes: E43 - Unspecified severe protein-calorie malnutrition SNOMED: 91537796 (3) Constipation ICD Codes: K59.00 - Constipation, unspecified SNOMED: 66844702 (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
[2018-05-03 13:30] VITALS: BP 132/75
--- NOTE | 2018-05-03 13:32 | Diagnostic Imaging Report ---
Indication: Shortness of breath Technique: One view of the chest Comparison: 04/30/2015 Findings: Right perihilar scarring is unchanged. Lungs pleural spaces otherwise clear. Heart size borderline enlarged. Aorta tortuous and calcified Impression: No acute process. Findings as noted
--- NOTE | 2018-05-03 14:06 | Emergency Room Report ---
History of Present Illness General Chief Complaint: Altered Mental Status Source: Patient, Medical Record Present Illness HPI Patient is a 72-year-old female who presented after increased generalized weakness and increased pain. Patient had been having increased nonproductive cough. She reports having some increased burning sensation to her lower abdomen. She reports having prior history of CVA. Should be noted to be weak to the left side which was normal for her. Allergies: Coded Allergies: NO KNOWN ALLERGIES (Unverified Allergy, Unknown, 04/30/15) Patient History Past Medical History: see triage record Now: No Reviewed Nursing Documentation: PSxH: Agreed Nursing Documentation-PMH Past Medical History: No History, Except For Hx Cardiac Problems: Yes - pressure ulcer stage 3, aphasia, hypothyroidism, hyperlipidemia Hx Hypertension: Yes Hx Diabetes: No Hx Cancer: No Hx Gastrointestinal Problems: Yes - GERD History Of Psychiatric Problem: Yes - MDD Hx Cerebrovascular Accident: Yes Hx Paralysis: Yes - Left Side Hx Headaches: Yes Review of Systems All Other Systems: negative except mentioned in HPI Physical Exam Vital Signs Date Time Temp Pulse Resp B/P (MAP) Pulse Ox O2 Delivery O2 Flow Rate FiO2 05/03/18 11:10 78 14 Room Air 97 05/03/18 11:10 98.3 122/70 98 Sp02 EP Interpretation: normal General Appearance: Chronically Ill Neck: full range of motion Respiratory: wheezing Cardiovascular #1: normal peripheral pulses, regular rate, rhythm Neurologic: normal inspection, alert, oriented x3 Medical Decision Making ER Course Patient presented for generalized weakness. Patient reports having increased difficulty breathing as well as lower abdominal pain. Differential diagnosis include was not limited to urinary tract infection, bowel obstruction, medication withdrawal among others. Because of complexity of patient's case laboratory testing and imaging studies were ordered. Patient was noted to have prior history of CVA with residual left-sided weakness.The patient's laboratory testing was notable for slightly low white blood count. Patient was noted to be chronically debilitated she was given medications for pain. She was given breathing treatment. Dr. Olegario Dunaway was contacted for inpatient management due to primary care physician. Labs Test 05/03/18 12:15 05/03/18 15:30 05/04/18 07:26 05/05/18 08:50 White Blood Count 6.9 K/UL (4.8-10.8) 9.5 K/UL (4.8-10.8) 5.4 K/UL (4.8-10.8) Red Blood Count 3.93 M/UL (4.20-5.40) 3.79 M/UL (4.20-5.40) 3.84 M/UL (4.20-5.40) Hemoglobin 11.3 G/DL (12.0-16.0) 11.1 G/DL (12.0-16.0) 11.2 G/DL (12.0-16.0) Hematocrit 36.2 % (37.0-47.0) 35.1 % (37.0-47.0) 35.8 % (37.0-47.0) Mean Corpuscular Volume 92 FL (80-99) 93 FL (80-99) 93 FL (80-99) Mean Corpuscular Hemoglobin 28.8 PG (27.0-31.0) 29.4 PG (27.0-31.0) 29.0 PG (27.0-31.0) Mean Corpuscular Hemoglobin Concent 31.2 G/DL (32.0-36.0) 31.7 G/DL (32.0-36.0) 31.1 G/DL (32.0-36.0) Red Cell Distribution Width 11.6 % (11.6-14.8) 11.8 % (11.6-14.8) 11.9 % (11.6-14.8) Platelet Count 257 K/UL (150-450) 242 K/UL (150-450) 258 K/UL (150-450) Mean Platelet Volume 6.3 FL (6.5-10.1) 6.5 FL (6.5-10.1) 6.5 FL (6.5-10.1) Neutrophils (%) (Auto) 64.8 % (45.0-75.0) 83.4 % (45.0-75.0) 52.5 % (45.0-75.0) Lymphocytes (%) (Auto) 26.3 % (20.0-45.0) 9.9 % (20.0-45.0) 34.7 % (20.0-45.0) Monocytes (%) (Auto) 7.0 % (1.0-10.0) 5.3 % (1.0-10.0) 8.4 % (1.0-10.0) Eosinophils (%) (Auto) 0.9 % (0.0-3.0) 1.1 % (0.0-3.0) 3.8 % (0.0-3.0) Basophils (%) (Auto) 1.1 % (0.0-2.0) 0.2 % (0.0-2.0) 0.6 % (0.0-2.0) Sodium Level 138 MMOL/L (136-145) 137 MMOL/L (136-145) 141 MMOL/L (136-145) Potassium Level 4.6 MMOL/L (3.5-5.1) 4.0 MMOL/L (3.5-5.1) 3.8 MMOL/L (3.5-5.1) Chloride Level 101 MMOL/L (98-107) 103 MMOL/L (98-107) 105 MMOL/L (98-107) Carbon Dioxide Level 28 MMOL/L (21-32) 24 MMOL/L (21-32) 28 MMOL/L (21-32) Anion Gap 9 mmol/L (5-15) 10 mmol/L (5-15) 8 mmol/L (5-15) Blood Urea Nitrogen 30 mg/dL (7-18) 21 mg/dL (7-18) 17 mg/dL (7-18) Creatinine 1.1 MG/DL (0.55-1.30) 1.1 MG/DL (0.55-1.30) 1.0 MG/DL (0.55-1.30) Estimat Glomerular Filtration Rate mL/min (>60) mL/min (>60) mL/min (>60) Glucose Level 84 MG/DL (74-106) 86 MG/DL (74-106) 71 MG/DL (74-106) Lactic Acid Level 1.00 mmol/L (0.4-2.0) Calcium Level 9.8 MG/DL (8.5-10.1) 8.9 MG/DL (8.5-10.1) 9.2 MG/DL (8.5-10.1) Total Bilirubin 0.6 MG/DL (0.2-1.0) 0.7 MG/DL (0.2-1.0) Aspartate Amino Transf (AST/SGOT) 27 U/L (15-37) 153 U/L (15-37) Alanine Aminotransferase (ALT/SGPT) 17 U/L (12-78) 132 U/L (12-78) Alkaline Phosphatase 88 U/L (46-116) 149 U/L (46-116) Total Creatine Kinase 151 U/L (26-308) Creatine Kinase MB 1.7 NG/ML (0.0-3.6) Creatine Kinase MB Relative Index 1.1 Troponin I 0.005 ng/mL (0.000-0.056) 0.000 ng/mL (0.000-0.056) Total Protein 8.1 G/DL (6.4-8.2) 7.2 G/DL (6.4-8.2) Albumin 3.5 G/DL (3.4-5.0) 3.1 G/DL (3.4-5.0) Globulin 4.6 g/dL 4.1 g/dL Albumin/Globulin Ratio 0.8 (1.0-2.7) 0.8 (1.0-2.7) Urine Color Pale yellow Urine Appearance Slightly cloudy Urine pH 6 (4.5-8.0) Urine Specific [place] 1.015 (1.005-1.035) Urine Protein Negative (NEGATIVE) Urine Glucose (UA) Negative (NEGATIVE) Urine Ketones 2+ (NEGATIVE) Urine Blood Negative (NEGATIVE) Urine Nitrite Negative (NEGATIVE) Urine Bilirubin Negative (NEGATIVE) Urine Urobilinogen Normal MG/DL (0.0-1.0) Urine Leukocyte Esterase 1+ (NEGATIVE) Urine RBC 2-4 /HPF (0 - 2) Urine WBC 5-10 /HPF (0 - 2) Urine Squamous Epithelial Cells Few /LPF (NONE/OCC) Urine Amorphous Sediment Few /LPF (NONE) Urine Bacteria Moderate /HPF (NONE) Hepatitis A IgM Antibody Hepatitis B Surface Antigen Hepatitis B Core IgM Antibo Hepatitis C Antibody Test 05/06/18 07:10 White Blood Count 5.6 K/UL (4.8-10.8) Red Blood Count 3.80 M/UL (4.20-5.40) Hemoglobin 11.1 G/DL (12.0-16.0) Hematocrit 35.6 % (37.0-47.0) Mean Corpuscular Volume 94 FL (80-99) Mean Corpuscular Hemoglobin 29.2 PG (27.0-31.0) Mean Corpuscular Hemoglobin Concent 31.1 G/DL (32.0-36.0) Red Cell Distribution Width 12.1 % (11.6-14.8) Platelet Count 240 K/UL (150-450) Mean Platelet Volume 6.2 FL (6.5-10.1) Neutrophils (%) (Auto) 53.8 % (45.0-75.0) Lymphocytes (%) (Auto) 34.3 % (20.0-45.0) Monocytes (%) (Auto) 6.8 % (1.0-10.0) Eosinophils (%) (Auto) 4.4 % (0.0-3.0) Basophils (%) (Auto) 0.7 % (0.0-2.0) Sodium Level 140 MMOL/L (136-145) Potassium Level 4.1 MMOL/L (3.5-5.1) Chloride Level 105 MMOL/L (98-107) Carbon Dioxide Level 26 MMOL/L (21-32) Anion Gap 9 mmol/L (5-15) Blood Urea Nitrogen 16 mg/dL (7-18) Creatinine 0.9 MG/DL (0.55-1.30) Estimat Glomerular Filtration Rate mL/min (>60) Glucose Level 81 MG/DL (74-106) Calcium Level 9.4 MG/DL (8.5-10.1) Last Vital Signs Date Time Temp Pulse Resp B/P (MAP) Pulse Ox O2 Delivery O2 Flow Rate FiO2 05/03/18 13:30 98.3 84 17 132/75 95 Room Air 97 Referrals: Olegario Dunaway DO (PCP) Caio Florez MD May 03, 2018 14:06
[2018-05-03] MEDS ORDERED: Vancomycin 1 GM in D5W 275 ML IVPB SCH (15:00)
[2018-05-03] MEDS: Morphine Sulfate 2mg/ml Inj IVP PRN ×2 (15:19→20:06)
[2018-05-03] MEDS ORDERED: Cefepime HCl 2 GM in D5W 110 ML IV SCH (16:00)
--- NOTE | 2018-05-03 16:20 | Cardiac Electrophysiology PN ---
Subjective Subjective [id number] Objective Last 24 Hour Vital Signs Date Time Temp Pulse Resp B/P (MAP) Pulse Ox O2 Delivery O2 Flow Rate FiO2 05/03/18 13:30 98.3 84 17 132/75 95 Room Air 97 05/03/18 13:30 98.3 84 17 132/75 95 Room Air 05/03/18 11:12 98.1 50 18 145/67 98 Room Air 05/03/18 11:10 98.3 73 14 122/70 98 Room Air 05/03/18 11:10 78 14 Room Air 97 Laboratory Tests Test 05/03/18 12:15 White Blood Count 6.9 K/UL (4.8-10.8) Red Blood Count 3.93 M/UL (4.20-5.40) L Hemoglobin 11.3 G/DL (12.0-16.0) L Hematocrit 36.2 % (37.0-47.0) L Mean Corpuscular Volume 92 FL (80-99) Mean Corpuscular Hemoglobin 28.8 PG (27.0-31.0) Mean Corpuscular Hemoglobin Concent 31.2 G/DL (32.0-36.0) L Red Cell Distribution Width 11.6 % (11.6-14.8) Platelet Count 257 K/UL (150-450) Mean Platelet Volume 6.3 FL (6.5-10.1) L Neutrophils (%) (Auto) 64.8 % (45.0-75.0) Lymphocytes (%) (Auto) 26.3 % (20.0-45.0) Monocytes (%) (Auto) 7.0 % (1.0-10.0) Eosinophils (%) (Auto) 0.9 % (0.0-3.0) Basophils (%) (Auto) 1.1 % (0.0-2.0) Sodium Level 138 MMOL/L (136-145) Potassium Level 4.6 MMOL/L (3.5-5.1) Chloride Level 101 MMOL/L (98-107) Carbon Dioxide Level 28 MMOL/L (21-32) Anion Gap 9 mmol/L (5-15) Blood Urea Nitrogen 30 mg/dL (7-18) H Creatinine 1.1 MG/DL (0.55-1.30) Estimat Glomerular Filtration Rate mL/min (>60) Glucose Level 84 MG/DL (74-106) Lactic Acid Level 1.00 mmol/L (0.4-2.0) Calcium Level 9.8 MG/DL (8.5-10.1) Total Bilirubin 0.6 MG/DL (0.2-1.0) Aspartate Amino Transf (AST/SGOT) 27 U/L (15-37) Alanine Aminotransferase (ALT/SGPT) 17 U/L (12-78) Alkaline Phosphatase 88 U/L (46-116) Total Creatine Kinase 151 U/L (26-308) Creatine Kinase MB 1.7 NG/ML (0.0-3.6) Creatine Kinase MB Relative Index 1.1 Troponin I 0.005 ng/mL (0.000-0.056) Total Protein 8.1 G/DL (6.4-8.2) Albumin 3.5 G/DL (3.4-5.0) Globulin 4.6 g/dL Albumin/Globulin Ratio 0.8 (1.0-2.7) Sanket Anton MD May 03, 2018 16:20
[2018-05-03 20:00] VITALS: BP 125/52
--- NOTE | 2018-05-03 20:00 | Consultation ---
DATE OF CONSULTATION: 05/03/2018 CARDIOLOGY CONSULTATION CONSULTING PHYSICIAN: Sanket Tinsley M.D. REFERRING PHYSICIAN: Olegario Dunaway D.O. REASON FOR CONSULTATION: Hypertension in the patient with generalized weakness. HISTORY OF PRESENT ILLNESS: The patient is a 72-year-old lady with history of hypertension and history of CVA with left-sided hemiplegia, who was brought to the emergency room for increasing generalized weakness and pain as well as nonproductive cough. The patient was admitted and Cardiology consultation was obtained for further evaluation. At the time of my evaluation, the patient denies any chest pain, palpitation, or shortness of breath. REVIEW OF SYSTEMS: Negative other than what was mentioned in history of present illness. PAST MEDICAL HISTORY: 1. Hypertension. 2. Hyperlipidemia. 3. History of CVA with left hemiplegia. 4. History of . FAMILY HISTORY: Noncontributory. PHYSICAL EXAMINATION: VITAL SIGNS: Blood pressure is 132/75, pulse is 84 and was as low as 50, respirations 18, and temperature 98.3. HEAD AND NECK: Shows no JVD. LUNGS: Clear. CARDIOVASCULAR: Shows regular S1 and S2 with no gallop. ABDOMEN: Soft. EXTREMITIES: No pitting edema. NEUROLOGIC: She has left hemiplegia and upper extremity contractions. LABORATORY AND DIAGNOSTIC DATA: Labs show white count of 6.9, hemoglobin 11.4, hematocrit 36.5, platelet 257,000. Sodium 138, potassium 4.6, BUN of 30, creatinine 1.1. Troponin is negative. ASSESSMENT AND PLAN: 1. Weakness. First troponin is negative. Repeat EKG and echocardiogram for further evaluation. 2. Hypertension. I will add p.r.n. clonidine to her medical regimen. Currently, her blood pressure is stable off antihypertensives. 3. CVA with left hemiplegia. 4. Hypothyroidism, on Synthroid. 5. Possible pneumonia, on antibiotic per Dr. Lawler. Thank you very much for allowing me to participate in the care of this patient. Please do not hesitate to contact me for any questions regarding my evaluation. Sanket Tinsley M.D. DR: Tung JOB#: [id number] CC:
--- NOTE | 2018-05-03 20:00 | History and Physical Report ---
DATE OF ADMISSION: 05/03/2018 CONSULTANTS: 1. Amira Lawler M.D. 2. Sanket Tinsley M.D. 3. Zaid Ochoa M.D. 4. Shawn London M.D. 5. Luiz Albert M.D. CHIEF COMPLAINT: Weakness, fever, failure to thrive, and low blood pressure. BRIEF HISTORY: This is a 72-year-old female, living at [facility], presents with increased weight loss, lethargy, unable to eat, and confusion. The patient came to [place], diagnosed with the above, and admitted to telemetry for further care. Currently, calm in bed, oriented x2, in no acute distress. PAST MEDICAL HISTORY: Includes CVA, decubitus, anemia, arthritis, and malnutrition. PAST SURGICAL HISTORY: None. MEDICATIONS: Include levothyroxine, heparin, temazepam, cefepime, vancomycin, albuterol, morphine, and docusate sodium. ALLERGIES: Denies. SOCIAL HISTORY: No smoking. No alcohol. No intravenous drug abuse. FAMILY HISTORY: Noncontributory. PHYSICAL EXAMINATION: GENERAL: Calm in bed, oriented x2, in no acute distress. VITAL SIGNS: Temperature is 98 degrees, pulse 84, respirations 17, and blood pressure 132/75. CARDIOVASCULAR: No murmurs. LUNGS: Distant and clear. ABDOMEN: Bowel sounds positive. Nontender. Nondistended. EXTREMITIES: No cyanosis, clubbing, or edema. NEUROLOGIC: The patient moves all extremities, slightly weak especially left arm contracture and weakness noted. LABORATORY DATA: Labs at this time show hemoglobin 11.3, otherwise CBC is normal. BMP show BUN 30, otherwise BMP is normal. ASSESSMENT: 1. Weakness. 2. Shock. 3. Fever. 4. Failure to thrive. 5. CVA. 6. Left-sided weakness. 7. Decubitus ulcer. 8. Anemia. 9. Arthritis. 10. Malnutrition. PLAN: 1. PT and dietary evaluation. 2. Resume home medications. 3. Pain control. 4. CBC and BMP in the morning. 5. We will add Dr. Harvey, Psych evaluation. Olegario Dunaway D.O. DR: SOSA JOB#: [id number] CC:
[2018-05-03] MEDS: Heparin 5000 units/ml inj SUBQ SCH (20:06)
[2018-05-03 20:16] LABS: APPEARANCE,URINE SLIGHTLY CLOUDY; BILIRUBIN, URINE NEGATIVE (NEGATIVE); COLOR,URINE PALE YELLOW; GLUCOSE, URINE (UA) NEGATIVE (NEGATIVE); KETONES,URINE 2+ (NEGATIVE); LEUKOCYTE ESTERASE ,URINE 1+ (NEGATIVE); NITRITE,URINE NEGATIVE (NEGATIVE); PH,URINE 6 (4.5-8.0); PROTEIN,URINE NEGATIVE (NEGATIVE); UROBILINOGEN,URINE NORMAL MG/DL (0.0-1.0)
[2018-05-03] MEDS ORDERED: Miralax 17gm pkt ORAL SCH (21:00)
[2018-05-04] VITALS: BP 122/51
[2018-05-04] MEDS: Morphine Sulfate 2mg/ml Inj IVP PRN ×5 (00:06→22:01)
[2018-05-04 04:00] VITALS: BP 119/56
[2018-05-04 08:00] VITALS: BP 99/53
[2018-05-04 08:04] LABS: BASOPHILS % (AUTO) 0.2 % (0.0-2.0); EOSINOPHILS % (AUTO) 1.1 % (0.0-3.0); HEMATOCRIT 35.1 % (37.0-47.0); HEMOGLOBIN 11.1 G/DL (12.0-16.0); LYMPHOCYTES % (AUTO) 9.9 % (20.0-45.0); MEAN CORPUSCULAR VOLUME 93 FL (80-99); MONOCYTES % (AUTO) 5.3 % (1.0-10.0); NEUTROPHILS % (AUTO) 83.4 % (45.0-75.0); PLATELET COUNT 242 K/UL (150-450); RED BLOOD COUNT 3.79 M/UL (4.20-5.40); RED CELL DISTRIBUTION WIDTH 11.8 % (11.6-14.8); WHITE BLOOD COUNT 9.5 K/UL (4.8-10.8)
--- NOTE | 2018-05-04 08:39 | Consultation ---
History of Present Illness General Date patient seen: May 04, 2018 Chief Complaint: Altered Mental Status Referring physician: MAX YOUNG Reason for Consultation: UTI Present Illness HPI Ms. George is a 72 yo female with PMHx of CVA wit residual left sided deficits , Anema, Arthritis and failure to thrive who was [facility] ED from her [facility] with increased lethargy and reported fever. In the ED she was a/o x 2, Afebrile, had no leukocytosis. Her CXR was negative. UA slightly positive. She reports some cough, generalized weakness and burning sensation in her abdomen and with urination. Denies Fever, chill, SOB, Dysuria and bleeding. ID was consulted for UTI. PMHx/PSHx CVA wit residual left sided deficits HTN Hypothyroidism HLD Anema Arthritis SocHx No E/T/D FamHx Not contributory Allergies: Coded Allergies: NO KNOWN ALLERGIES (Unverified Allergy, Unknown, 04/30/15) Medication History Scheduled Aspirin* (Aspirin*), 81 MG ORAL DAILY, (Reported) Atorvastatin Calcium* (Lipitor*), 10 MG ORAL BEDTIME, (Reported) Citalopram Hydrobromide* (Celexa*), 20 MG ORAL DAILY, (Reported) Clonidine Hcl (Clonidine Hcl), 0.1 MG PO Q6HR, (Reported) Docusate Sodium* (Docusate Sodium*), 100 MG ORAL THREE TIMES A DAY, (Reported) Lactulose (Lactulose*), 30 ML ORAL TID, (Reported) Levothyroxine Sodium (Levothyroxine Sodium), 50 MCG ORAL DAILY, (Reported) Levothyroxine Sodium* (Levothyroxine Sodium*), 50 MCG ORAL DAILY 0630, (Reported ) Lisinopril (Lisinopril*), 20 MG ORAL DAILY, (Reported) Mupirocin* (Mupirocin*), 1 APPLIC TOPIC BID, (Reported) Sennosides* (Sennosides*), 8.6 MG ORAL DAILY, (Reported) Temazepam (Temazepam), 15 MG PO QHS, (Reported) Valsartan/Hydrochlorothiazide 160-25MG (Diovan Hct 160-25 Mg Tablet), 1 TAB ORAL DAILY, (Reported) Scheduled PRN Albuterol Sulfate* (Albuterol Sulfate Hhn*), 3 ML INH Q4H PRN for Shortness of Breath, (Reported) Hydrocodone Bit/Acetaminophen 5-325* ([place] 5-325*), 1 TAB ORAL Q6H PRN for For Pain, (Reported) Polyethylene Glycol 3350* (Polyethylene Glycol 3350*), 17 GM ORAL BEDTIME PRN for Constipation, (Reported) Miscellaneous Medications Acetaminophen (Tylenol), 325 MG ORAL, (Reported) Ascorbic Acid* (Vitamin C*), 500 MG ORAL, (Reported) Brimonidine Tartrate (Alphagan P), 5 ML OP, (Reported) Calcium Carbonate (Calcium Carbonate), 650 MG GT, (Reported) Cranberry Fruit Concentrate (Cranberry), 450 MG PO, (Reported) Ibuprofen (Ibuprofen), 600 MG PO, (Reported) Menthol (Bengay), 113 GM TP, (Reported) Tuberculin,Purif.prot.deriv. (Tubersol), 0.1 ML ID, (Reported) Vitamin D (Vitamin D3), 5,000 UNITS ORAL, (Reported) Discontinued Medications Ascorbic Acid* (Vitamin C*), 250 MG ORAL DAILY, (Reported) Discontinued Reason: Medication dose changed Hydrocodone Bit/Acetaminophen 5-325* ([place] 5-325*), 1 TAB ORAL, (Reported) Discontinued Reason: Medication dose changed Ibuprofen* (Motrin*), 600 MG ORAL, (Reported) Discontinued Reason: Medication dose changed Patient History Healthcare decision maker patient Resuscitation status Full Code Advanced Directive on File No Review of Systems ROS Narrative 12 point ROS negative except as note in the HPI. Physical Exam Last 24 Hour Vital Signs Date Time Temp Pulse Resp B/P (MAP) Pulse Ox O2 Delivery O2 Flow Rate FiO2 05/04/18 04:00 97.0 64 18 119/56 (77) 96 05/04/18 04:00 55 05/04/18 00:00 78 05/04/18 00:00 97.6 60 18 122/51 (74) 94 05/03/18 21:00 Room Air 05/03/18 20:36 98.3 05/03/18 20:00 96.4 70 18 125/52 (76) 96 05/03/18 20:00 59 05/03/18 15:22 62 05/03/18 14:27 Room Air 05/03/18 13:30 98.3 84 17 132/75 95 Room Air 97 05/03/18 13:30 98.3 84 17 132/75 95 Room Air 05/03/18 12:59 97.2 05/03/18 11:12 98.1 50 18 145/67 98 Room Air 05/03/18 11:10 98.3 73 14 122/70 98 Room Air 05/03/18 11:10 78 14 Room Air 97 Intake and Output 05/03/18 05/04/18 19:00 07:00 Intake Total 300 ml Balance 300 ml Intake Oral 300 ml # Voids 2 1 Laboratory Tests Test 05/03/18 12:15 05/03/18 15:30 05/04/18 07:26 White Blood Count 6.9 K/UL (4.8-10.8) 9.5 K/UL (4.8-10.8) Red Blood Count 3.93 M/UL (4.20-5.40) L 3.79 M/UL (4.20-5.40) L Hemoglobin 11.3 G/DL (12.0-16.0) L 11.1 G/DL (12.0-16.0) L Hematocrit 36.2 % (37.0-47.0) L 35.1 % (37.0-47.0) L Mean Corpuscular Volume 92 FL (80-99) 93 FL (80-99) Mean Corpuscular Hemoglobin 28.8 PG (27.0-31.0) 29.4 PG (27.0-31.0) Mean Corpuscular Hemoglobin Concent 31.2 G/DL (32.0-36.0) L 31.7 G/DL (32.0-36.0) L Red Cell Distribution Width 11.6 % (11.6-14.8) 11.8 % (11.6-14.8) Platelet Count 257 K/UL (150-450) 242 K/UL (150-450) Mean Platelet Volume 6.3 FL (6.5-10.1) L 6.5 FL (6.5-10.1) Neutrophils (%) (Auto) 64.8 % (45.0-75.0) 83.4 % (45.0-75.0) H Lymphocytes (%) (Auto) 26.3 % (20.0-45.0) 9.9 % (20.0-45.0) L Monocytes (%) (Auto) 7.0 % (1.0-10.0) 5.3 % (1.0-10.0) Eosinophils (%) (Auto) 0.9 % (0.0-3.0) 1.1 % (0.0-3.0) Basophils (%) (Auto) 1.1 % (0.0-2.0) 0.2 % (0.0-2.0) Sodium Level 138 MMOL/L (136-145) Pending Potassium Level 4.6 MMOL/L (3.5-5.1) Pending Chloride Level 101 MMOL/L (98-107) Pending Carbon Dioxide Level 28 MMOL/L (21-32) Pending Anion Gap 9 mmol/L (5-15) Blood Urea Nitrogen 30 mg/dL (7-18) H Pending Creatinine 1.1 MG/DL (0.55-1.30) Pending Estimat Glomerular Filtration Rate mL/min (>60) Pending Glucose Level 84 MG/DL (74-106) Pending Lactic Acid Level 1.00 mmol/L (0.4-2.0) Calcium Level 9.8 MG/DL (8.5-10.1) Pending Total Bilirubin 0.6 MG/DL (0.2-1.0) Pending Aspartate Amino Transf (AST/SGOT) 27 U/L (15-37) Pending Alanine Aminotransferase (ALT/SGPT) 17 U/L (12-78) Pending Alkaline Phosphatase 88 U/L (46-116) Pending Total Creatine Kinase 151 U/L (26-308) Creatine Kinase MB 1.7 NG/ML (0.0-3.6) Creatine Kinase MB Relative Index 1.1 Troponin I 0.005 ng/mL (0.000-0.056) 0.000 ng/mL (0.000-0.056) Total Protein 8.1 G/DL (6.4-8.2) Pending Albumin 3.5 G/DL (3.4-5.0) Pending Globulin 4.6 g/dL Pending Albumin/Globulin Ratio 0.8 (1.0-2.7) L Urine Color Pale yellow Urine Appearance Slightly cloudy Urine pH 6 (4.5-8.0) Urine Specific [place] 1.015 (1.005-1.035) Urine Protein Negative (NEGATIVE) Urine Glucose (UA) Negative (NEGATIVE) Urine Ketones 2+ (NEGATIVE) H Urine Blood Negative (NEGATIVE) Urine Nitrite Negative (NEGATIVE) Urine Bilirubin Negative (NEGATIVE) Urine Urobilinogen Normal MG/DL (0.0-1.0) Urine Leukocyte Esterase 1+ (NEGATIVE) H Urine RBC 2-4 /HPF (0 - 2) H Urine WBC 5-10 /HPF (0 - 2) H Urine Squamous Epithelial Cells Few /LPF (NONE/OCC) Urine Amorphous Sediment Few /LPF (NONE) H Urine Bacteria Moderate /HPF (NONE) H Height (Feet): 5 Height (Inches): 4.00 Weight (Pounds): 110 Medications Current Medications Medications (Trade) Dose Ordered Sig/Marilu Route PRN Reason Start Time Stop Time Status Last Admin Dose Admin Acetaminophen (Tylenol) 650 mg Q4H PRN ORAL T>100.5 05/03/18 12:30 06/02/18 12:29 Albuterol/ Ipratropium (Albuterol/ Ipratropium) 3 ml Q4H PRN HHN Shortness of Breath 05/03/18 12:30 05/08/18 12:29 Ceftriaxone Sodium 1 gm/ Dextrose 55 ml @ 110 mls/hr Q24H IVPB 05/04/18 10:00 05/11/18 09:59 Docusate Sodium (Colace) 100 mg TID ORAL 05/03/18 13:00 06/02/18 12:59 05/03/18 17:05 Heparin Sodium (Porcine) (Heparin 5000 units/ml) 5,000 units EVERY 12 HOURS SUBQ 05/03/18 21:00 06/02/18 20:59 Levothyroxine Sodium (Synthroid) 50 mcg DAILY@0630 ORAL 05/04/18 06:30 06/03/18 06:29 05/04/18 06:44 Morphine Sulfate (Morphine Sulfate) 2 mg Q4H PRN IVP Moderate Pain (Pain Scale 4-6) 05/03/18 12:30 05/10/18 12:29 05/04/18 06:57 Ondansetron HCl (Zofran) 4 mg Q6H PRN IVP Nausea & Vomiting 05/03/18 12:30 06/02/18 12:29 Phenazopyridine HCl (Pyridium) 100 mg DAILYPRN PRN ORAL dysuria/pain on urination 05/03/18 12:30 06/02/18 12:29 Polyethylene Glycol (Miralax) 17 gm BEDTIME ORAL 05/03/18 21:00 06/02/18 20:59 Polyethylene Glycol (Miralax) 17 gm DAILYPRN PRN ORAL Constipation 05/03/18 12:30 06/02/18 12:29 Temazepam (Restoril) 15 mg HSPRN PRN ORAL Insomnia 05/03/18 21:00 05/10/18 20:59 05/03/18 21:07 Objective Narrative Gen: NAD, Thin HEENT: NCAT, MMM, EOMI, PERRL, No Oral lesion, no scleral icterus NECK: full range of motion, supple, no meningismus, No LAD, No JVD LUNGS: CTAB, No W/C, No Accessory muscle use CARDS: RRR, S1, S2, No M/R/G, ABD: Soft, NT, ND, No R/G, + BS, No HSM, No Masses : Deferred Ext: C/C/E, Pulses 2+ B/L (DP, Rad): NEURO: A/O x 3, Decreased strength left side PSYCH: Mood/affect normal SKIN: Warm/dry, No rashes Assessment/Plan Assessment/Plan 72 yo [place] with PMHx of CVA wit residual left sided deficits, Anema, Arthritis and failure to thrive [facility] and reprted fever. UTI UA positive [facility] of [facility] at [facility] Aferbile No leukocytosis Hx of constipation/fecal impaction CVA wit residual left sided deficits HTN Hypothyroidism PLAN - Continue Ceftriaoxone #/ for UTI - 05/04/18 S/P Cefepime and Vancomycin - Monitor CBC and Temps - Monitor BMs Thank you for this consult. We will continue to follow the patient during this hospitalization. Michel Santos MD May 04, 2018 08:39
[2018-05-04 08:51] LABS: ALANINE AMINOTRANSFERASE 132 U/L (12-78); ALBUMIN 3.1 G/DL (3.4-5.0); ALBUMIN/GLOBULIN RATIO 0.8 (1.0-2.7); ALKALINE PHOSPHATASE 149 U/L (46-116); ANION GAP 10 mmol/L (5-15); ASPARTATE AMINO TRANSFERASE 153 U/L (15-37); BILIRUBIN,TOTAL 0.7 MG/DL (0.2-1.0); BLOOD UREA NITROGEN 21 mg/dL (7-18); CALCIUM 8.9 MG/DL (8.5-10.1); CARBON DIOXIDE 24 MMOL/L (21-32); CHLORIDE 103 MMOL/L (98-107); CREATININE 1.1 MG/DL (0.55-1.30); SODIUM 137 MMOL/L (136-145)
[2018-05-04] MEDS: Docusate 100mg cap ORAL SCH ×3 (09:22→18:00)
[2018-05-04] MEDS: Heparin 5000 units/ml inj SUBQ SCH ×2 (09:26→20:24)
[2018-05-04] MEDS ORDERED: cefTRIAXone 1 GM in D5W 55 ML IVPB SCH (10:00)
--- NOTE | 2018-05-04 10:32 | GI Progress Note ---
Assessment/Plan Problems: (1) Constipation ICD Codes: K59.00 - Constipation, unspecified SNOMED: 70752563 (2) Anemia ICD Codes: D64.9 - Anemia, unspecified SNOMED: 583538024 (3) Fecal impaction ICD Codes: K56.41 - Fecal impaction SNOMED: 15479770 (4) Abdominal pain ICD Codes: R10.9 - Unspecified abdominal pain SNOMED: 47068086 (5) Weight loss ICD Codes: R63.4 - Abnormal weight loss SNOMED: 58610140, 041900212 (6) Severe malnutrition ICD Codes: E43 - Unspecified severe protein-calorie malnutrition SNOMED: 98452489 (7) Diabetes ICD Codes: E11.9 - Type 2 diabetes mellitus without complications SNOMED: 43349510 Status: unchanged Status Narrative Discussed with Dr. Albert. Assessment/Plan new onset of transaminitis Recent history of endoscopic colonoscopy was last year, noted with unremarkable findings advance to regular diet Begin the patient on a bowel regimen given history of severe constipation Anemia workup reviewed from prior admission OB stool to rule out GI bleed PPI Follow-up chest x-ray Prophylactic antibiotics fu labs, trend LFTs Will consider GI procedures if necessary The patient was seen and examined at bedside and all new and available data was reviewed in the patients chart. I agree with the above findings, impression and plan. (Patient seen earlier today. Signature stamp does not reflect patient encounter time.). - Luiz Albert MD Subjective Subjective Still complains of abdominal pain Tolerating diet Refusing care Objective Last 24 Hour Vital Signs Date Time Temp Pulse Resp B/P (MAP) Pulse Ox O2 Delivery O2 Flow Rate FiO2 05/04/18 08:00 97.2 63 21 99/53 (68) 94 05/04/18 04:00 97.0 64 18 119/56 (77) 96 05/04/18 04:00 55 05/04/18 00:00 78 05/04/18 00:00 97.6 60 18 122/51 (74) 94 05/03/18 21:00 Room Air 05/03/18 20:36 98.3 05/03/18 20:00 96.4 70 18 125/52 (76) 96 05/03/18 20:00 59 05/03/18 15:22 62 05/03/18 14:27 Room Air 05/03/18 13:30 98.3 84 17 132/75 95 Room Air 97 05/03/18 13:30 98.3 84 17 132/75 95 Room Air 05/03/18 12:59 97.2 05/03/18 11:12 98.1 50 18 145/67 98 Room Air 05/03/18 11:10 98.3 73 14 122/70 98 Room Air 05/03/18 11:10 78 14 Room Air 97 Intake and Output 05/03/18 05/04/18 18:59 06:59 Intake Total 300 ml Balance 300 ml Intake Oral 300 ml # Voids 2 1 Laboratory Tests Test 05/03/18 12:15 05/03/18 15:30 05/04/18 07:26 White Blood Count 6.9 K/UL (4.8-10.8) 9.5 K/UL (4.8-10.8) Red Blood Count 3.93 M/UL (4.20-5.40) L 3.79 M/UL (4.20-5.40) L Hemoglobin 11.3 G/DL (12.0-16.0) L 11.1 G/DL (12.0-16.0) L Hematocrit 36.2 % (37.0-47.0) L 35.1 % (37.0-47.0) L Mean Corpuscular Volume 92 FL (80-99) 93 FL (80-99) Mean Corpuscular Hemoglobin 28.8 PG (27.0-31.0) 29.4 PG (27.0-31.0) Mean Corpuscular Hemoglobin Concent 31.2 G/DL (32.0-36.0) L 31.7 G/DL (32.0-36.0) L Red Cell Distribution Width 11.6 % (11.6-14.8) 11.8 % (11.6-14.8) Platelet Count 257 K/UL (150-450) 242 K/UL (150-450) Mean Platelet Volume 6.3 FL (6.5-10.1) L 6.5 FL (6.5-10.1) Neutrophils (%) (Auto) 64.8 % (45.0-75.0) 83.4 % (45.0-75.0) H Lymphocytes (%) (Auto) 26.3 % (20.0-45.0) 9.9 % (20.0-45.0) L Monocytes (%) (Auto) 7.0 % (1.0-10.0) 5.3 % (1.0-10.0) Eosinophils (%) (Auto) 0.9 % (0.0-3.0) 1.1 % (0.0-3.0) Basophils (%) (Auto) 1.1 % (0.0-2.0) 0.2 % (0.0-2.0) Sodium Level 138 MMOL/L (136-145) 137 MMOL/L (136-145) Potassium Level 4.6 MMOL/L (3.5-5.1) 4.0 MMOL/L (3.5-5.1) Chloride Level 101 MMOL/L (98-107) 103 MMOL/L (98-107) Carbon Dioxide Level 28 MMOL/L (21-32) 24 MMOL/L (21-32) Anion Gap 9 mmol/L (5-15) 10 mmol/L (5-15) Blood Urea Nitrogen 30 mg/dL (7-18) H 21 mg/dL (7-18) H Creatinine 1.1 MG/DL (0.55-1.30) 1.1 MG/DL (0.55-1.30) Estimat Glomerular Filtration Rate mL/min (>60) mL/min (>60) Glucose Level 84 MG/DL (74-106) 86 MG/DL (74-106) Lactic Acid Level 1.00 mmol/L (0.4-2.0) Calcium Level 9.8 MG/DL (8.5-10.1) 8.9 MG/DL (8.5-10.1) Total Bilirubin 0.6 MG/DL (0.2-1.0) 0.7 MG/DL (0.2-1.0) Aspartate Amino Transf (AST/SGOT) 27 U/L (15-37) 153 U/L (15-37) H Alanine Aminotransferase (ALT/SGPT) 17 U/L (12-78) 132 U/L (12-78) H Alkaline Phosphatase 88 U/L (46-116) 149 U/L (46-116) H Total Creatine Kinase 151 U/L (26-308) Creatine Kinase MB 1.7 NG/ML (0.0-3.6) Creatine Kinase MB Relative Index 1.1 Troponin I 0.005 ng/mL (0.000-0.056) 0.000 ng/mL (0.000-0.056) Total Protein 8.1 G/DL (6.4-8.2) 7.2 G/DL (6.4-8.2) Albumin 3.5 G/DL (3.4-5.0) 3.1 G/DL (3.4-5.0) L Globulin 4.6 g/dL 4.1 g/dL Albumin/Globulin Ratio 0.8 (1.0-2.7) L 0.8 (1.0-2.7) L Urine Color Pale yellow Urine Appearance Slightly cloudy Urine pH 6 (4.5-8.0) Urine Specific [place] 1.015 (1.005-1.035) Urine Protein Negative (NEGATIVE) Urine Glucose (UA) Negative (NEGATIVE) Urine Ketones 2+ (NEGATIVE) H Urine Blood Negative (NEGATIVE) Urine Nitrite Negative (NEGATIVE) Urine Bilirubin Negative (NEGATIVE) Urine Urobilinogen Normal MG/DL (0.0-1.0) Urine Leukocyte Esterase 1+ (NEGATIVE) H Urine RBC 2-4 /HPF (0 - 2) H Urine WBC 5-10 /HPF (0 - 2) H Urine Squamous Epithelial Cells Few /LPF (NONE/OCC) Urine Amorphous Sediment Few /LPF (NONE) H Urine Bacteria Moderate /HPF (NONE) H Height (Feet): 5 Height (Inches): 4.00 Weight (Pounds): 110 General Appearance: WD/WN, no apparent distress, alert, thin Cardiovascular: normal rate Respiratory/Chest: normal breath sounds, no respiratory distress Abdominal Exam: normal bowel sounds, non tender, soft Extremities: non-tender, other - Left-sided weakness Margarita Santiago NP May 04, 2018 10:32
--- NOTE | 2018-05-04 10:42 | Cardiac Electrophysiology PN ---
Assessment/Plan Assessment/Plan 1. Weakness. Troponins are negative. Repeat EKG . Echocardiogram pending 2. Hypertension. On p.r.n. clonidine Currently, her blood pressure is stable off antihypertensives. 3. CVA with left hemiplegia. 4. Hypothyroidism, on Synthroid. 5. Possible pneumonia, on antibiotic per Dr. Lawler. Subjective Subjective Feeling better. No CP or SOB Objective Last 24 Hour Vital Signs Date Time Temp Pulse Resp B/P (MAP) Pulse Ox O2 Delivery O2 Flow Rate FiO2 05/04/18 08:00 97.2 63 21 99/53 (68) 94 05/04/18 04:00 97.0 64 18 119/56 (77) 96 05/04/18 04:00 55 05/04/18 00:00 78 05/04/18 00:00 97.6 60 18 122/51 (74) 94 05/03/18 21:00 Room Air 05/03/18 20:36 98.3 05/03/18 20:00 96.4 70 18 125/52 (76) 96 05/03/18 20:00 59 05/03/18 15:22 62 05/03/18 14:27 Room Air 05/03/18 13:30 98.3 84 17 132/75 95 Room Air 97 05/03/18 13:30 98.3 84 17 132/75 95 Room Air 05/03/18 12:59 97.2 05/03/18 11:12 98.1 50 18 145/67 98 Room Air 05/03/18 11:10 98.3 73 14 122/70 98 Room Air 05/03/18 11:10 78 14 Room Air 97 Intake and Output 05/03/18 05/04/18 19:00 07:00 Intake Total 300 ml Balance 300 ml Intake Oral 300 ml # Voids 2 1 Laboratory Tests Test 05/03/18 12:15 05/03/18 15:30 05/04/18 07:26 White Blood Count 6.9 K/UL (4.8-10.8) 9.5 K/UL (4.8-10.8) Red Blood Count 3.93 M/UL (4.20-5.40) L 3.79 M/UL (4.20-5.40) L Hemoglobin 11.3 G/DL (12.0-16.0) L 11.1 G/DL (12.0-16.0) L Hematocrit 36.2 % (37.0-47.0) L 35.1 % (37.0-47.0) L Mean Corpuscular Volume 92 FL (80-99) 93 FL (80-99) Mean Corpuscular Hemoglobin 28.8 PG (27.0-31.0) 29.4 PG (27.0-31.0) Mean Corpuscular Hemoglobin Concent 31.2 G/DL (32.0-36.0) L 31.7 G/DL (32.0-36.0) L Red Cell Distribution Width 11.6 % (11.6-14.8) 11.8 % (11.6-14.8) Platelet Count 257 K/UL (150-450) 242 K/UL (150-450) Mean Platelet Volume 6.3 FL (6.5-10.1) L 6.5 FL (6.5-10.1) Neutrophils (%) (Auto) 64.8 % (45.0-75.0) 83.4 % (45.0-75.0) H Lymphocytes (%) (Auto) 26.3 % (20.0-45.0) 9.9 % (20.0-45.0) L Monocytes (%) (Auto) 7.0 % (1.0-10.0) 5.3 % (1.0-10.0) Eosinophils (%) (Auto) 0.9 % (0.0-3.0) 1.1 % (0.0-3.0) Basophils (%) (Auto) 1.1 % (0.0-2.0) 0.2 % (0.0-2.0) Sodium Level 138 MMOL/L (136-145) 137 MMOL/L (136-145) Potassium Level 4.6 MMOL/L (3.5-5.1) 4.0 MMOL/L (3.5-5.1) Chloride Level 101 MMOL/L (98-107) 103 MMOL/L (98-107) Carbon Dioxide Level 28 MMOL/L (21-32) 24 MMOL/L (21-32) Anion Gap 9 mmol/L (5-15) 10 mmol/L (5-15) Blood Urea Nitrogen 30 mg/dL (7-18) H 21 mg/dL (7-18) H Creatinine 1.1 MG/DL (0.55-1.30) 1.1 MG/DL (0.55-1.30) Estimat Glomerular Filtration Rate mL/min (>60) mL/min (>60) Glucose Level 84 MG/DL (74-106) 86 MG/DL (74-106) Lactic Acid Level 1.00 mmol/L (0.4-2.0) Calcium Level 9.8 MG/DL (8.5-10.1) 8.9 MG/DL (8.5-10.1) Total Bilirubin 0.6 MG/DL (0.2-1.0) 0.7 MG/DL (0.2-1.0) Aspartate Amino Transf (AST/SGOT) 27 U/L (15-37) 153 U/L (15-37) H Alanine Aminotransferase (ALT/SGPT) 17 U/L (12-78) 132 U/L (12-78) H Alkaline Phosphatase 88 U/L (46-116) 149 U/L (46-116) H Total Creatine Kinase 151 U/L (26-308) Creatine Kinase MB 1.7 NG/ML (0.0-3.6) Creatine Kinase MB Relative Index 1.1 Troponin I 0.005 ng/mL (0.000-0.056) 0.000 ng/mL (0.000-0.056) Total Protein 8.1 G/DL (6.4-8.2) 7.2 G/DL (6.4-8.2) Albumin 3.5 G/DL (3.4-5.0) 3.1 G/DL (3.4-5.0) L Globulin 4.6 g/dL 4.1 g/dL Albumin/Globulin Ratio 0.8 (1.0-2.7) L 0.8 (1.0-2.7) L Urine Color Pale yellow Urine Appearance Slightly cloudy Urine pH 6 (4.5-8.0) Urine Specific [place] 1.015 (1.005-1.035) Urine Protein Negative (NEGATIVE) Urine Glucose (UA) Negative (NEGATIVE) Urine Ketones 2+ (NEGATIVE) H Urine Blood Negative (NEGATIVE) Urine Nitrite Negative (NEGATIVE) Urine Bilirubin Negative (NEGATIVE) Urine Urobilinogen Normal MG/DL (0.0-1.0) Urine Leukocyte Esterase 1+ (NEGATIVE) H Urine RBC 2-4 /HPF (0 - 2) H Urine WBC 5-10 /HPF (0 - 2) H Urine Squamous Epithelial Cells Few /LPF (NONE/OCC) Urine Amorphous Sediment Few /LPF (NONE) H Urine Bacteria Moderate /HPF (NONE) H Objective HEAD AND NECK: No JVD. LUNGS: Clear. CARDIOVASCULAR: Regular S1 and S2 with no gallop. ABDOMEN: Soft. EXTREMITIES: No pitting edema. NEUROLOGIC: She has left hemiplegia and upper extremity contractions. Sanket Tinsley MD May 04, 2018 10:42
[2018-05-04] MEDS ORDERED: Norco 5mg/325mg tab ORAL PRN ×2 (10:45→15:45)
--- NOTE | 2018-05-04 11:44 | Pulmonology Progress Note ---
Assessment/Plan Problems: (1) Acute bronchiolitis (2) Severe malnutrition (3) Constipation (4) Thalamic pain syndrome (5) Cerebrovascular accident with involvement of left side of body Assessment/Plan getting better all reviewed respiratory treatment check sputum titrate fio2 to sat of 92% GI evaluation dvt prophylaxis nutrition evaluation Subjective ROS Limited/Unobtainable: No Interval Events: c/o pain Allergies: Coded Allergies: NO KNOWN ALLERGIES (Unverified Allergy, Unknown, 04/30/15) Objective Last 24 Hour Vital Signs Date Time Temp Pulse Resp B/P (MAP) Pulse Ox O2 Delivery O2 Flow Rate FiO2 05/04/18 08:00 97.2 63 21 99/53 (68) 94 05/04/18 04:00 97.0 64 18 119/56 (77) 96 05/04/18 04:00 55 05/04/18 00:00 78 05/04/18 00:00 97.6 60 18 122/51 (74) 94 05/03/18 21:00 Room Air 05/03/18 20:36 98.3 05/03/18 20:00 96.4 70 18 125/52 (76) 96 05/03/18 20:00 59 05/03/18 15:22 62 05/03/18 14:27 Room Air 05/03/18 13:30 98.3 84 17 132/75 95 Room Air 97 05/03/18 13:30 98.3 84 17 132/75 95 Room Air 05/03/18 12:59 97.2 Intake and Output 05/03/18 05/04/18 18:59 06:59 Intake Total 300 ml Balance 300 ml Intake Oral 300 ml # Voids 2 1 General Appearance: WD/WN HEENT: normocephalic, atraumatic Respiratory/Chest: chest wall non-tender, lungs clear, normal breath sounds Breasts: no masses Cardiovascular: normal peripheral pulses Abdomen: normal bowel sounds Genitourinary: normal external genitalia Neurologic/Psychiatric: provider education specialist II-XII grossly normal Lymphatic: no neck adenopathy Laboratory Tests 05/03/18 12:15: White Blood Count 6.9, Red Blood Count 3.93L, Hemoglobin 11.3L, Hematocrit 36.2L , Mean Corpuscular Volume 92, Mean Corpuscular Hemoglobin 28.8, Mean Corpuscular Hemoglobin Concent 31.2L, Red Cell Distribution Width 11.6, Platelet Count 257, Mean Platelet Volume 6.3L, Neutrophils (%) (Auto) 64.8, Lymphocytes (%) (Auto) 26.3, Monocytes (%) (Auto) 7.0, Eosinophils (%) (Auto) 0.9, Basophils (%) (Auto) 1.1, Sodium Level 138, Potassium Level 4.6, Chloride Level 101, Carbon Dioxide Level 28, Anion Gap 9, Blood Urea Nitrogen 30H, Creatinine 1.1, Estimat Glomerular Filtration Rate , Glucose Level 84, Lactic Acid Level 1.00, Calcium Level 9.8, Total Bilirubin 0.6, Aspartate Amino Transf (AST/SGOT) 27, Alanine Aminotransferase (ALT/SGPT) 17, Alkaline Phosphatase 88, Total Creatine Kinase 151, Creatine Kinase MB 1.7, Creatine Kinase MB Relative Index 1.1, Troponin I 0.005, Total Protein 8.1, Albumin 3.5, Globulin 4.6, Albumin/Globulin Ratio 0.8L 05/03/18 15:30: Urine Color Pale yellow, Urine Appearance Slightly cloudy, Urine pH 6, Urine Specific [place] 1.015, Urine Protein Negative, Urine Glucose (UA) Negative, Urine Ketones 2+H, Urine Blood Negative, Urine Nitrite Negative, Urine Bilirubin Negative, Urine Urobilinogen Normal, Urine Leukocyte Esterase 1+H, Urine RBC 2-4H, Urine WBC 5-10H, Urine Squamous Epithelial Cells Few, Urine Amorphous Sediment FewH, Urine Bacteria ModerateH 05/04/18 07:26: White Blood Count 9.5, Red Blood Count 3.79L, Hemoglobin 11.1L, Hematocrit 35.1L , Mean Corpuscular Volume 93, Mean Corpuscular Hemoglobin 29.4, Mean Corpuscular Hemoglobin Concent 31.7L, Red Cell Distribution Width 11.8, Platelet Count 242, Mean Platelet Volume 6.5, Neutrophils (%) (Auto) 83.4H, Lymphocytes (%) (Auto) 9.9L, Monocytes (%) (Auto) 5.3, Eosinophils (%) (Auto) 1.1, Basophils (%) (Auto) 0.2, Sodium Level 137, Potassium Level 4.0, Chloride Level 103, Carbon Dioxide Level 24, Anion Gap 10, Blood Urea Nitrogen 21H, Creatinine 1.1, Estimat Glomerular Filtration Rate , Glucose Level 86, Calcium Level 8.9, Total Bilirubin 0.7, Aspartate Amino Transf (AST/SGOT) 153H, Alanine Aminotransferase (ALT/SGPT) 132H, Alkaline Phosphatase 149H, Troponin I 0.000, Total Protein 7.2, Albumin 3.1L, Globulin 4.1, Albumin/Globulin Ratio 0.8L Current Medications Medications (Trade) Dose Ordered Sig/Marilu Route PRN Reason Start Time Stop Time Status Last Admin Dose Admin Acetaminophen (Tylenol) 650 mg Q4H PRN ORAL T>100.5 05/03/18 12:30 06/02/18 12:29 Acetaminophen/ Hydrocodone Bitart ([place] 5/325) 1 tab Q6H PRN ORAL For Pain 05/04/18 10:45 05/11/18 10:44 Albuterol/ Ipratropium (Albuterol/ Ipratropium) 3 ml Q4H PRN HHN Shortness of Breath 05/03/18 12:30 05/08/18 12:29 Ceftriaxone Sodium 1 gm/ Dextrose 55 ml @ 110 mls/hr Q24H IVPB 05/04/18 10:00 05/11/18 09:59 05/04/18 09:35 Docusate Sodium (Colace) 100 mg TID ORAL 05/03/18 13:00 06/02/18 12:59 05/04/18 09:22 Heparin Sodium (Porcine) (Heparin 5000 units/ml) 5,000 units EVERY 12 HOURS SUBQ 05/03/18 21:00 06/02/18 20:59 05/04/18 09:26 Levothyroxine Sodium (Synthroid) 50 mcg DAILY@0630 ORAL 05/04/18 06:30 06/03/18 06:29 05/04/18 06:44 Morphine Sulfate (Morphine Sulfate) 2 mg Q4H PRN IVP Moderate Pain (Pain Scale 4-6) 05/03/18 12:30 05/10/18 12:29 05/04/18 06:57 Ondansetron HCl (Zofran) 4 mg Q6H PRN IVP Nausea & Vomiting 05/03/18 12:30 06/02/18 12:29 Phenazopyridine HCl (Pyridium) 100 mg DAILYPRN PRN ORAL dysuria/pain on urination 05/03/18 12:30 06/02/18 12:29 Polyethylene Glycol (Miralax) 17 gm BEDTIME ORAL 05/03/18 21:00 06/02/18 20:59 Polyethylene Glycol (Miralax) 17 gm DAILYPRN PRN ORAL Constipation 05/03/18 12:30 06/02/18 12:29 Temazepam (Restoril) 15 mg HSPRN PRN ORAL Insomnia 05/03/18 21:00 05/10/18 20:59 05/03/18 21:07 Amira Lawler MD May 04, 2018 11:44
[2018-05-04 12:00] VITALS: BP 123/57
--- NOTE | 2018-05-04 13:12 | General Progress Note ---
Assessment/Plan Problem List: (1) Cerebrovascular accident with involvement of left side of body ICD Codes: I63.9 - Cerebral infarction, unspecified SNOMED: 139008127 (2) Urinary tract infection ICD Codes: N39.0 - Urinary tract infection, site not specified SNOMED: 89621606 (3) Osteoarthritis of right knee ICD Codes: M17.9 - Osteoarthritis of knee, unspecified SNOMED: 978488357 (4) Osteoarthritis of left knee ICD Codes: M17.9 - Osteoarthritis of knee, unspecified SNOMED: 115534770 (5) Sacral decubitus ulcer, stage III ICD Codes: L89.153 - Pressure ulcer of sacral region, stage 3 SNOMED: 657674567, 048226142 (6) Anemia ICD Codes: D64.9 - Anemia, unspecified SNOMED: 023431825 (7) Severe malnutrition ICD Codes: E43 - Unspecified severe protein-calorie malnutrition SNOMED: 34014248 Status: stable, progressing Assessment/Plan pt diet abx cbc bmp am Subjective Constitutional: Reports: weakness Allergies: Coded Allergies: NO KNOWN ALLERGIES (Unverified Allergy, Unknown, 04/30/15) All Systems: reviewed and negative except above Subjective calm eating Objective Last 24 Hour Vital Signs Date Time Temp Pulse Resp B/P (MAP) Pulse Ox O2 Delivery O2 Flow Rate FiO2 05/04/18 12:00 97.5 69 22 123/57 (79) 96 05/04/18 12:00 69 05/04/18 08:00 59 05/04/18 08:00 97.2 63 21 99/53 (68) 94 05/04/18 04:00 97.0 64 18 119/56 (77) 96 05/04/18 04:00 55 05/04/18 00:00 78 05/04/18 00:00 97.6 60 18 122/51 (74) 94 05/03/18 21:00 Room Air 05/03/18 20:36 98.3 05/03/18 20:00 96.4 70 18 125/52 (76) 96 05/03/18 20:00 59 05/03/18 15:22 62 05/03/18 14:27 Room Air 05/03/18 13:30 98.3 84 17 132/75 95 Room Air 97 05/03/18 13:30 98.3 84 17 132/75 95 Room Air Intake and Output 05/03/18 05/04/18 18:59 06:59 Intake Total 300 ml Balance 300 ml Intake Oral 300 ml # Voids 2 1 Laboratory Tests 05/03/18 15:30: Urine Color Pale yellow, Urine Appearance Slightly cloudy, Urine pH 6, Urine Specific [place] 1.015, Urine Protein Negative, Urine Glucose (UA) Negative, Urine Ketones 2+H, Urine Blood Negative, Urine Nitrite Negative, Urine Bilirubin Negative, Urine Urobilinogen Normal, Urine Leukocyte Esterase 1+H, Urine RBC 2-4H, Urine WBC 5-10H, Urine Squamous Epithelial Cells Few, Urine Amorphous Sediment FewH, Urine Bacteria ModerateH 05/04/18 07:26: White Blood Count 9.5, Red Blood Count 3.79L, Hemoglobin 11.1L, Hematocrit 35.1L , Mean Corpuscular Volume 93, Mean Corpuscular Hemoglobin 29.4, Mean Corpuscular Hemoglobin Concent 31.7L, Red Cell Distribution Width 11.8, Platelet Count 242, Mean Platelet Volume 6.5, Neutrophils (%) (Auto) 83.4H, Lymphocytes (%) (Auto) 9.9L, Monocytes (%) (Auto) 5.3, Eosinophils (%) (Auto) 1.1, Basophils (%) (Auto) 0.2, Sodium Level 137, Potassium Level 4.0, Chloride Level 103, Carbon Dioxide Level 24, Anion Gap 10, Blood Urea Nitrogen 21H, Creatinine 1.1, Estimat Glomerular Filtration Rate , Glucose Level 86, Calcium Level 8.9, Total Bilirubin 0.7, Aspartate Amino Transf (AST/SGOT) 153H, Alanine Aminotransferase (ALT/SGPT) 132H, Alkaline Phosphatase 149H, Troponin I 0.000, Total Protein 7.2, Albumin 3.1L, Globulin 4.1, Albumin/Globulin Ratio 0.8L Height (Feet): 5 Height (Inches): 4.00 Weight (Pounds): 110 General Appearance: lethargic EENT: normal ENT inspection Neck: normal alignment Cardiovascular: normal peripheral pulses, normal rate, regular rhythm Respiratory/Chest: chest wall non-tender, lungs clear, normal breath sounds Abdomen: normal bowel sounds, non tender, soft Extremities: normal inspection Edema: no edema noted Arm (L), no edema noted Arm (R), no edema noted Leg (L), no edema noted Leg (R), no edema noted Pedal (L), no edema noted Pedal (R), no edema noted Generalized Neurologic: responsive, motor weakness Skin: normal pigmentation, warm/dry Olegario Dunaway DO May 04, 2018 13:12
[2018-05-04] MEDS ORDERED: Albuterol/Ipratropium 3ml neb HHN PRN (15:44)
[2018-05-04] MEDS ORDERED: Miralax 17gm pkt ORAL PRN (15:46)
[2018-05-04 16:00] VITALS: BP 122/54
[2018-05-04 20:00] VITALS: BP 129/59
[2018-05-04] MEDS: Miralax 17gm pkt ORAL SCH (20:24)
[2018-05-05 00:51] VITALS: BP 115/56
[2018-05-05 04:00] VITALS: BP 133/65
[2018-05-05] MEDS ORDERED: LORazepam 0.5mg tab ORAL PRN (04:15)
[2018-05-05] MEDS: Levothyroxine 25mcg tab ORAL SCH (05:33)
[2018-05-05] MEDS: Morphine Sulfate 2mg/ml Inj IVP PRN ×4 (05:34→20:44)
[2018-05-05 08:00] VITALS: BP 127/60
[2018-05-05] MEDS: Heparin 5000 units/ml inj SUBQ SCH ×2 (09:00→20:45)
[2018-05-05] MEDS: Docusate 100mg cap ORAL SCH ×3 (09:00→18:00)
--- NOTE | 2018-05-05 09:29 | Infectious Diseases Prog Note ---
Assessment/Plan Assessment/Plan Assessment/Plan Assessment/Plan Assessment/Plan 72 yo martha with PMHx of CVA wit residual left sided deficits, Anema, Arthritis and failure to thrive who was sent ot the ED from her nursinghome with increased legthargy and reprted fever. UTI UA positive Hx of fever at [facility] 05/03/18 UCx Mix GP organisms - Final result pending Aferbile No leukocytosis Hx of constipation/fecal impaction CVA wit residual left sided deficits HTN Hypothyroidism PLAN - Continue Ceftriaoxone #2/6 for UTI - 05/04/18 S/P Cefepime and Vancomycin - f/u Urine Cx - Monitor CBC and Temps - Monitor BMs We will continue to follow the patient during this hospitalization. Subjective Allergies: Coded Allergies: NO KNOWN ALLERGIES (Unverified Allergy, Unknown, 04/30/15) Subjective HEMAL Afebrile Labs pending Objective Vital Signs Last 24 Hour Vital Signs Date Time Temp Pulse Resp B/P (MAP) Pulse Ox O2 Delivery O2 Flow Rate FiO2 05/05/18 08:00 98.9 66 18 127/60 (82) 97 05/05/18 06:04 98.2 05/05/18 04:00 98.2 65 18 133/65 (87) 97 05/05/18 00:51 98.6 67 18 115/56 (75) 95 05/04/18 20:30 Room Air 05/04/18 20:26 67 18 Room Air 21 05/04/18 20:00 98.2 74 20 129/59 (82) 96 05/04/18 16:00 97.7 66 20 122/54 (76) 95 05/04/18 12:47 97.2 05/04/18 12:00 97.5 69 22 123/57 (79) 96 05/04/18 12:00 69 Height (Feet): 5 Height (Inches): 4.00 Weight (Pounds): 110 Objective Gen: NAD, Thin HEENT: NCAT, MMM, EOMI, PERRL, No Oral lesion, no scleral icterus NECK: full range of motion, supple, no meningismus, No LAD, No JVD LUNGS: CTAB, No W/C, No Accessory muscle use CARDS: RRR, S1, S2, No M/R/G, ABD: Soft, NT, ND, No R/G, + BS, No HSM, No Masses : Deferred Ext: C/C/E, Pulses 2+ B/L (DP, Rad): NEURO: A/O x 3, Decreased strength left side PSYCH: Mood/affect normal SKIN: Warm/dry, No rashes Microbiology Date/Time Source Procedure Growth Status 05/03/18 12:30 Blood Blood Culture - Preliminary NO GROWTH AFTER 24 HOURS Resulted 05/03/18 12:15 Blood Blood Culture - Preliminary NO GROWTH AFTER 24 HOURS Resulted 05/03/18 15:30 Urine,Clean Catch Urine Culture - Preliminary Mixed Gram Positive Organism Resulted Current Medications Medications (Trade) Dose Ordered Sig/Marilu Route PRN Reason Start Time Stop Time Status Last Admin Dose Admin Acetaminophen (Tylenol) 650 mg Q4H PRN ORAL T>100.5 05/04/18 15:44 06/02/18 15:43 Acetaminophen/ Hydrocodone Bitart ([place] 5/325) 1 tab Q6H PRN ORAL For Pain 05/04/18 15:45 05/11/18 15:44 Albuterol/ Ipratropium (Albuterol/ Ipratropium) 3 ml Q4H PRN HHN Shortness of Breath 05/04/18 15:44 05/08/18 15:43 Ceftriaxone Sodium 1 gm/ Dextrose 55 ml @ 110 mls/hr Q24H IVPB 05/05/18 10:00 05/11/18 09:59 Docusate Sodium (Colace) 100 mg TID ORAL 05/04/18 18:00 06/02/18 12:59 Heparin Sodium (Porcine) (Heparin 5000 units/ml) 5,000 units EVERY 12 HOURS SUBQ 05/04/18 21:00 06/02/18 20:59 Levothyroxine Sodium (Synthroid) 50 mcg DAILY@0630 ORAL 05/05/18 06:30 06/03/18 06:29 05/05/18 05:33 Lorazepam (Ativan) 0.5 mg Q6H PRN ORAL For Anxiety 05/05/18 04:15 05/12/18 04:14 Mirtazapine (Remeron) 7.5 mg BEDTIME ORAL 05/05/18 21:00 06/04/18 20:59 Morphine Sulfate (Morphine Sulfate) 2 mg Q4H PRN IVP Moderate Pain (Pain Scale 4-6) 05/04/18 16:30 05/10/18 12:29 05/05/18 05:34 Ondansetron HCl (Zofran) 4 mg Q6H PRN IVP Nausea & Vomiting 05/04/18 18:30 06/02/18 12:29 Phenazopyridine HCl (Pyridium) 100 mg DAILYPRN PRN ORAL dysuria/pain on urination 05/04/18 15:45 06/03/18 15:44 Polyethylene Glycol (Miralax) 17 gm BEDTIME ORAL 05/04/18 21:00 06/02/18 20:59 Polyethylene Glycol (Miralax) 17 gm DAILYPRN PRN ORAL Constipation 05/04/18 15:46 06/03/18 15:45 Temazepam (Restoril) 15 mg HSPRN PRN ORAL Insomnia 05/04/18 21:00 05/10/18 20:59 05/04/18 21:03 Michel Santos MD May 05, 2018 09:29
[2018-05-05] MEDS: cefTRIAXone 1 GM in D5W 55 ML IVPB SCH (10:07)
[2018-05-05 10:36] LABS: BASOPHILS % (AUTO) 0.6 % (0.0-2.0); EOSINOPHILS % (AUTO) 3.8 % (0.0-3.0); HEMATOCRIT 35.8 % (37.0-47.0); HEMOGLOBIN 11.2 G/DL (12.0-16.0); LYMPHOCYTES % (AUTO) 34.7 % (20.0-45.0); MEAN CORPUSCULAR VOLUME 93 FL (80-99); MONOCYTES % (AUTO) 8.4 % (1.0-10.0); NEUTROPHILS % (AUTO) 52.5 % (45.0-75.0); PLATELET COUNT 258 K/UL (150-450); RED BLOOD COUNT 3.84 M/UL (4.20-5.40); RED CELL DISTRIBUTION WIDTH 11.9 % (11.6-14.8); WHITE BLOOD COUNT 5.4 K/UL (4.8-10.8)
[2018-05-05 10:46] LABS: ANION GAP 8 mmol/L (5-15); BLOOD UREA NITROGEN 17 mg/dL (7-18); CALCIUM 9.2 MG/DL (8.5-10.1); CARBON DIOXIDE 28 MMOL/L (21-32); CHLORIDE 105 MMOL/L (98-107); POTASSIUM 3.8 MMOL/L (3.5-5.1); SODIUM 141 MMOL/L (136-145)
[2018-05-05 12:00] VITALS: BP 140/73
--- NOTE | 2018-05-05 12:12 | General Progress Note ---
Assessment/Plan Problem List: (1) Cerebrovascular accident with involvement of left side of body ICD Codes: I63.9 - Cerebral infarction, unspecified SNOMED: 256620727 (2) Urinary tract infection ICD Codes: N39.0 - Urinary tract infection, site not specified SNOMED: 46208997 (3) Osteoarthritis of right knee ICD Codes: M17.9 - Osteoarthritis of knee, unspecified SNOMED: 836155827 (4) Osteoarthritis of left knee ICD Codes: M17.9 - Osteoarthritis of knee, unspecified SNOMED: 788781125 (5) Sacral decubitus ulcer, stage III ICD Codes: L89.153 - Pressure ulcer of sacral region, stage 3 SNOMED: 457458910, 582760390 (6) Anemia ICD Codes: D64.9 - Anemia, unspecified SNOMED: 618642134 (7) Severe malnutrition ICD Codes: E43 - Unspecified severe protein-calorie malnutrition SNOMED: 33670965 Status: stable, progressing Assessment/Plan pt diet abx dc if clear Subjective Constitutional: Reports: weakness Allergies: Coded Allergies: NO KNOWN ALLERGIES (Unverified Allergy, Unknown, 04/30/15) All Systems: reviewed and negative except above Subjective sl anxious in bed Objective Last 24 Hour Vital Signs Date Time Temp Pulse Resp B/P (MAP) Pulse Ox O2 Delivery O2 Flow Rate FiO2 05/05/18 10:51 98.9 05/05/18 09:00 Room Air 05/05/18 08:00 98.9 66 18 127/60 (82) 97 05/05/18 04:00 98.2 65 18 133/65 (87) 97 05/05/18 00:51 98.6 67 18 115/56 (75) 95 05/04/18 20:30 Room Air 05/04/18 20:26 67 18 Room Air 21 05/04/18 20:00 98.2 74 20 129/59 (82) 96 05/04/18 16:00 97.7 66 20 122/54 (76) 95 05/04/18 12:47 97.2 Intake and Output 05/04/18 05/05/18 19:00 07:00 Intake Total 120 ml Balance 120 ml Intake Oral 120 ml # Voids 1 3 Laboratory Tests 05/05/18 08:50: White Blood Count 5.4, Red Blood Count 3.84L, Hemoglobin 11.2L, Hematocrit 35.8L , Mean Corpuscular Volume 93, Mean Corpuscular Hemoglobin 29.0, Mean Corpuscular Hemoglobin Concent 31.1L, Red Cell Distribution Width 11.9, Platelet Count 258, Mean Platelet Volume 6.5, Neutrophils (%) (Auto) 52.5, Lymphocytes (%) (Auto) 34.7, Monocytes (%) (Auto) 8.4, Eosinophils (%) (Auto) 3.8H, Basophils (%) (Auto) 0.6, Sodium Level 141, Potassium Level 3.8, Chloride Level 105, Carbon Dioxide Level 28, Anion Gap 8, Blood Urea Nitrogen 17, Creatinine 1.0, Estimat Glomerular Filtration Rate , Glucose Level 71L, Calcium Level 9.2, Hepatitis A IgM Antibody [Pending], Hepatitis B Surface Antigen [ Pending], Hepatitis B Core IgM Antibody [Pending], Hepatitis C Antibody [Pending ] Height (Feet): 5 Height (Inches): 4.00 Weight (Pounds): 110 General Appearance: alert EENT: normal ENT inspection Neck: normal alignment Cardiovascular: normal peripheral pulses, normal rate, regular rhythm Respiratory/Chest: chest wall non-tender, lungs clear, normal breath sounds Abdomen: normal bowel sounds, non tender, soft Extremities: normal inspection Edema: no edema noted Arm (L), no edema noted Arm (R), no edema noted Leg (L), no edema noted Leg (R), no edema noted Pedal (L), no edema noted Pedal (R), no edema noted Generalized Neurologic: motor weakness Skin: normal pigmentation, warm/dry Olegario Dunaway DO May 05, 2018 12:12
--- NOTE | 2018-05-05 13:23 | GI Progress Note ---
Assessment/Plan Problems: (1) Constipation ICD Codes: K59.00 - Constipation, unspecified SNOMED: 57726055 (2) Anemia ICD Codes: D64.9 - Anemia, unspecified SNOMED: 302229578 (3) Fecal impaction ICD Codes: K56.41 - Fecal impaction SNOMED: 18094038 (4) Abdominal pain ICD Codes: R10.9 - Unspecified abdominal pain SNOMED: 59548283 (5) Severe malnutrition ICD Codes: E43 - Unspecified severe protein-calorie malnutrition SNOMED: 63366205 Status: stable Status Narrative Discussed with Dr. Albert. Assessment/Plan new onset of transaminitis, fu abdominal US and hepatitis panel Recent history of endoscopic colonoscopy was last year, noted with unremarkable findings advance to regular diet Begin the patient on a bowel regimen given history of severe constipation Anemia workup reviewed from prior admission OB stool to rule out GI bleed PPI Follow-up chest x-ray Prophylactic antibiotics fu labs, trend LFTs dc planning The patient was seen and examined at bedside and all new and available data was reviewed in the patients chart. I agree with the above findings, impression and plan. (Patient seen earlier today. Signature stamp does not reflect patient encounter time.). - Luiz Albert MD Subjective Subjective denies abdominal pain Tolerating diet Refusing care Objective Last 24 Hour Vital Signs Date Time Temp Pulse Resp B/P (MAP) Pulse Ox O2 Delivery O2 Flow Rate FiO2 05/05/18 12:00 99.2 73 18 140/73 (95) 94 05/05/18 10:51 98.9 05/05/18 09:00 Room Air 05/05/18 08:00 98.9 66 18 127/60 (82) 97 05/05/18 04:00 98.2 65 18 133/65 (87) 97 05/05/18 00:51 98.6 67 18 115/56 (75) 95 05/04/18 20:30 Room Air 05/04/18 20:26 67 18 Room Air 21 05/04/18 20:00 98.2 74 20 129/59 (82) 96 05/04/18 16:00 97.7 66 20 122/54 (76) 95 Intake and Output 05/04/18 05/05/18 19:00 07:00 Intake Total 120 ml Balance 120 ml Intake Oral 120 ml # Voids 1 3 Laboratory Tests Test 05/05/18 08:50 White Blood Count 5.4 K/UL (4.8-10.8) Red Blood Count 3.84 M/UL (4.20-5.40) L Hemoglobin 11.2 G/DL (12.0-16.0) L Hematocrit 35.8 % (37.0-47.0) L Mean Corpuscular Volume 93 FL (80-99) Mean Corpuscular Hemoglobin 29.0 PG (27.0-31.0) Mean Corpuscular Hemoglobin Concent 31.1 G/DL (32.0-36.0) L Red Cell Distribution Width 11.9 % (11.6-14.8) Platelet Count 258 K/UL (150-450) Mean Platelet Volume 6.5 FL (6.5-10.1) Neutrophils (%) (Auto) 52.5 % (45.0-75.0) Lymphocytes (%) (Auto) 34.7 % (20.0-45.0) Monocytes (%) (Auto) 8.4 % (1.0-10.0) Eosinophils (%) (Auto) 3.8 % (0.0-3.0) H Basophils (%) (Auto) 0.6 % (0.0-2.0) Sodium Level 141 MMOL/L (136-145) Potassium Level 3.8 MMOL/L (3.5-5.1) Chloride Level 105 MMOL/L (98-107) Carbon Dioxide Level 28 MMOL/L (21-32) Anion Gap 8 mmol/L (5-15) Blood Urea Nitrogen 17 mg/dL (7-18) Creatinine 1.0 MG/DL (0.55-1.30) Estimat Glomerular Filtration Rate mL/min (>60) Glucose Level 71 MG/DL (74-106) L Calcium Level 9.2 MG/DL (8.5-10.1) Hepatitis A IgM Antibody Pending Hepatitis B Surface Antigen Pending Hepatitis B Core IgM Antibody Pending Hepatitis C Antibody Pending Height (Feet): 5 Height (Inches): 4.00 Weight (Pounds): 110 General Appearance: no apparent distress, thin Cardiovascular: normal rate Respiratory/Chest: normal breath sounds, no respiratory distress Abdominal Exam: normal bowel sounds, non tender, soft Extremities: non-tender Santiago,Elena-Shree [employer] May 05, 2018 13:23
--- NOTE | 2018-05-05 14:11 | Pulmonology Progress Note ---
Assessment/Plan Problems: (1) Acute bronchiolitis (2) Severe malnutrition (3) Constipation (4) Thalamic pain syndrome (5) Cerebrovascular accident with involvement of left side of body Assessment/Plan less short of breath getting better all reviewed respiratory treatment check sputum titrate fio2 to sat of 92% GI evaluation dvt prophylaxis nutrition evaluation Subjective ROS Limited/Unobtainable: No Constitutional: Reports: no symptoms HEENT: Repors: no symptoms Respiratory: Reports: no symptoms Allergies: Coded Allergies: NO KNOWN ALLERGIES (Unverified Allergy, Unknown, 04/30/15) Objective Last 24 Hour Vital Signs Date Time Temp Pulse Resp B/P (MAP) Pulse Ox O2 Delivery O2 Flow Rate FiO2 05/05/18 12:00 99.2 73 18 140/73 (95) 94 05/05/18 10:51 98.9 05/05/18 09:00 Room Air 05/05/18 08:00 98.9 66 18 127/60 (82) 97 05/05/18 04:00 98.2 65 18 133/65 (87) 97 05/05/18 00:51 98.6 67 18 115/56 (75) 95 05/04/18 20:30 Room Air 05/04/18 20:26 67 18 Room Air 21 05/04/18 20:00 98.2 74 20 129/59 (82) 96 05/04/18 16:00 97.7 66 20 122/54 (76) 95 Intake and Output 05/04/18 05/05/18 19:00 07:00 Intake Total 120 ml Balance 120 ml Intake Oral 120 ml # Voids 1 3 Objective General Appearance: WD/WN HEENT: normocephalic, atraumatic Respiratory/Chest: chest wall non-tender, lungs clear Cardiovascular: normal peripheral pulses, normal rate Abdomen: normal bowel sounds, soft, non tender Extremities: no cyanosis Microbiology Date/Time Source Procedure Growth Status 05/03/18 12:30 Blood Blood Culture - Preliminary NO GROWTH AFTER 24 HOURS Resulted 05/03/18 12:15 Blood Blood Culture - Preliminary NO GROWTH AFTER 24 HOURS Resulted 05/03/18 15:30 Urine,Clean Catch Urine Culture - Preliminary Mixed Gram Positive Organism Resulted 05/03/18 12:45 Rectum VRE Culture - Final NO VANCOMYCIN RESISTANT ENTEROCOCCUS ... Complete 05/03/18 12:45 Rectum - Final NO CARBAPENEM-RESISTANT ENTEROBACTERI... Complete Laboratory Tests 05/05/18 08:50: White Blood Count 5.4, Red Blood Count 3.84L, Hemoglobin 11.2L, Hematocrit 35.8L , Mean Corpuscular Volume 93, Mean Corpuscular Hemoglobin 29.0, Mean Corpuscular Hemoglobin Concent 31.1L, Red Cell Distribution Width 11.9, Platelet Count 258, Mean Platelet Volume 6.5, Neutrophils (%) (Auto) 52.5, Lymphocytes (%) (Auto) 34.7, Monocytes (%) (Auto) 8.4, Eosinophils (%) (Auto) 3.8H, Basophils (%) (Auto) 0.6, Sodium Level 141, Potassium Level 3.8, Chloride Level 105, Carbon Dioxide Level 28, Anion Gap 8, Blood Urea Nitrogen 17, Creatinine 1.0, Estimat Glomerular Filtration Rate , Glucose Level 71L, Calcium Level 9.2, Hepatitis A IgM Antibody [Pending], Hepatitis B Surface Antigen [ Pending], Hepatitis B Core IgM Antibody [Pending], Hepatitis C Antibody [Pending ] Current Medications Medications (Trade) Dose Ordered Sig/Marilu Route PRN Reason Start Time Stop Time Status Last Admin Dose Admin Acetaminophen (Tylenol) 650 mg Q4H PRN ORAL T>100.5 05/04/18 15:44 06/02/18 15:43 Acetaminophen/ Hydrocodone Bitart ([place] 5/325) 1 tab Q6H PRN ORAL For Pain 05/04/18 15:45 05/11/18 15:44 Albuterol/ Ipratropium (Albuterol/ Ipratropium) 3 ml Q4H PRN HHN Shortness of Breath 05/04/18 15:44 05/08/18 15:43 Ceftriaxone Sodium 1 gm/ Dextrose 55 ml @ 110 mls/hr Q24H IVPB 05/05/18 10:00 05/11/18 09:59 05/05/18 10:07 Docusate Sodium (Colace) 100 mg TID ORAL 05/04/18 18:00 06/02/18 12:59 Heparin Sodium (Porcine) (Heparin 5000 units/ml) 5,000 units EVERY 12 HOURS SUBQ 05/04/18 21:00 06/02/18 20:59 Levothyroxine Sodium (Synthroid) 50 mcg DAILY@0630 ORAL 05/05/18 06:30 06/03/18 06:29 05/05/18 05:33 Lorazepam (Ativan) 0.5 mg Q6H PRN ORAL For Anxiety 05/05/18 04:15 05/12/18 04:14 Mirtazapine (Remeron) 7.5 mg BEDTIME ORAL 05/05/18 21:00 06/04/18 20:59 Morphine Sulfate (Morphine Sulfate) 2 mg Q4H PRN IVP Moderate Pain (Pain Scale 4-6) 05/04/18 16:30 05/10/18 12:29 05/05/18 10:21 Ondansetron HCl (Zofran) 4 mg Q6H PRN IVP Nausea & Vomiting 05/04/18 18:30 06/02/18 12:29 Phenazopyridine HCl (Pyridium) 100 mg DAILYPRN PRN ORAL dysuria/pain on urination 05/04/18 15:45 06/03/18 15:44 Polyethylene Glycol (Miralax) 17 gm BEDTIME ORAL 05/04/18 21:00 06/02/18 20:59 Polyethylene Glycol (Miralax) 17 gm DAILYPRN PRN ORAL Constipation 05/04/18 15:46 06/03/18 15:45 Temazepam (Restoril) 15 mg HSPRN PRN ORAL Insomnia 05/04/18 21:00 05/10/18 20:59 05/04/18 21:03 Amira Lawler MD May 05, 2018 14:11
--- NOTE | 2018-05-05 14:26 | Cardiac Electrophysiology PN ---
Assessment/Plan Assessment/Plan 1. Weakness. Troponins are negative. No CP or SOB 2. Hypertension. On p.r.n. clonidine. Stable off antihypertensives. 3. CVA with left hemiplegia. 4. Hypothyroidism, on Synthroid. 5. Possible pneumonia, on antibiotic per Dr. Lawler. 6. Abd pain US today negative Subjective Subjective Feeling better. No CP or SOB. On NMB. DC planning in progress Objective Last 24 Hour Vital Signs Date Time Temp Pulse Resp B/P (MAP) Pulse Ox O2 Delivery O2 Flow Rate FiO2 05/05/18 12:00 99.2 73 18 140/73 (95) 94 05/05/18 10:51 98.9 05/05/18 09:00 Room Air 05/05/18 08:00 98.9 66 18 127/60 (82) 97 05/05/18 04:00 98.2 65 18 133/65 (87) 97 05/05/18 00:51 98.6 67 18 115/56 (75) 95 05/04/18 20:30 Room Air 05/04/18 20:26 67 18 Room Air 21 05/04/18 20:00 98.2 74 20 129/59 (82) 96 05/04/18 16:00 97.7 66 20 122/54 (76) 95 Intake and Output 05/04/18 05/05/18 19:00 07:00 Intake Total 120 ml Balance 120 ml Intake Oral 120 ml # Voids 1 3 Laboratory Tests Test 05/05/18 08:50 White Blood Count 5.4 K/UL (4.8-10.8) Red Blood Count 3.84 M/UL (4.20-5.40) L Hemoglobin 11.2 G/DL (12.0-16.0) L Hematocrit 35.8 % (37.0-47.0) L Mean Corpuscular Volume 93 FL (80-99) Mean Corpuscular Hemoglobin 29.0 PG (27.0-31.0) Mean Corpuscular Hemoglobin Concent 31.1 G/DL (32.0-36.0) L Red Cell Distribution Width 11.9 % (11.6-14.8) Platelet Count 258 K/UL (150-450) Mean Platelet Volume 6.5 FL (6.5-10.1) Neutrophils (%) (Auto) 52.5 % (45.0-75.0) Lymphocytes (%) (Auto) 34.7 % (20.0-45.0) Monocytes (%) (Auto) 8.4 % (1.0-10.0) Eosinophils (%) (Auto) 3.8 % (0.0-3.0) H Basophils (%) (Auto) 0.6 % (0.0-2.0) Sodium Level 141 MMOL/L (136-145) Potassium Level 3.8 MMOL/L (3.5-5.1) Chloride Level 105 MMOL/L (98-107) Carbon Dioxide Level 28 MMOL/L (21-32) Anion Gap 8 mmol/L (5-15) Blood Urea Nitrogen 17 mg/dL (7-18) Creatinine 1.0 MG/DL (0.55-1.30) Estimat Glomerular Filtration Rate mL/min (>60) Glucose Level 71 MG/DL (74-106) L Calcium Level 9.2 MG/DL (8.5-10.1) Hepatitis A IgM Antibody Pending Hepatitis B Surface Antigen Pending Hepatitis B Core IgM Antibody Pending Hepatitis C Antibody Pending Microbiology Date/Time Source Procedure Growth Status 05/03/18 12:30 Blood Blood Culture - Preliminary NO GROWTH AFTER 24 HOURS Resulted 05/03/18 12:15 Blood Blood Culture - Preliminary NO GROWTH AFTER 24 HOURS Resulted 05/03/18 15:30 Urine,Clean Catch Urine Culture - Preliminary Mixed Gram Positive Organism Resulted 05/03/18 12:45 Rectum VRE Culture - Final NO VANCOMYCIN RESISTANT ENTEROCOCCUS ... Complete 05/03/18 12:45 Rectum - Final NO CARBAPENEM-RESISTANT ENTEROBACTERI... Complete Objective HEAD AND NECK: No JVD. LUNGS: Clear. CARDIOVASCULAR: Regular S1 and S2 with no gallop. ABDOMEN: Soft. EXTREMITIES: No pitting edema. NEUROLOGIC: She has left hemiplegia and upper extremity contractions. Sanket Tinsley MD May 05, 2018 14:26
--- NOTE | 2018-05-05 15:49 | Diagnostic Imaging Report ---
Indication:Abdominal pain Technique: Grayscale and duplex Doppler imaging of the abdomen performed. Comparison: CT abdomen pelvis 01/20/2018 Findings: The examination is significantly limited as patient was not cooperative and relatively immobile. Partial visualization of the aorta shows mural calcification. The pancreatic duct is prominent in size. The demonstrated part of the pancreas is otherwise unremarkable. Portal vein is patent by Doppler examination. Liver is slightly inhomogeneous. There is no ascites. The gallbladder is absent. The intrahepatic biliary ducts are prominent. The CBD is 13 mm which is dilated. There are bilateral renal cysts present. The kidneys are not well seen in portions. Spleen is normal in size. IMPRESSION: Dilated biliary ducts. Similar findings noted on CT obtained 01/20/2018. Correlate clinically. If clinically warranted MRCP could be done to evaluate further. Status post cholecystectomy. Prominent main pancreatic duct also noted. This was also seen previously. Significant limitation with respect to visualization of anatomy on this study. Multiple bilateral renal cysts of varying size. Atherosclerotic disease
[2018-05-05 16:00] VITALS: BP 135/68
--- NOTE | 2018-05-05 16:00 | Consultation ---
DATE OF CONSULTATION: 05/05/2018 INITIAL PSYCHIATRIC CONSULTATION HISTORY OF PRESENT ILLNESS: This is a 72-year-old female patient who was admitted to [facility] secondary to generalized weakness and failure to thrive. I saw and assessed this patient in her room today, and apparently she has been having some altered mental status, confusion, worsened by stress of her medical illness she has been having some problems with depression and anxiety, and I was concerned because she had low blood pressure and failure to thrive as well as generalized weakness nursing facility. She has been losing weight and she has been having increased confusion and altered mental status. Cognition has declined below baseline. For this reason, because of the cognitive impairment, the attending physician has requested daily psychiatric consultation that the patient be seen by Psychiatry. I saw and assessed this patient at bedside today. She tells me, "Yes, I'm depressed because I've been in that place for 13 years and depressed," but she admitted there is some depression related to her lack of eating and loss of appetite. She has some slight insight into her condition as well. MEDICAL HISTORY: She has a history of CVA, anemia, arthritis, malnutrition and decubitus ulcers. ALLERGIES: She has no known drug allergies. PSYCHOTROPIC MEDICATIONS ON ADMISSION: She is not currently on any psychotropic medications, but she just thinks she was on antidepressant in the past. SUBSTANCE ABUSE HISTORY: Denies. PAIN ASSESSMENT: 07/02 pain. DEVELOPMENTAL PROBLEMS: Denies. SOCIAL HISTORY: She lives in [facility] nursing facility. Financially supported by [facility] and Medicare. STRENGTHS: She is motivated to get better and has a place to live. WEAKNESSES: She is impulsive and has minimal support system. MENTAL STATUS EXAMINATION: A 72-year-old female. Appearance is disheveled. Attitude, irritable and agitated. Affect, guarded and restricted. Intellect is poor because she does not know current events, does not know the last four presidents. Mood depressed and anxious. Motor activity, psychomotor agitation. Attention span is poor because she cannot do serial 7's or spell world backward. Orientation x2. She is oriented to person and place, but not to time or situation. Speech is normal volume and slurred. Thought process, slightly disorganized. Thought content, denies auditory or visual hallucinations. No delusion. Perception is good and she has no perceptual disturbances. Abstracting reasoning is poor because the patient does not understand proverbs, only has . The patient denies suicidal or homicidal ideation. Short-term memory, 2/3 of 3 word recall. So, poor short-term memory. Long-term memory is intact based on the knowledge of long-term events in her life such as high school that she went to. DIAGNOSES: 1. Major depressive disorder, mild, recurrent, without psychotic features. 2. Medical includes hypothyroidism, COPD, decubitus ulcers, arthritis, malnutrition, status post CVA. 3. Psychosocial stressors, financial. Her functional impairment is mild. PLAN: Plan for this patient, I am going to add a dose of Remeron 7.5 mg at bedtime to help with depression, anxiety, and also to help her increase her appetite so that she has less like to have failure to thrive. Also, I provided 20 minutes of cognitive behavioral therapy with the patient where we went over and identified her automatic negative thoughts and help to convert her automatic negative thought process to more positive thoughts to reduce depression, anxiety, and suicidality. also in addition to that, cognitive behavioral therapy was used to help her have more adaptive behavioral pattern. Chart reviewed. Discussed with staff. Seen and assessed in her room. I would like to thank Dr. Olegario Dunaway for this interesting consultation. Ute Perla M.D. DR: NITZA JOB#: [id number] CC:
[2018-05-05 20:00] VITALS: BP 146/77
[2018-05-05] MEDS: Miralax 17gm pkt ORAL SCH (20:45)
[2018-05-06] VITALS: BP 143/63
[2018-05-06 04:00] VITALS: BP 158/74
[2018-05-06] MEDS: Levothyroxine 25mcg tab ORAL SCH (06:42)
[2018-05-06 08:00] VITALS: BP 130/68
[2018-05-06 08:53] LABS: BASOPHILS % (AUTO) 0.7 % (0.0-2.0); EOSINOPHILS % (AUTO) 4.4 % (0.0-3.0); HEMATOCRIT 35.6 % (37.0-47.0); HEMOGLOBIN 11.1 G/DL (12.0-16.0); LYMPHOCYTES % (AUTO) 34.3 % (20.0-45.0); MEAN CORPUSCULAR VOLUME 94 FL (80-99); MONOCYTES % (AUTO) 6.8 % (1.0-10.0); NEUTROPHILS % (AUTO) 53.8 % (45.0-75.0); PLATELET COUNT 240 K/UL (150-450); RED CELL DISTRIBUTION WIDTH 12.1 % (11.6-14.8); WHITE BLOOD COUNT 5.6 K/UL (4.8-10.8)
[2018-05-06] MEDS: Heparin 5000 units/ml inj SUBQ SCH ×2 (09:00→21:00)
[2018-05-06] MEDS: Docusate 100mg cap ORAL SCH ×4 (09:00→17:35)
--- NOTE | 2018-05-06 09:05 | General Progress Note ---
Assessment/Plan Problem List: (1) Cerebrovascular accident with involvement of left side of body ICD Codes: I63.9 - Cerebral infarction, unspecified SNOMED: 144999410 (2) Urinary tract infection ICD Codes: N39.0 - Urinary tract infection, site not specified SNOMED: 17766451 (3) Osteoarthritis of right knee ICD Codes: M17.9 - Osteoarthritis of knee, unspecified SNOMED: 278084453 (4) Osteoarthritis of left knee ICD Codes: M17.9 - Osteoarthritis of knee, unspecified SNOMED: 865466252 (5) Sacral decubitus ulcer, stage III ICD Codes: L89.153 - Pressure ulcer of sacral region, stage 3 SNOMED: 185535262, 787965321 (6) Anemia ICD Codes: D64.9 - Anemia, unspecified SNOMED: 755938923 (7) Severe malnutrition ICD Codes: E43 - Unspecified severe protein-calorie malnutrition SNOMED: 26876772 (8) Sepsis ICD Codes: A41.9 - Sepsis, unspecified organism SNOMED: 69210671 Status: unchanged Assessment/Plan pt diet abx cbc bmp am dc if clear Subjective Constitutional: Reports: weakness Allergies: Coded Allergies: NO KNOWN ALLERGIES (Unverified Allergy, Unknown, 04/30/15) All Systems: reviewed and negative except above Subjective sl anxious in bed Objective Last 24 Hour Vital Signs Date Time Temp Pulse Resp B/P (MAP) Pulse Ox O2 Delivery O2 Flow Rate FiO2 05/06/18 08:00 98.8 70 18 130/68 (88) 97 05/06/18 04:00 98.2 69 20 158/74 (102) 97 05/06/18 00:00 98.3 64 20 143/63 (89) 96 05/05/18 21:00 Room Air 05/05/18 20:31 69 16 Room Air 21 05/05/18 20:00 98.3 72 20 146/77 (100) 97 05/05/18 16:57 99.2 05/05/18 16:00 98.8 68 18 135/68 (90) 96 05/05/18 12:00 99.2 73 18 140/73 (95) 94 Intake and Output 05/05/18 05/06/18 19:00 07:00 Intake Total 415 ml Balance 415 ml Intake Oral 360 ml IV Total 55 ml # Voids 2 Laboratory Tests 05/06/18 07:10: White Blood Count 5.6, Red Blood Count 3.80L, Hemoglobin 11.1L, Hematocrit 35.6L , Mean Corpuscular Volume 94, Mean Corpuscular Hemoglobin 29.2, Mean Corpuscular Hemoglobin Concent 31.1L, Red Cell Distribution Width 12.1, Platelet Count 240, Mean Platelet Volume 6.2L, Neutrophils (%) (Auto) 53.8, Lymphocytes (%) (Auto) 34.3, Monocytes (%) (Auto) 6.8, Eosinophils (%) (Auto) 4.4H, Basophils (%) (Auto) 0.7, Sodium Level [Pending], Potassium Level [Pending ], Chloride Level [Pending], Carbon Dioxide Level [Pending], Blood Urea Nitrogen [Pending], Creatinine [Pending], Estimat Glomerular Filtration Rate [ Pending], Glucose Level [Pending], Calcium Level [Pending] Height (Feet): 5 Height (Inches): 4.00 Weight (Pounds): 110 General Appearance: lethargic EENT: normal ENT inspection Neck: normal alignment Cardiovascular: normal peripheral pulses, normal rate, regular rhythm Respiratory/Chest: chest wall non-tender, lungs clear, normal breath sounds Abdomen: normal bowel sounds, non tender, soft Extremities: normal inspection Edema: no edema noted Arm (L), no edema noted Arm (R), no edema noted Leg (L), no edema noted Leg (R), no edema noted Pedal (L), no edema noted Pedal (R), no edema noted Generalized Neurologic: responsive, motor weakness Skin: normal pigmentation, warm/dry Olegario Dunaway DO May 06, 2018 09:05
[2018-05-06] MEDS: cefTRIAXone 1 GM in D5W 55 ML IVPB SCH (09:08)
[2018-05-06] MEDS: Morphine Sulfate 2mg/ml Inj IVP PRN ×3 (09:08→22:05)
[2018-05-06 09:28] LABS: ANION GAP 9 mmol/L (5-15); BLOOD UREA NITROGEN 16 mg/dL (7-18); CALCIUM 9.4 MG/DL (8.5-10.1); CARBON DIOXIDE 26 MMOL/L (21-32); CHLORIDE 105 MMOL/L (98-107); CREATININE 0.9 MG/DL (0.55-1.30); POTASSIUM 4.1 MMOL/L (3.5-5.1); SODIUM 140 MMOL/L (136-145)
--- NOTE | 2018-05-06 11:35 | Infectious Diseases Prog Note ---
Assessment/Plan Assessment/Plan Assessment/Plan 72 yo martha with PMHx of CVA wit residual left sided deficits, Anema, Arthritis and failure to thrive who was sent ot the ED from her nursinghome with increased legthargy and reprted fever. UTI UA positive Hx of fever at [facility] 05/03/18 UCx Mix GP organisms Aferbile No leukocytosis Elevated LFTs -Abd US: Dilated biliary ducts. Similar findings noted on CT obtained 2017. Correlate clinically. If clinically warranted MRCP could be done to evaluate further. Status post cholecystectomy. Prominent main pancreatic duct also noted. This was also seen previously. -acute hep panel neg Hx of constipation/fecal impaction CVA wit residual left sided deficits HTN Hypothyroidism PLAN - Continue Ceftriaxone #3/ for UTI - 05/04/18 S/P Cefepime and Vancomycin - f/u Urine Cx - Monitor CBC and Temps - Monitor BMs -GI f/u re elevated LFTs and bliary duct dilation -CMP am We will continue to follow the patient during this hospitalization. Subjective Allergies: Coded Allergies: NO KNOWN ALLERGIES (Unverified Allergy, Unknown, 04/30/15) Subjective afebrile no leukocytosis at rA Objective Vital Signs Last 24 Hour Vital Signs Date Time Temp Pulse Resp B/P (MAP) Pulse Ox O2 Delivery O2 Flow Rate FiO2 05/06/18 09:38 98.8 05/06/18 09:00 Room Air 05/06/18 08:00 98.8 70 18 130/68 (88) 97 05/06/18 04:00 98.2 69 20 158/74 (102) 97 05/06/18 00:00 98.3 64 20 143/63 (89) 96 05/05/18 21:00 Room Air 05/05/18 20:31 69 16 Room Air 21 05/05/18 20:00 98.3 72 20 146/77 (100) 97 05/05/18 16:00 98.8 68 18 135/68 (90) 96 05/05/18 12:00 99.2 73 18 140/73 (95) 94 Height (Feet): 5 Height (Inches): 4.00 Weight (Pounds): 110 Objective Gen: NAD, Thin HEENT: NCAT, MMM, EOMI, PERRL, No Oral lesion, no scleral icterus NECK: full range of motion, supple, no meningismus, No LAD, No JVD LUNGS: CTAB, No W/C, No Accessory muscle use CARDS: RRR, S1, S2, No M/R/G, ABD: Soft, NT, ND, No R/G, + BS, No HSM, No Masses : Deferred Ext: C/C/E, Pulses 2+ B/L (DP, Rad): NEURO: A/O x 3, Decreased strength left side PSYCH: Mood/affect normal SKIN: Warm/dry, No rashes Microbiology Date/Time Source Procedure Growth Status 05/03/18 12:30 Blood Blood Culture - Preliminary NO GROWTH AFTER 48 HOURS Resulted 05/03/18 12:15 Blood Blood Culture - Preliminary Staphylococcus Sp Coag Neg Resulted 05/03/18 15:30 Urine,Clean Catch Urine Culture - Final Mixed Gram Positive Organism Complete 05/03/18 12:45 Rectum VRE Culture - Final NO VANCOMYCIN RESISTANT ENTEROCOCCUS ... Complete 05/03/18 12:45 Rectum - Final NO CARBAPENEM-RESISTANT ENTEROBACTERI... Complete Laboratory Tests Test 05/06/18 07:10 White Blood Count 5.6 K/UL (4.8-10.8) Red Blood Count 3.80 M/UL (4.20-5.40) L Hemoglobin 11.1 G/DL (12.0-16.0) L Hematocrit 35.6 % (37.0-47.0) L Mean Corpuscular Volume 94 FL (80-99) Mean Corpuscular Hemoglobin 29.2 PG (27.0-31.0) Mean Corpuscular Hemoglobin Concent 31.1 G/DL (32.0-36.0) L Red Cell Distribution Width 12.1 % (11.6-14.8) Platelet Count 240 K/UL (150-450) Mean Platelet Volume 6.2 FL (6.5-10.1) L Neutrophils (%) (Auto) 53.8 % (45.0-75.0) Lymphocytes (%) (Auto) 34.3 % (20.0-45.0) Monocytes (%) (Auto) 6.8 % (1.0-10.0) Eosinophils (%) (Auto) 4.4 % (0.0-3.0) H Basophils (%) (Auto) 0.7 % (0.0-2.0) Sodium Level 140 MMOL/L (136-145) Potassium Level 4.1 MMOL/L (3.5-5.1) Chloride Level 105 MMOL/L (98-107) Carbon Dioxide Level 26 MMOL/L (21-32) Anion Gap 9 mmol/L (5-15) Blood Urea Nitrogen 16 mg/dL (7-18) Creatinine 0.9 MG/DL (0.55-1.30) Estimat Glomerular Filtration Rate mL/min (>60) Glucose Level 81 MG/DL (74-106) Calcium Level 9.4 MG/DL (8.5-10.1) Current Medications Medications (Trade) Dose Ordered Sig/Marilu Route PRN Reason Start Time Stop Time Status Last Admin Dose Admin Acetaminophen (Tylenol) 650 mg Q4H PRN ORAL T>100.5 05/04/18 15:44 06/02/18 15:43 Acetaminophen/ Hydrocodone Bitart ([place] 5/325) 1 tab Q6H PRN ORAL For Pain 05/04/18 15:45 05/11/18 15:44 Albuterol/ Ipratropium (Albuterol/ Ipratropium) 3 ml Q4H PRN HHN Shortness of Breath 05/04/18 15:44 05/08/18 15:43 Bisacodyl (Dulcolax) 10 mg DAILYPRN PRN RECTAL Constipation 05/06/18 09:15 06/05/18 09:14 05/06/18 10:11 Ceftriaxone Sodium 1 gm/ Dextrose 55 ml @ 110 mls/hr Q24H IVPB 05/05/18 10:00 05/11/18 09:59 05/06/18 09:08 Docusate Sodium (Colace) 100 mg TID ORAL 05/04/18 18:00 06/02/18 12:59 05/06/18 09:07 Heparin Sodium (Porcine) (Heparin 5000 units/ml) 5,000 units EVERY 12 HOURS SUBQ 05/04/18 21:00 06/02/18 20:59 Levothyroxine Sodium (Synthroid) 50 mcg DAILY@0630 ORAL 05/05/18 06:30 06/03/18 06:29 05/06/18 06:42 Lorazepam (Ativan) 0.5 mg Q6H PRN ORAL For Anxiety 05/05/18 04:15 05/12/18 04:14 Mirtazapine (Remeron) 7.5 mg BEDTIME ORAL 05/05/18 21:00 06/04/18 20:59 05/05/18 20:42 Morphine Sulfate (Morphine Sulfate) 2 mg Q4H PRN IVP Moderate Pain (Pain Scale 4-6) 05/04/18 16:30 05/10/18 12:29 05/06/18 09:08 Ondansetron HCl (Zofran) 4 mg Q6H PRN IVP Nausea & Vomiting 05/04/18 18:30 06/02/18 12:29 Phenazopyridine HCl (Pyridium) 100 mg DAILYPRN PRN ORAL dysuria/pain on urination 05/04/18 15:45 06/03/18 15:44 Polyethylene Glycol (Miralax) 17 gm BEDTIME ORAL 05/04/18 21:00 06/02/18 20:59 Polyethylene Glycol (Miralax) 17 gm DAILYPRN PRN ORAL Constipation 05/04/18 15:46 06/03/18 15:45 Temazepam (Restoril) 15 mg HSPRN PRN ORAL Insomnia 05/04/18 21:00 05/10/18 20:59 05/05/18 20:52 Tammi Alcantara M.D. May 06, 2018 11:35
--- NOTE | 2018-05-06 12:52 | Cardiac Electrophysiology PN ---
Assessment/Plan Assessment/Plan 1. Weakness. Troponins are negative. No CP or SOB 2. Hypertension. Stable off antihypertensives. 3. CVA with left hemiplegia. 4. Hypothyroidism, on Synthroid. 5. Possible pneumonia, on antibiotic per Dr. Lawler. 6. Abd pain US negative DW RN Subjective Subjective No events. No CP or SOB. DC planning. RN at bedside Objective Last 24 Hour Vital Signs Date Time Temp Pulse Resp B/P (MAP) Pulse Ox O2 Delivery O2 Flow Rate FiO2 05/06/18 09:38 98.8 05/06/18 09:00 Room Air 05/06/18 08:00 98.8 70 18 130/68 (88) 97 05/06/18 04:00 98.2 69 20 158/74 (102) 97 05/06/18 00:00 98.3 64 20 143/63 (89) 96 05/05/18 21:00 Room Air 05/05/18 20:31 69 16 Room Air 21 05/05/18 20:00 98.3 72 20 146/77 (100) 97 05/05/18 16:00 98.8 68 18 135/68 (90) 96 Intake and Output 05/05/18 05/06/18 19:00 07:00 Intake Total 415 ml Balance 415 ml Intake Oral 360 ml IV Total 55 ml # Voids 2 Laboratory Tests Test 05/06/18 07:10 White Blood Count 5.6 K/UL (4.8-10.8) Red Blood Count 3.80 M/UL (4.20-5.40) L Hemoglobin 11.1 G/DL (12.0-16.0) L Hematocrit 35.6 % (37.0-47.0) L Mean Corpuscular Volume 94 FL (80-99) Mean Corpuscular Hemoglobin 29.2 PG (27.0-31.0) Mean Corpuscular Hemoglobin Concent 31.1 G/DL (32.0-36.0) L Red Cell Distribution Width 12.1 % (11.6-14.8) Platelet Count 240 K/UL (150-450) Mean Platelet Volume 6.2 FL (6.5-10.1) L Neutrophils (%) (Auto) 53.8 % (45.0-75.0) Lymphocytes (%) (Auto) 34.3 % (20.0-45.0) Monocytes (%) (Auto) 6.8 % (1.0-10.0) Eosinophils (%) (Auto) 4.4 % (0.0-3.0) H Basophils (%) (Auto) 0.7 % (0.0-2.0) Sodium Level 140 MMOL/L (136-145) Potassium Level 4.1 MMOL/L (3.5-5.1) Chloride Level 105 MMOL/L (98-107) Carbon Dioxide Level 26 MMOL/L (21-32) Anion Gap 9 mmol/L (5-15) Blood Urea Nitrogen 16 mg/dL (7-18) Creatinine 0.9 MG/DL (0.55-1.30) Estimat Glomerular Filtration Rate mL/min (>60) Glucose Level 81 MG/DL (74-106) Calcium Level 9.4 MG/DL (8.5-10.1) Microbiology Date/Time Source Procedure Growth Status 05/03/18 15:30 Urine,Clean Catch Urine Culture - Final Mixed Gram Positive Organism Complete Objective HEAD AND NECK: No JVD. LUNGS: Clear. CARDIOVASCULAR: Regular S1 and S2 with no gallop. ABDOMEN: Soft. EXTREMITIES: No pitting edema. NEUROLOGIC: Left hemiplegia and upper extremity contractions. Sanket Tinsley MD May 06, 2018 12:52
[2018-05-06 16:00] VITALS: BP 147/67
[2018-05-06] MEDS ORDERED: Lisinopril 20mg tab ORAL SCH (18:00)
[2018-05-06 20:00] VITALS: BP 155/78
[2018-05-06] MEDS: Miralax 17gm pkt ORAL SCH (21:00)
--- NOTE | 2018-05-06 21:15 | Consultation ---
DATE OF CONSULTATION: 05/06/2018 CONSULTING PHYSICIAN: Ute Perla M.D. HISTORY OF PRESENT ILLNESS: The patient is a 72-year-old female patient with generalized weakness. The patient continues to have some confusion and depression worsened by stress of her medical illness. She does have generalized weakness she does have some depression and problems with insomnia and failure to thrive as well, and so that is why because her cognition has declined below the baseline, her attending has requested daily psychiatric consultation. MENTAL STATUS EXAMINATION: The patient is a 72-year-old female. Appearance is disheveled. Attitude, irritable and agitated. Affect, guarded and restricted. Intellect poor. Mood depressed and anxious. Motor activity, psychomotor agitation. Attention span is poor. Orientation x2. Speech is pressured. Thought process, disorganized and illogical. Thought content, auditory hallucinations and paranoid delusions. Insight and judgment is poor. DIAGNOSIS: Major depressive disorder, mild, recurrent, without psychotic features. PLAN: Treat her with Remeron 7.5 mg at bedtime to help her with depression and insomnia and also help her increase her appetite to eliminate her failure to thrive. 20 minutes of cognitive behavioral therapy to help her identify automatic negative thoughts and help her to convert those negative thoughts to more positive thoughts to reduce depression, anxiety, and suicidality. Chart reviewed and discussed with staff. Seen and assessed in the room. Ute Perla M.D. DR: NETTIE JOB#: [id number] CC:
--- NOTE | 2018-05-06 21:29 | Pulmonology Progress Note ---
Assessment/Plan Problems: (1) Acute bronchiolitis (2) Severe malnutrition (3) Constipation (4) Thalamic pain syndrome (5) Cerebrovascular accident with involvement of left side of body Assessment/Plan less short of breath getting better all reviewed respiratory treatment check sputum titrate fio2 to sat of 92% GI evaluation dvt prophylaxis nutrition evaluation Subjective Allergies: Coded Allergies: NO KNOWN ALLERGIES (Unverified Allergy, Unknown, 04/30/15) Objective Last 24 Hour Vital Signs Date Time Temp Pulse Resp B/P (MAP) Pulse Ox O2 Delivery O2 Flow Rate FiO2 05/06/18 20:47 65 18 Room Air 21 05/06/18 17:36 147/67 05/06/18 16:00 97.9 62 18 147/67 (93) 94 05/06/18 15:22 98.8 05/06/18 09:00 Room Air 05/06/18 08:00 98.8 70 18 130/68 (88) 97 05/06/18 04:00 98.2 69 20 158/74 (102) 97 05/06/18 00:00 98.3 64 20 143/63 (89) 96 Intake and Output 05/05/18 05/06/18 18:59 06:59 Intake Total 415 ml Balance 415 ml Intake Oral 360 ml IV Total 55 ml # Voids 2 Objective General Appearance: WD/WN HEENT: normocephalic, atraumatic Respiratory/Chest: chest wall non-tender, lungs clear Cardiovascular: normal peripheral pulses, normal rate Abdomen: normal bowel sounds, soft, non tender Extremities: no cyanosis Laboratory Tests 05/06/18 07:10: White Blood Count 5.6, Red Blood Count 3.80L, Hemoglobin 11.1L, Hematocrit 35.6L , Mean Corpuscular Volume 94, Mean Corpuscular Hemoglobin 29.2, Mean Corpuscular Hemoglobin Concent 31.1L, Red Cell Distribution Width 12.1, Platelet Count 240, Mean Platelet Volume 6.2L, Neutrophils (%) (Auto) 53.8, Lymphocytes (%) (Auto) 34.3, Monocytes (%) (Auto) 6.8, Eosinophils (%) (Auto) 4.4H, Basophils (%) (Auto) 0.7, Sodium Level 140, Potassium Level 4.1, Chloride Level 105, Carbon Dioxide Level 26, Anion Gap 9, Blood Urea Nitrogen 16, Creatinine 0.9, Estimat Glomerular Filtration Rate , Glucose Level 81, Calcium Level 9.4 Current Medications Medications (Trade) Dose Ordered Sig/Marilu Route PRN Reason Start Time Stop Time Status Last Admin Dose Admin Acetaminophen (Tylenol) 650 mg Q4H PRN ORAL T>100.5 05/04/18 15:44 06/02/18 15:43 Acetaminophen/ Hydrocodone Bitart ([place] 5/325) 1 tab Q6H PRN ORAL For Pain 05/04/18 15:45 05/11/18 15:44 Albuterol/ Ipratropium (Albuterol/ Ipratropium) 3 ml Q4H PRN HHN Shortness of Breath 05/04/18 15:44 05/08/18 15:43 Bisacodyl (Dulcolax) 10 mg DAILYPRN PRN RECTAL Constipation 05/06/18 09:15 06/05/18 09:14 05/06/18 10:11 Ceftriaxone Sodium 1 gm/ Dextrose 55 ml @ 110 mls/hr Q24H IVPB 05/05/18 10:00 05/11/18 09:59 05/06/18 09:08 Docusate Sodium (Colace) 100 mg TID ORAL 05/04/18 18:00 06/02/18 12:59 Heparin Sodium (Porcine) (Heparin 5000 units/ml) 5,000 units EVERY 12 HOURS SUBQ 05/04/18 21:00 06/02/18 20:59 Levothyroxine Sodium (Synthroid) 50 mcg DAILY@0630 ORAL 05/05/18 06:30 06/03/18 06:29 05/06/18 06:42 Lisinopril (Prinivil) 20 mg DAILY ORAL 05/07/18 09:00 06/06/18 08:59 Lorazepam (Ativan) 0.5 mg Q6H PRN ORAL For Anxiety 05/05/18 04:15 05/12/18 04:14 Mirtazapine (Remeron) 7.5 mg BEDTIME ORAL 05/05/18 21:00 06/04/18 20:59 05/05/18 20:42 Morphine Sulfate (Morphine Sulfate) 2 mg Q4H PRN IVP Moderate Pain (Pain Scale 4-6) 05/04/18 16:30 05/10/18 12:29 05/06/18 14:52 Ondansetron HCl (Zofran) 4 mg Q6H PRN IVP Nausea & Vomiting 05/04/18 18:30 06/02/18 12:29 Phenazopyridine HCl (Pyridium) 100 mg DAILYPRN PRN ORAL dysuria/pain on urination 05/04/18 15:45 06/03/18 15:44 Polyethylene Glycol (Miralax) 17 gm BEDTIME ORAL 05/04/18 21:00 06/02/18 20:59 Polyethylene Glycol (Miralax) 17 gm DAILYPRN PRN ORAL Constipation 05/04/18 15:46 06/03/18 15:45 Temazepam (Restoril) 15 mg HSPRN PRN ORAL Insomnia 05/04/18 21:00 05/10/18 20:59 05/05/18 20:52 Amria Lawler MD May 06, 2018 21:29
--- NOTE | 2018-05-06 23:00 | Consultation ---
DATE OF CONSULTATION: 05/05/2018 NOTE: POOR AUDIO PSYCHOTHERAPY CONSULTATION PROGRESS NOTE CONSULTING PHYSICIAN: Catrina Licea M.D. TREATING ATTENDING PHYSICIAN: Olegario Dunaway D.O. HISTORY OF PRESENT ILLNESS: The patient is a 72-year-old female patient, who was brought into the hospital for generalized weakness [facility]. The patient was anxiety, agitation, irritability and confusion, and for these reasons, the patient is referred for psychotherapy services patient. The patient insomnia. The patient states "I have insomnia and I any intermittent pain." She denies suicidal or homicidal thoughts of ideation. She denies any auditory or visual hallucinations. However, she states that she does have anxiety, dysphagia and she does feel . She is cooperative and is able to participate. The patient states she wants to back home to the nursing facility. She is cooperative. PAST MEDICAL HISTORY: Includes history of CVA, anemia, and arthritis. ALLERGIES: The patient has no known drug allergies. SUBSTANCE ABUSE HISTORY: The patient denies history of alcohol use, illicit substances, or smoking cigarettes. PSYCHIATRIC HISTORY: The patient states that she has a history of anxiety and depression. SOCIAL HISTORY: The patient is a 72-year-old female patient, currently lives . Financially sustained through [facility]. MENTAL STATUS EXAMINATION: The patient is alert and oriented to person, place, and time. Mood is irritable. Affect is congruent. Thought process, disorganized. She has poor attention and concentration. Poor insight, judgment, and impulse control. DIAGNOSES: 1. Generalized anxiety disorder, moderate without psychotic features. 2. Generalized anxiety disorder. PLAN: 1. This clinical assessed this patient. with supportive psychotherapy with . 2. addressing the patient's anxiety and depression. addressing the patient's negative automatic thoughts converting to positive coping skills and focusing on positive thoughts . Continue with management for this patient. This clinician has reviewed the patient's chart and discussed the treatment with treatment team. Catrina Licea PsyD. DR: AMANDEEP JOB#: [id number] CC:
[2018-05-07] VITALS (7 sets, daily range): BP systolic 122–163; BP diastolic 69–94
[2018-05-07] MEDS: Levothyroxine 25mcg tab ORAL SCH (06:27)
[2018-05-07] MEDS: Morphine Sulfate 2mg/ml Inj IVP PRN (06:28)
[2018-05-07 07:06] LABS: BASOPHILS % (AUTO) 0.9 % (0.0-2.0); EOSINOPHILS % (AUTO) 3.8 % (0.0-3.0); HEMATOCRIT 34.1 % (37.0-47.0); HEMOGLOBIN 11.1 G/DL (12.0-16.0); LYMPHOCYTES % (AUTO) 33.4 % (20.0-45.0); MEAN CORPUSCULAR VOLUME 91 FL (80-99); MONOCYTES % (AUTO) 9.1 % (1.0-10.0); NEUTROPHILS % (AUTO) 52.9 % (45.0-75.0); PLATELET COUNT 253 K/UL (150-450); RED BLOOD COUNT 3.75 M/UL (4.20-5.40); RED CELL DISTRIBUTION WIDTH 11.8 % (11.6-14.8); WHITE BLOOD COUNT 5.6 K/UL (4.8-10.8)
[2018-05-07 07:09] LABS: ALANINE AMINOTRANSFERASE 46 U/L (12-78); ALBUMIN/GLOBULIN RATIO 0.8 (1.0-2.7); ALKALINE PHOSPHATASE 99 U/L (46-116); ANION GAP 7 mmol/L (5-15); ASPARTATE AMINO TRANSFERASE 23 U/L (15-37); BILIRUBIN,TOTAL 0.5 MG/DL (0.2-1.0); BLOOD UREA NITROGEN 13 mg/dL (7-18); CALCIUM 9.3 MG/DL (8.5-10.1); CARBON DIOXIDE 29 MMOL/L (21-32); CHLORIDE 106 MMOL/L (98-107); CREATININE 0.8 MG/DL (0.55-1.30); POTASSIUM 3.8 MMOL/L (3.5-5.1); SODIUM 142 MMOL/L (136-145)
--- NOTE | 2018-05-07 08:15 | Progress Note ---
DATE: 05/07/2018 SUBJECTIVE: This patient is a 72-year-old female patient, came in for generalized weakness, but she continues to have some depression and anxiety and failure to thrive. That is why, the attending has requested daily psychiatric consultation. MENTAL STATUS EXAMINATION: The patient is a 72-year-old female. Appearance is disheveled. Attitude, irritable and agitated. Affect, guarded and restricted. Intellect poor. Mood depressed and anxious. Motor activity, psychomotor agitation. Attention span is poor. Orientation x2. Speech is low volume and slurred. Thought process is disorganized and illogical. Thought content, auditory hallucinations or paranoia. Insight and judgment is poor. DIAGNOSIS: Major depressive disorder, mild, recurrent, without psychotic features. PLAN: Treated with Remeron 7.5 mg at bedtime to reduce depression, anxiety, insomnia, and also help improve her appetite. Provided with 20 minutes of cognitive behavioral therapy to help her identify automatic negative thoughts and help her to convert those negative thoughts to more positive thoughts to reduce depression, anxiety, and suicidality. Chart reviewed. Discussed with staff. Seen and assessed in the room. A 20 minutes of cognitive behavioral therapy provided. Ute Perla M.D. DR: GERBER JOB#: [id number] CC:
[2018-05-07] MEDS: Heparin 5000 units/ml inj SUBQ SCH ×2 (09:00→21:00)
[2018-05-07] MEDS: Docusate 100mg cap ORAL SCH ×3 (09:00→18:00)
--- NOTE | 2018-05-07 10:05 | General Progress Note ---
Assessment/Plan Problem List: (1) Cerebrovascular accident with involvement of left side of body ICD Codes: I63.9 - Cerebral infarction, unspecified SNOMED: 355629468 (2) Urinary tract infection ICD Codes: N39.0 - Urinary tract infection, site not specified SNOMED: 76717991 (3) Osteoarthritis of right knee ICD Codes: M17.9 - Osteoarthritis of knee, unspecified SNOMED: 427648020 (4) Osteoarthritis of left knee ICD Codes: M17.9 - Osteoarthritis of knee, unspecified SNOMED: 501976438 (5) Sacral decubitus ulcer, stage III ICD Codes: L89.153 - Pressure ulcer of sacral region, stage 3 SNOMED: 021899403, 019050139 (6) Anemia ICD Codes: D64.9 - Anemia, unspecified SNOMED: 921005367 (7) Severe malnutrition ICD Codes: E43 - Unspecified severe protein-calorie malnutrition SNOMED: 64014773 (8) Sepsis ICD Codes: A41.9 - Sepsis, unspecified organism SNOMED: 32994842 Status: stable, progressing Assessment/Plan pt diet abx cbc bmp am dc if clear Subjective Constitutional: Reports: weakness Allergies: Coded Allergies: NO KNOWN ALLERGIES (Unverified Allergy, Unknown, 04/30/15) All Systems: reviewed and negative except above Subjective sl anxious in bed Objective Last 24 Hour Vital Signs Date Time Temp Pulse Resp B/P (MAP) Pulse Ox O2 Delivery O2 Flow Rate FiO2 05/07/18 07:03 61 18 Room Air 21 05/07/18 04:00 97.5 61 18 146/78 (100) 96 05/07/18 00:00 97.3 18 134/76 (95) 96 05/06/18 21:00 Room Air 05/06/18 20:47 65 18 Room Air 21 05/06/18 20:00 97.7 69 18 155/78 (103) 97 05/06/18 17:36 147/67 05/06/18 16:00 97.9 62 18 147/67 (93) 94 05/06/18 15:22 98.8 Intake and Output 05/06/18 05/07/18 19:00 07:00 Intake Total 775 ml 240 ml Balance 775 ml 240 ml Intake Oral 720 ml 240 ml IV Total 55 ml # Voids 3 1 # Bowel Movements 1 Laboratory Tests 05/07/18 05:45: White Blood Count 5.6, Red Blood Count 3.75L, Hemoglobin 11.1L, Hematocrit 34.1L , Mean Corpuscular Volume 91, Mean Corpuscular Hemoglobin 29.6, Mean Corpuscular Hemoglobin Concent 32.5, Red Cell Distribution Width 11.8, Platelet Count 253, Mean Platelet Volume 6.6, Neutrophils (%) (Auto) 52.9, Lymphocytes (% ) (Auto) 33.4, Monocytes (%) (Auto) 9.1, Eosinophils (%) (Auto) 3.8H, Basophils (%) (Auto) 0.9, Sodium Level 142, Potassium Level 3.8, Chloride Level 106, Carbon Dioxide Level 29, Anion Gap 7, Blood Urea Nitrogen 13, Creatinine 0.8, Estimat Glomerular Filtration Rate , Glucose Level 90, Calcium Level 9.3, Total Bilirubin 0.5, Aspartate Amino Transf (AST/SGOT) 23, Alanine Aminotransferase ( ALT/SGPT) 46, Alkaline Phosphatase 99, Total Protein 7.0, Albumin 3.0L, Globulin 4.0, Albumin/Globulin Ratio 0.8L Height (Feet): 5 Height (Inches): 4.00 Weight (Pounds): 110 General Appearance: lethargic EENT: normal ENT inspection Neck: normal alignment Cardiovascular: normal peripheral pulses, normal rate, regular rhythm Respiratory/Chest: chest wall non-tender, lungs clear, normal breath sounds Abdomen: normal bowel sounds, non tender, soft Extremities: normal inspection Edema: no edema noted Arm (L), no edema noted Arm (R), no edema noted Leg (L), no edema noted Leg (R), no edema noted Pedal (L), no edema noted Pedal (R), no edema noted Generalized Neurologic: motor weakness Skin: normal pigmentation, warm/dry Olegario Dunaway DO May 07, 2018 10:05
[2018-05-07] MEDS: cefTRIAXone 1 GM in D5W 55 ML IVPB SCH (10:59)
[2018-05-07] MEDS: Lisinopril 20mg tab ORAL SCH (10:59)
--- NOTE | 2018-05-07 14:14 | Cardiac Electrophysiology PN ---
Assessment/Plan Assessment/Plan 1. Weakness. Troponins are negative. No CP or SOB 2. Hypertension. Stable off antihypertensives. 3. CVA with left hemiplegia. 4. Hypothyroidism, on Synthroid. 5. Possible pneumonia, on antibiotic per Dr. Lawler. 6. Abd pain US negative DW RN Subjective Subjective No events. No CP or SOB. Objective Last 24 Hour Vital Signs Date Time Temp Pulse Resp B/P (MAP) Pulse Ox O2 Delivery O2 Flow Rate FiO2 05/07/18 12:00 98.1 65 16 147/73 (97) 96 05/07/18 10:59 144/94 05/07/18 10:12 144/94 (111) 05/07/18 09:00 Room Air 05/07/18 08:00 97.1 63 17 122/74 (90) 97 05/07/18 07:03 61 18 Room Air 21 05/07/18 04:00 97.5 61 18 146/78 (100) 96 05/07/18 00:00 97.3 18 134/76 (95) 96 05/06/18 21:00 Room Air 05/06/18 20:47 65 18 Room Air 21 05/06/18 20:00 97.7 69 18 155/78 (103) 97 05/06/18 17:36 147/67 05/06/18 16:00 97.9 62 18 147/67 (93) 94 05/06/18 15:22 98.8 Intake and Output 05/06/18 05/07/18 19:00 07:00 Intake Total 775 ml 240 ml Balance 775 ml 240 ml Intake Oral 720 ml 240 ml IV Total 55 ml # Voids 3 1 # Bowel Movements 1 Laboratory Tests Test 05/07/18 05:45 White Blood Count 5.6 K/UL (4.8-10.8) Red Blood Count 3.75 M/UL (4.20-5.40) L Hemoglobin 11.1 G/DL (12.0-16.0) L Hematocrit 34.1 % (37.0-47.0) L Mean Corpuscular Volume 91 FL (80-99) Mean Corpuscular Hemoglobin 29.6 PG (27.0-31.0) Mean Corpuscular Hemoglobin Concent 32.5 G/DL (32.0-36.0) Red Cell Distribution Width 11.8 % (11.6-14.8) Platelet Count 253 K/UL (150-450) Mean Platelet Volume 6.6 FL (6.5-10.1) Neutrophils (%) (Auto) 52.9 % (45.0-75.0) Lymphocytes (%) (Auto) 33.4 % (20.0-45.0) Monocytes (%) (Auto) 9.1 % (1.0-10.0) Eosinophils (%) (Auto) 3.8 % (0.0-3.0) H Basophils (%) (Auto) 0.9 % (0.0-2.0) Sodium Level 142 MMOL/L (136-145) Potassium Level 3.8 MMOL/L (3.5-5.1) Chloride Level 106 MMOL/L (98-107) Carbon Dioxide Level 29 MMOL/L (21-32) Anion Gap 7 mmol/L (5-15) Blood Urea Nitrogen 13 mg/dL (7-18) Creatinine 0.8 MG/DL (0.55-1.30) Estimat Glomerular Filtration Rate mL/min (>60) Glucose Level 90 MG/DL (74-106) Calcium Level 9.3 MG/DL (8.5-10.1) Total Bilirubin 0.5 MG/DL (0.2-1.0) Aspartate Amino Transf (AST/SGOT) 23 U/L (15-37) Alanine Aminotransferase (ALT/SGPT) 46 U/L (12-78) Alkaline Phosphatase 99 U/L (46-116) Total Protein 7.0 G/DL (6.4-8.2) Albumin 3.0 G/DL (3.4-5.0) L Globulin 4.0 g/dL Albumin/Globulin Ratio 0.8 (1.0-2.7) L Objective HEAD AND NECK: No JVD. LUNGS: Clear. CARDIOVASCULAR: Regular S1 and S2 with no gallop. ABDOMEN: Soft. EXTREMITIES: No pitting edema. NEUROLOGIC: Left hemiplegia and upper extremity contractions. Sanket Tinsley MD May 07, 2018 14:14
[2018-05-07] MEDS: Morphine Sulfate 4mg/ml Inj (IV/IM USE ONLY) IVP PRN ×2 (14:20→21:02)
--- NOTE | 2018-05-07 15:51 | Pulmonology Progress Note ---
Assessment/Plan Problems: (1) Acute bronchiolitis (2) Severe malnutrition (3) Constipation (4) Thalamic pain syndrome (5) Cerebrovascular accident with involvement of left side of body Assessment/Plan less short of breath getting better all reviewed respiratory treatment check sputum titrate fio2 to sat of 92% GI evaluation dvt prophylaxis nutrition evaluation Subjective Allergies: Coded Allergies: NO KNOWN ALLERGIES (Unverified Allergy, Unknown, 04/30/15) Objective Last 24 Hour Vital Signs Date Time Temp Pulse Resp B/P (MAP) Pulse Ox O2 Delivery O2 Flow Rate FiO2 05/07/18 12:00 98.1 65 16 147/73 (97) 96 05/07/18 10:59 144/94 05/07/18 10:12 144/94 (111) 05/07/18 09:00 Room Air 05/07/18 08:00 97.1 63 17 122/74 (90) 97 05/07/18 07:03 61 18 Room Air 21 05/07/18 04:00 97.5 61 18 146/78 (100) 96 05/07/18 00:00 97.3 18 134/76 (95) 96 05/06/18 21:00 Room Air 05/06/18 20:47 65 18 Room Air 21 05/06/18 20:00 97.7 69 18 155/78 (103) 97 05/06/18 17:36 147/67 05/06/18 16:00 97.9 62 18 147/67 (93) 94 Intake and Output 05/06/18 05/07/18 19:00 07:00 Intake Total 775 ml 240 ml Balance 775 ml 240 ml Intake Oral 720 ml 240 ml IV Total 55 ml # Voids 3 1 # Bowel Movements 1 Objective General Appearance: WD/WN HEENT: normocephalic, atraumatic Respiratory/Chest: chest wall non-tender, lungs clear Cardiovascular: normal peripheral pulses, normal rate Abdomen: normal bowel sounds, soft, non tender Extremities: no cyanosis Laboratory Tests 05/07/18 05:45: White Blood Count 5.6, Red Blood Count 3.75L, Hemoglobin 11.1L, Hematocrit 34.1L , Mean Corpuscular Volume 91, Mean Corpuscular Hemoglobin 29.6, Mean Corpuscular Hemoglobin Concent 32.5, Red Cell Distribution Width 11.8, Platelet Count 253, Mean Platelet Volume 6.6, Neutrophils (%) (Auto) 52.9, Lymphocytes (% ) (Auto) 33.4, Monocytes (%) (Auto) 9.1, Eosinophils (%) (Auto) 3.8H, Basophils (%) (Auto) 0.9, Sodium Level 142, Potassium Level 3.8, Chloride Level 106, Carbon Dioxide Level 29, Anion Gap 7, Blood Urea Nitrogen 13, Creatinine 0.8, Estimat Glomerular Filtration Rate , Glucose Level 90, Calcium Level 9.3, Total Bilirubin 0.5, Aspartate Amino Transf (AST/SGOT) 23, Alanine Aminotransferase ( ALT/SGPT) 46, Alkaline Phosphatase 99, Total Protein 7.0, Albumin 3.0L, Globulin 4.0, Albumin/Globulin Ratio 0.8L Current Medications Medications (Trade) Dose Ordered Sig/Marilu Route PRN Reason Start Time Stop Time Status Last Admin Dose Admin Acetaminophen (Tylenol) 650 mg Q4H PRN ORAL T>100.5 05/04/18 15:44 06/02/18 15:43 Acetaminophen/ Hydrocodone Bitart ([place] 5/325) 1 tab Q6H PRN ORAL For Pain 05/04/18 15:45 05/11/18 15:44 Albuterol/ Ipratropium (Albuterol/ Ipratropium) 3 ml Q4H PRN HHN Shortness of Breath 05/04/18 15:44 05/08/18 15:43 Bisacodyl (Dulcolax) 10 mg DAILYPRN PRN RECTAL Constipation 05/06/18 09:15 06/05/18 09:14 05/06/18 10:11 Ceftriaxone Sodium 1 gm/ Dextrose 55 ml @ 110 mls/hr Q24H IVPB 05/05/18 10:00 05/11/18 09:59 05/07/18 10:59 Docusate Sodium (Colace) 100 mg TID ORAL 05/04/18 18:00 06/02/18 12:59 Heparin Sodium (Porcine) (Heparin 5000 units/ml) 5,000 units EVERY 12 HOURS SUBQ 05/04/18 21:00 06/02/18 20:59 Levothyroxine Sodium (Synthroid) 50 mcg DAILY@0630 ORAL 05/05/18 06:30 06/03/18 06:29 05/07/18 06:27 Lisinopril (Prinivil) 20 mg DAILY ORAL 05/07/18 09:00 06/06/18 08:59 05/07/18 10:59 Lorazepam (Ativan) 0.5 mg Q6H PRN ORAL For Anxiety 05/05/18 04:15 05/12/18 04:14 Mirtazapine (Remeron) 7.5 mg BEDTIME ORAL 05/05/18 21:00 06/04/18 20:59 05/05/18 20:42 Morphine Sulfate (Morphine Sulfate) 2 mg Q4H PRN IVP Moderate Pain (Pain Scale 4-6) 05/07/18 14:15 05/10/18 12:29 05/07/18 14:20 Ondansetron HCl (Zofran) 4 mg Q6H PRN IVP Nausea & Vomiting 05/04/18 18:30 06/02/18 12:29 Phenazopyridine HCl (Pyridium) 100 mg DAILYPRN PRN ORAL dysuria/pain on urination 05/04/18 15:45 06/03/18 15:44 Polyethylene Glycol (Miralax) 17 gm BEDTIME ORAL 05/04/18 21:00 06/02/18 20:59 Polyethylene Glycol (Miralax) 17 gm DAILYPRN PRN ORAL Constipation 05/04/18 15:46 06/03/18 15:45 Temazepam (Restoril) 15 mg HSPRN PRN ORAL Insomnia 05/04/18 21:00 05/10/18 20:59 05/06/18 22:05 Amira Lawler MD May 07, 2018 15:51
[2018-05-07] MEDS: Miralax 17gm pkt ORAL SCH (21:00)
[2018-05-08] VITALS: BP 142/75
[2018-05-08 04:00] VITALS: BP 161/80
[2018-05-08] MEDS: Levothyroxine 25mcg tab ORAL SCH (06:21)
[2018-05-08] MEDS: Morphine Sulfate 4mg/ml Inj (IV/IM USE ONLY) IVP PRN ×2 (06:23→12:35)
[2018-05-08 08:00] VITALS: BP 157/88
[2018-05-08 08:22] LABS: BASOPHILS % (AUTO) 0.6 % (0.0-2.0); EOSINOPHILS % (AUTO) 2.2 % (0.0-3.0); HEMATOCRIT 33.4 % (37.0-47.0); HEMOGLOBIN 10.4 G/DL (12.0-16.0); LYMPHOCYTES % (AUTO) 27.5 % (20.0-45.0); MEAN CORPUSCULAR VOLUME 93 FL (80-99); MONOCYTES % (AUTO) 7.7 % (1.0-10.0); PLATELET COUNT 286 K/UL (150-450); RED BLOOD COUNT 3.58 M/UL (4.20-5.40); WHITE BLOOD COUNT 6.6 K/UL (4.8-10.8)
[2018-05-08 08:37] LABS: ANION GAP 9 mmol/L (5-15); BLOOD UREA NITROGEN 13 mg/dL (7-18); CALCIUM 9.5 MG/DL (8.5-10.1); CARBON DIOXIDE 26 MMOL/L (21-32); CHLORIDE 106 MMOL/L (98-107); CREATININE 0.7 MG/DL (0.55-1.30); POTASSIUM 4.1 MMOL/L (3.5-5.1); SODIUM 141 MMOL/L (136-145)
[2018-05-08] MEDS: Heparin 5000 units/ml inj SUBQ SCH (08:43)
[2018-05-08] MEDS: Lisinopril 20mg tab ORAL SCH (08:43)
[2018-05-08] MEDS: Docusate 100mg cap ORAL SCH ×3 (08:43→17:17)
[2018-05-08] MEDS: cefTRIAXone 1 GM in D5W 55 ML IVPB SCH (09:19)
--- NOTE | 2018-05-08 11:25 | Infectious Diseases Prog Note ---
Assessment/Plan Assessment/Plan Assessment/Plan 72 yo female with PMHx of CVA wit residual left sided deficits, Anema, Arthritis and failure to thrive who [facility] with [facility]argy and reported fever. UTI UA positive Hx of fever at jail 05/03/18 UCx Mix GP organisms Aferbile No leukocytosis Elevated LFTs, SP -Abd US: Dilated biliary ducts. Similar findings noted on CT obtained 2017. Correlate clinically. If clinically warranted MRCP could be done to evaluate further. Status post cholecystectomy. Prominent main pancreatic duct also noted. This was also seen previously. -acute hep panel neg Hx of constipation/fecal impaction CVA wit residual left sided deficits HTN Hypothyroidism PLAN - Continue Ceftriaxone #5/5 for UTI - 05/04/18 S/P Cefepime and Vancomycin - Monitor CBC and Temps - Monitor BMs -GI f/u re elevated LFTs and bliary duct dilation We will continue to follow the patient during this hospitalization. Subjective Allergies: Coded Allergies: NO KNOWN ALLERGIES (Unverified Allergy, Unknown, 04/30/15) Subjective afebrile no leukocytosis at rA LFts normal now Objective Vital Signs Last 24 Hour Vital Signs Date Time Temp Pulse Resp B/P (MAP) Pulse Ox O2 Delivery O2 Flow Rate FiO2 05/08/18 08:43 157/88 05/08/18 08:00 98.2 67 18 157/88 (111) 96 05/08/18 08:00 Room Air 05/08/18 06:54 65 14 Room Air 21 05/08/18 04:00 98.1 73 18 161/80 (107) 96 05/08/18 00:00 98.2 69 16 142/75 (97) 97 05/07/18 21:00 Room Air 05/07/18 20:41 72 18 Room Air 21 05/07/18 20:00 96.5 82 18 163/88 (113) 93 05/07/18 16:00 99.9 69 16 136/69 (91) 97 05/07/18 12:00 98.1 65 16 147/73 (97) 96 Height (Feet): 5 Height (Inches): 4.00 Weight (Pounds): 110 Objective Gen: NAD, Thin HEENT: NCAT, MMM, EOMI, PERRL, No Oral lesion, no scleral icterus NECK: full range of motion, supple, no meningismus, No LAD, No JVD LUNGS: CTAB, No W/C, No Accessory muscle use CARDS: RRR, S1, S2, No M/R/G, ABD: Soft, NT, ND, No R/G, + BS, No HSM, No Masses : Deferred Ext: C/C/E, Pulses 2+ B/L (DP, Rad): NEURO: A/O x 3, Decreased strength left side PSYCH: Mood/affect normal SKIN: Warm/dry, No rashes Microbiology Date/Time Source Procedure Growth Status 05/06/18 13:42 Blood Blood Culture - Preliminary NO GROWTH AFTER 24 HOURS Resulted 05/06/18 13:35 Blood Blood Culture - Preliminary NO GROWTH AFTER 24 HOURS Resulted Laboratory Tests Test 05/08/18 05:49 White Blood Count 6.6 K/UL (4.8-10.8) Red Blood Count 3.58 M/UL (4.20-5.40) L Hemoglobin 10.4 G/DL (12.0-16.0) L Hematocrit 33.4 % (37.0-47.0) L Mean Corpuscular Volume 93 FL (80-99) Mean Corpuscular Hemoglobin 29.2 PG (27.0-31.0) Mean Corpuscular Hemoglobin Concent 31.3 G/DL (32.0-36.0) L Red Cell Distribution Width 12.0 % (11.6-14.8) Platelet Count 286 K/UL (150-450) Mean Platelet Volume 6.2 FL (6.5-10.1) L Neutrophils (%) (Auto) 62.0 % (45.0-75.0) Lymphocytes (%) (Auto) 27.5 % (20.0-45.0) Monocytes (%) (Auto) 7.7 % (1.0-10.0) Eosinophils (%) (Auto) 2.2 % (0.0-3.0) Basophils (%) (Auto) 0.6 % (0.0-2.0) Sodium Level 141 MMOL/L (136-145) Potassium Level 4.1 MMOL/L (3.5-5.1) Chloride Level 106 MMOL/L (98-107) Carbon Dioxide Level 26 MMOL/L (21-32) Anion Gap 9 mmol/L (5-15) Blood Urea Nitrogen 13 mg/dL (7-18) Creatinine 0.7 MG/DL (0.55-1.30) Estimat Glomerular Filtration Rate mL/min (>60) Glucose Level 87 MG/DL (74-106) Calcium Level 9.5 MG/DL (8.5-10.1) Current Medications Medications (Trade) Dose Ordered Sig/Marilu Route PRN Reason Start Time Stop Time Status Last Admin Dose Admin Acetaminophen (Tylenol) 650 mg Q4H PRN ORAL T>100.5 05/04/18 15:44 06/02/18 15:43 Acetaminophen/ Hydrocodone Bitart ([place] 5/325) 1 tab Q6H PRN ORAL For Pain 05/04/18 15:45 05/11/18 15:44 Albuterol/ Ipratropium (Albuterol/ Ipratropium) 3 ml Q4H PRN HHN Shortness of Breath 05/04/18 15:44 05/08/18 15:43 Bisacodyl (Dulcolax) 10 mg DAILYPRN PRN RECTAL Constipation 05/06/18 09:15 06/05/18 09:14 05/07/18 21:03 Ceftriaxone Sodium 1 gm/ Dextrose 55 ml @ 110 mls/hr Q24H IVPB 05/05/18 10:00 05/11/18 09:59 05/08/18 09:19 Docusate Sodium (Colace) 100 mg TID ORAL 05/04/18 18:00 06/02/18 12:59 Heparin Sodium (Porcine) (Heparin 5000 units/ml) 5,000 units EVERY 12 HOURS SUBQ 05/04/18 21:00 06/02/18 20:59 Levothyroxine Sodium (Synthroid) 50 mcg DAILY@0630 ORAL 05/05/18 06:30 06/03/18 06:29 05/08/18 06:21 Lisinopril (Prinivil) 20 mg DAILY ORAL 05/07/18 09:00 06/06/18 08:59 05/08/18 08:43 Lorazepam (Ativan) 0.5 mg Q6H PRN ORAL For Anxiety 05/05/18 04:15 05/12/18 04:14 Mirtazapine (Remeron) 7.5 mg BEDTIME ORAL 05/05/18 21:00 06/04/18 20:59 05/05/18 20:42 Morphine Sulfate (Morphine Sulfate) 2 mg Q4H PRN IVP Moderate Pain (Pain Scale 4-6) 05/07/18 14:15 05/10/18 12:29 05/08/18 06:23 Ondansetron HCl (Zofran) 4 mg Q6H PRN IVP Nausea & Vomiting 05/04/18 18:30 06/02/18 12:29 Phenazopyridine HCl (Pyridium) 100 mg DAILYPRN PRN ORAL dysuria/pain on urination 05/04/18 15:45 06/03/18 15:44 Polyethylene Glycol (Miralax) 17 gm BEDTIME ORAL 05/04/18 21:00 06/02/18 20:59 Polyethylene Glycol (Miralax) 17 gm DAILYPRN PRN ORAL Constipation 05/04/18 15:46 06/03/18 15:45 Temazepam (Restoril) 15 mg HSPRN PRN ORAL Insomnia 05/04/18 21:00 05/10/18 20:59 05/07/18 21:03 Tammi Alcantara M.D. May 08, 2018 11:25
[2018-05-08 12:00] VITALS: BP 138/75
--- NOTE | 2018-05-08 12:30 | GI Progress Note ---
Assessment/Plan Problems: (1) Constipation ICD Codes: K59.00 - Constipation, unspecified SNOMED: 43521596 (2) Anemia ICD Codes: D64.9 - Anemia, unspecified SNOMED: 300445103 (3) Fecal impaction ICD Codes: K56.41 - Fecal impaction SNOMED: 99096677 (4) Abdominal pain ICD Codes: R10.9 - Unspecified abdominal pain SNOMED: 83259113 (5) Severe malnutrition ICD Codes: E43 - Unspecified severe protein-calorie malnutrition SNOMED: 64711986 Status: stable, unchanged Status Narrative Discussed with Dr. Albert Assessment/Plan Transaminitis now resolved Recent history of endoscopic colonoscopy was last year, noted with unremarkable findings Anemia workup reviewed from prior admission Abdominal ultrasound showed common bile duct dilation of 13 mm MRCP ordered advance to regular diet Begin the patient on a bowel regimen given history of severe constipation OB stool to rule out GI bleed PPI Follow-up chest x-ray antibiotics fu labs, trend LFTs The patient was seen and examined at bedside and all new and available data was reviewed in the patients chart. I agree with the above findings, impression and plan. (Patient seen earlier today. Signature stamp does not reflect patient encounter time.). - Luiz Albert MD Subjective Subjective denies abdominal pain Tolerating diet Refusing care Objective Last 24 Hour Vital Signs Date Time Temp Pulse Resp B/P (MAP) Pulse Ox O2 Delivery O2 Flow Rate FiO2 05/08/18 12:00 98.4 65 17 138/75 (96) 96 05/08/18 08:43 157/88 05/08/18 08:00 98.2 67 18 157/88 (111) 96 05/08/18 08:00 Room Air 05/08/18 06:54 65 14 Room Air 21 05/08/18 04:00 98.1 73 18 161/80 (107) 96 05/08/18 00:00 98.2 69 16 142/75 (97) 97 05/07/18 21:00 Room Air 05/07/18 20:41 72 18 Room Air 21 05/07/18 20:00 96.5 82 18 163/88 (113) 93 05/07/18 16:00 99.9 69 16 136/69 (91) 97 Intake and Output 05/07/18 05/08/18 19:00 07:00 Intake Total 474 ml Balance 474 ml Intake Oral 474 ml # Voids 2 Laboratory Tests Test 05/08/18 05:49 White Blood Count 6.6 K/UL (4.8-10.8) Red Blood Count 3.58 M/UL (4.20-5.40) L Hemoglobin 10.4 G/DL (12.0-16.0) L Hematocrit 33.4 % (37.0-47.0) L Mean Corpuscular Volume 93 FL (80-99) Mean Corpuscular Hemoglobin 29.2 PG (27.0-31.0) Mean Corpuscular Hemoglobin Concent 31.3 G/DL (32.0-36.0) L Red Cell Distribution Width 12.0 % (11.6-14.8) Platelet Count 286 K/UL (150-450) Mean Platelet Volume 6.2 FL (6.5-10.1) L Neutrophils (%) (Auto) 62.0 % (45.0-75.0) Lymphocytes (%) (Auto) 27.5 % (20.0-45.0) Monocytes (%) (Auto) 7.7 % (1.0-10.0) Eosinophils (%) (Auto) 2.2 % (0.0-3.0) Basophils (%) (Auto) 0.6 % (0.0-2.0) Sodium Level 141 MMOL/L (136-145) Potassium Level 4.1 MMOL/L (3.5-5.1) Chloride Level 106 MMOL/L (98-107) Carbon Dioxide Level 26 MMOL/L (21-32) Anion Gap 9 mmol/L (5-15) Blood Urea Nitrogen 13 mg/dL (7-18) Creatinine 0.7 MG/DL (0.55-1.30) Estimat Glomerular Filtration Rate mL/min (>60) Glucose Level 87 MG/DL (74-106) Calcium Level 9.5 MG/DL (8.5-10.1) Height (Feet): 5 Height (Inches): 4.00 Weight (Pounds): 110 General Appearance: WD/WN, no apparent distress, alert, thin Cardiovascular: normal rate Respiratory/Chest: normal breath sounds, no respiratory distress Abdominal Exam: normal bowel sounds, non tender, soft Extremities: non-tender Santiago,Elena-Shree [employer] May 08, 2018 12:30
--- NOTE | 2018-05-08 14:00 | General Progress Note ---
Assessment/Plan Problem List: (1) Cerebrovascular accident with involvement of left side of body ICD Codes: I63.9 - Cerebral infarction, unspecified SNOMED: 458722329 (2) Urinary tract infection ICD Codes: N39.0 - Urinary tract infection, site not specified SNOMED: 73013059 (3) Osteoarthritis of right knee ICD Codes: M17.9 - Osteoarthritis of knee, unspecified SNOMED: 357450009 (4) Osteoarthritis of left knee ICD Codes: M17.9 - Osteoarthritis of knee, unspecified SNOMED: 550404089 (5) Sacral decubitus ulcer, stage III ICD Codes: L89.153 - Pressure ulcer of sacral region, stage 3 SNOMED: 731352598, 585956972 (6) Anemia ICD Codes: D64.9 - Anemia, unspecified SNOMED: 876270958 (7) Severe malnutrition ICD Codes: E43 - Unspecified severe protein-calorie malnutrition SNOMED: 82366799 (8) Sepsis ICD Codes: A41.9 - Sepsis, unspecified organism SNOMED: 19480348 Status: stable, progressing Assessment/Plan pt diet abx dc if clear Subjective Constitutional: Reports: weakness Allergies: Coded Allergies: NO KNOWN ALLERGIES (Unverified Allergy, Unknown, 04/30/15) All Systems: reviewed and negative except above Subjective sl anxious in bed Objective Last 24 Hour Vital Signs Date Time Temp Pulse Resp B/P (MAP) Pulse Ox O2 Delivery O2 Flow Rate FiO2 05/08/18 12:00 98.4 65 17 138/75 (96) 96 05/08/18 08:43 157/88 05/08/18 08:00 98.2 67 18 157/88 (111) 96 05/08/18 08:00 Room Air 05/08/18 06:54 65 14 Room Air 21 05/08/18 04:00 98.1 73 18 161/80 (107) 96 05/08/18 00:00 98.2 69 16 142/75 (97) 97 05/07/18 21:00 Room Air 05/07/18 20:41 72 18 Room Air 21 05/07/18 20:00 96.5 82 18 163/88 (113) 93 05/07/18 16:00 99.9 69 16 136/69 (91) 97 Intake and Output 05/07/18 05/08/18 18:59 06:59 Intake Total 474 ml Balance 474 ml Intake Oral 474 ml # Voids 2 Laboratory Tests 05/08/18 05:49: White Blood Count 6.6, Red Blood Count 3.58L, Hemoglobin 10.4L, Hematocrit 33.4L , Mean Corpuscular Volume 93, Mean Corpuscular Hemoglobin 29.2, Mean Corpuscular Hemoglobin Concent 31.3L, Red Cell Distribution Width 12.0, Platelet Count 286, Mean Platelet Volume 6.2L, Neutrophils (%) (Auto) 62.0, Lymphocytes (%) (Auto) 27.5, Monocytes (%) (Auto) 7.7, Eosinophils (%) (Auto) 2.2, Basophils (%) (Auto) 0.6, Sodium Level 141, Potassium Level 4.1, Chloride Level 106, Carbon Dioxide Level 26, Anion Gap 9, Blood Urea Nitrogen 13, Creatinine 0.7, Estimat Glomerular Filtration Rate , Glucose Level 87, Calcium Level 9.5 Height (Feet): 5 Height (Inches): 4.00 Weight (Pounds): 110 General Appearance: lethargic EENT: normal ENT inspection Neck: normal alignment Cardiovascular: normal peripheral pulses, normal rate, regular rhythm Respiratory/Chest: chest wall non-tender, lungs clear, normal breath sounds Abdomen: normal bowel sounds, non tender, soft Extremities: normal inspection Edema: no edema noted Arm (L), no edema noted Arm (R), no edema noted Leg (L), no edema noted Leg (R), no edema noted Pedal (L), no edema noted Pedal (R), no edema noted Generalized Neurologic: responsive, motor weakness Skin: normal pigmentation, warm/dry Olegario Dunaway DO May 08, 2018 14:00
--- NOTE | 2018-05-08 14:54 | Cardiac Electrophysiology PN ---
Assessment/Plan Assessment/Plan 1. Weakness. Troponins are negative. No CP or SOB 2. Hypertension. Stable off antihypertensives. 3. CVA with left hemiplegia. 4. Hypothyroidism, on Synthroid. 5. Possible pneumonia, on antibiotic per Dr. Lawler. 6. Abd pain US negative DW RN OK to DC Subjective Subjective No events. No CP or SOB.DC to SNIF in progress Objective Last 24 Hour Vital Signs Date Time Temp Pulse Resp B/P (MAP) Pulse Ox O2 Delivery O2 Flow Rate FiO2 05/08/18 12:00 98.4 65 17 138/75 (96) 96 05/08/18 08:43 157/88 05/08/18 08:00 98.2 67 18 157/88 (111) 96 05/08/18 08:00 Room Air 05/08/18 06:54 65 14 Room Air 21 05/08/18 04:00 98.1 73 18 161/80 (107) 96 05/08/18 00:00 98.2 69 16 142/75 (97) 97 05/07/18 21:00 Room Air 05/07/18 20:41 72 18 Room Air 21 05/07/18 20:00 96.5 82 18 163/88 (113) 93 05/07/18 16:00 99.9 69 16 136/69 (91) 97 Intake and Output 05/07/18 05/08/18 19:00 07:00 Intake Total 474 ml Balance 474 ml Intake Oral 474 ml # Voids 2 Laboratory Tests Test 05/08/18 05:49 White Blood Count 6.6 K/UL (4.8-10.8) Red Blood Count 3.58 M/UL (4.20-5.40) L Hemoglobin 10.4 G/DL (12.0-16.0) L Hematocrit 33.4 % (37.0-47.0) L Mean Corpuscular Volume 93 FL (80-99) Mean Corpuscular Hemoglobin 29.2 PG (27.0-31.0) Mean Corpuscular Hemoglobin Concent 31.3 G/DL (32.0-36.0) L Red Cell Distribution Width 12.0 % (11.6-14.8) Platelet Count 286 K/UL (150-450) Mean Platelet Volume 6.2 FL (6.5-10.1) L Neutrophils (%) (Auto) 62.0 % (45.0-75.0) Lymphocytes (%) (Auto) 27.5 % (20.0-45.0) Monocytes (%) (Auto) 7.7 % (1.0-10.0) Eosinophils (%) (Auto) 2.2 % (0.0-3.0) Basophils (%) (Auto) 0.6 % (0.0-2.0) Sodium Level 141 MMOL/L (136-145) Potassium Level 4.1 MMOL/L (3.5-5.1) Chloride Level 106 MMOL/L (98-107) Carbon Dioxide Level 26 MMOL/L (21-32) Anion Gap 9 mmol/L (5-15) Blood Urea Nitrogen 13 mg/dL (7-18) Creatinine 0.7 MG/DL (0.55-1.30) Estimat Glomerular Filtration Rate mL/min (>60) Glucose Level 87 MG/DL (74-106) Calcium Level 9.5 MG/DL (8.5-10.1) Microbiology Date/Time Source Procedure Growth Status 05/06/18 13:42 Blood Blood Culture - Preliminary NO GROWTH AFTER 24 HOURS Resulted 05/06/18 13:35 Blood Blood Culture - Preliminary NO GROWTH AFTER 24 HOURS Resulted Objective HEAD AND NECK: No JVD. LUNGS: Clear. CARDIOVASCULAR: Regular S1 and S2 with no gallop. ABDOMEN: Soft. EXTREMITIES: No pitting edema. NEUROLOGIC: Left hemiplegia and upper extremity contractions. Sanket Tinsley MD May 08, 2018 14:54
[2018-05-08 16:00] VITALS: BP 135/65
--- NOTE | 2018-05-08 18:15 | Progress Note ---
DATE: 05/08/2018 SUBJECTIVE: This patient is a 72-year-old female patient with generalized weakness. This patient continues to have some confusion, disorganized thought process, and mood lability, worsened by stress of her medical illness. She has some confusion, some disorganized thought process, and mood lability worsened by stress of her medical illness. She had poor cognition, worsened by stress of her medical illness. That is why, her attending has requested daily psychiatric consultation. She has generalized weakness. She got some confusion, some disorganized thought process, and poor cognition, worsened by stress of her medical illness. She has increased depression, worsened by stress of her medical illness and failure to thrive. That is why, her attending has requested daily psychiatric consultation. MENTAL STATUS EXAMINATION: The patient is a 72-year-old female. Appearance is disheveled. Attitude, irritable and agitated. Affect, guarded and restricted. Intellect poor. Mood depressed and anxious. Motor activity, psychomotor agitation. Attention span is poor. Orientation x2. Speech is low volume and slurred. Thought process, disorganized and illogical. Thought content, auditory hallucinations and paranoia. Insight and judgment is poor. DIAGNOSIS: Major depressive disorder, mild, recurrent, without psychotic features. PLAN: Treat her with Remeron 7.5 mg at bedtime. Provided with 20 minutes of cognitive therapy to help her identify automatic negative thoughts and help her to convert those negative thoughts to more positive thoughts to reduce depression, anxiety, and suicidality. more adaptive behavioral plan. She has had altered mental status worsened by stress with her medical illness. I am going to continue this patient to improve her cognition close to her baseline. That has declined significantly below baseline secondary to stress from medical illness. Chart reviewed. Discussed with staff. Seen and assessed in the bedside. Ute Perla M.D. DR: GERBER JOB#: [id number] CC:
--- NOTE | 2018-05-08 21:46 | Pulmonology Progress Note ---
Assessment/Plan Problems: (1) Acute bronchiolitis (2) Severe malnutrition (3) Constipation (4) Thalamic pain syndrome (5) Cerebrovascular accident with involvement of left side of body Assessment/Plan less short of breath getting better all reviewed respiratory treatment check sputum titrate fio2 to sat of 92% GI evaluation dvt prophylaxis nutrition evaluation Subjective Allergies: Coded Allergies: NO KNOWN ALLERGIES (Unverified Allergy, Unknown, 04/30/15) Objective Last 24 Hour Vital Signs Date Time Temp Pulse Resp B/P (MAP) Pulse Ox O2 Delivery O2 Flow Rate FiO2 05/08/18 16:00 98.1 65 18 135/65 (88) 96 05/08/18 12:00 98.4 65 17 138/75 (96) 96 05/08/18 08:43 157/88 05/08/18 08:00 98.2 67 18 157/88 (111) 96 05/08/18 08:00 Room Air 05/08/18 06:54 65 14 Room Air 21 05/08/18 04:00 98.1 73 18 161/80 (107) 96 05/08/18 00:00 98.2 69 16 142/75 (97) 97 Intake and Output 05/07/18 05/08/18 19:00 07:00 Intake Total 474 ml Balance 474 ml Intake Oral 474 ml # Voids 2 Objective General Appearance: WD/WN HEENT: normocephalic, atraumatic Respiratory/Chest: chest wall non-tender, lungs clear Cardiovascular: normal peripheral pulses, normal rate Abdomen: normal bowel sounds, soft, non tender Extremities: no cyanosis Microbiology Date/Time Source Procedure Growth Status 05/06/18 13:42 Blood Blood Culture - Preliminary NO GROWTH AFTER 24 HOURS Resulted 05/06/18 13:35 Blood Blood Culture - Preliminary NO GROWTH AFTER 24 HOURS Resulted Laboratory Tests 05/08/18 05:49: White Blood Count 6.6, Red Blood Count 3.58L, Hemoglobin 10.4L, Hematocrit 33.4L , Mean Corpuscular Volume 93, Mean Corpuscular Hemoglobin 29.2, Mean Corpuscular Hemoglobin Concent 31.3L, Red Cell Distribution Width 12.0, Platelet Count 286, Mean Platelet Volume 6.2L, Neutrophils (%) (Auto) 62.0, Lymphocytes (%) (Auto) 27.5, Monocytes (%) (Auto) 7.7, Eosinophils (%) (Auto) 2.2, Basophils (%) (Auto) 0.6, Sodium Level 141, Potassium Level 4.1, Chloride Level 106, Carbon Dioxide Level 26, Anion Gap 9, Blood Urea Nitrogen 13, Creatinine 0.7, Estimat Glomerular Filtration Rate , Glucose Level 87, Calcium Level 9.5 Amira Lawler MD May 08, 2018 21:46
--- NOTE | 2018-05-09 12:38 | Discharge Summary ---
Discharge Summary Discharge Summary _ DATE OF ADMISSION: 05/03/2018 DATE OF DISCHARGE: 05/08/2018 DISCHARGED BY: Dr. Dunaway REASON FOR ADMISSION: 72 years old female with past medical history of hypertension, hyperlipidemia, history of CVA with left side hemiparesis, hypothyroidism, stage III pressure ulcer ,major depressive disorder , GERD, resident of prison facility , presented with nonproductive cough and generalized weakness. Upon evaluation vital signs were stable. Laboratory workup revealed no leukocytosis, hemoglobin 11.3 hematocrit 36.2, BUN 30, creatinine 1.1 . Lactic acid 1.0 Troponin negative Albumin 3.5 with BMI 18.9. Urinalysis revealed evidence of UTI. Chest x-ray revealed no acute cardiopulmonary pathology. Patient was admitted for further management CONSULTANTS: formal service waiter Dr. Zhong pulmonary Dr. Lawler ID specialist Dr. London GI specialist told the Dr. Albert psychiatrist Dr. Perla [facility] COURSE: Patient admitted to medical surgical floor. Non Destructive Testing Supervisor followed. Supplemental oxygen provided as needed to keep pulse oximetry above 92%. Pulmonary toilet via hand-held nebulizer initiated. DVT prophylaxis provided. ID specialist followed. Urinalysis was positive for UTI. Urine culture revealed mixed gram-positive organism. Patient had a history of fever at the [facility]. Patient was started on empiric antibiotic. No leukocytosis. Blood culture revealed 1 out of 4 Staphylococci capitis and repeated blood cultures were negative. Initial blood culture likely contamination. Continue IV antibiotic at the facility for total of 5 days. Commercial Intern followed. Blood pressure was managed with HERMES inhibitor , remained stable. Troponin negative. No chest pain or shortness of breath. Renal parameters and electrolytes were closely monitor. Electrolytes corrected as needed , and nephrotoxins were avoided. On 05/04 noted abrupt elevation in liver enzymes AST 153 from initial 27 and ALT up to 130 from initial 17. GI consult was requested. Abdominal ultrasound revealed dilated biliary ducts with similar findings noted on CT scan obtained 01/20/2018. Status post cholecystectomy. Prominent main pancreatic duct noted , which also was seen previously. Multiple bilateral renal stones of varying size. Hepatitis panel was negative. LFTs were closely monitored and returned to normal prior to discharge . Bowel regimen instituted. Patient subsequently had bowel movement. Patient had recent endoscopic colonoscopy with unremarkable findings. Anemia workup was reviewed from prior admission. Hemoglobin and hematocrit were closely monitored with goal to keep hemoglobin above 7, remained at baseline. Prior to discharge hemoglobin 10.4, and hematocrit 33.4. GI prophylaxis with PPI provided. Levothyroxine continued. Nutritional recommendation regarding protein supplements, implemented in plan of care. Pain management was addressed. Supportive care provided. Psychiatrist closely followed and diagnosed patient with major depressive disorder , mild , recurrent, without psychotic features. Psychiatric medication regimen was optimized as per psychiatrist. FINAL DIAGNOSES: Acute bronchiolitis Urinary tract infection Severe protein calorie malnutrition Constipation/fecal impaction History of CVA with left side hemiparesis Thalamic pain syndrome Anemia Hypertension Hypothyroidism Elevated LFT- resolved Major depressive disorder, mild, recurrent, without psychotic features DISCHARGE MEDICATIONS: See Medication Reconciliation list. DISCHARGE INSTRUCTIONS: Patient was discharged to the prison facility. Follow up with medical doctor at the facility. I have been assigned to dictate discharge summary for this account. I was not involved in the patient's management. Areli Mendoza NP May 09, 2018 12:38
== END 2018-05-08 19:10 | DRG 202 ==
LOC: EDBD 11:06 → EDUNIT# 11:06 → EMR 11:35 → 2E 11:50 → EDBEDREQ 12:25 → 2E 15:43 → 4E 05-04 14:45
DX: J21.9 Acute bronchiolitis, unspecified (principal); L89.153 Pressure ulcer of sacral region, stage 3; E43 Unspecified severe protein-calorie malnutrition; J18.9 Pneumonia, unspecified organism; N39.0 Urinary tract infection, site not specified; R57.9 Shock, unspecified; I69.354 Hemiplegia and hemiparesis following cerebral infarction affecting left non-dominant side; Z68.1 Body mass index [BMI] 19.9 or less, adult; F33.0 Major depressive disorder, recurrent, mild; R62.7 Adult failure to thrive; R50.9 Fever, unspecified; D64.9 Anemia, unspecified; F32.9 Major depressive disorder, single episode, unspecified; K21.9 Gastro-esophageal reflux disease without esophagitis; E03.9 Hypothyroidism, unspecified; E78.5 Hyperlipidemia, unspecified; I10 Essential (primary) hypertension; Z79.82 Long term (current) use of aspirin; G89.0 Central pain syndrome; E11.9 Type 2 diabetes mellitus without complications; M17.0 Bilateral primary osteoarthritis of knee; M24.50 Contracture, unspecified joint; E78.00 Pure hypercholesterolemia, unspecified; K56.41 Fecal impaction; E86.0 Dehydration; F41.1 Generalized anxiety disorder
CPT/HCPCS: 36415; 71045; 76700; 80048; 80053; 81003; 82550; 82553; 83605; 84484; 85025; 86705; 86709; 86803; 87040; 87081; 87086; 87181; 87340; 93005; 94664; 96365; 96375; 99285

== ENCOUNTER 2018-11-07 22:30 | Emergency (ER) | payer MEDICARE, MEDICAID ==
[~2018-11-07] VITALS: Ht 165.1 cm; Wt 52.2 kg
[~2018-11-07 22:30] MED LIST changes: +ALBUTEROL2.5 MG/3 M INH; +CELEXA20 MG ORAL; +CRANBERRY450 M4 PO; +IBUPROFEN600 MG ORAL; +TUBERSOL5 TUB UNIT ID; +TYLENOL325 MG ORAL; +VITAMIN C500 M1 ORAL; +VITAMIN D400 INTLU ORAL
--- NOTE | 2018-11-07 22:42 | NUR ---
ED Nurse Note: AGUSTO DOW FROM [facility] C/O LEFT KNEE PAIN. 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 DENIES LOC.
[2018-11-07 22:58] VITALS: BP 146/81
--- NOTE | 2018-11-07 22:59 | Emergency Room Report ---
History of Present Illness General Chief Complaint: Multiple Trauma/Fall Source: Patient Present Illness HPI This is a 72-year-old female with multiple medical problem. She lives in a fpc. She presents with chief complaint of left knee pain. senior care report, she fell 2 weeks ago. Complain left knee pain. Unknown x-rays. Pain is constant. 8 out of 10. Worse with movement. She has a history of stroke with left-sided weakness. Allergies: Coded Allergies: NO KNOWN ALLERGIES (Unverified Allergy, Unknown, 04/30/15) Patient History Past Medical History: see triage record, old chart reviewed Past Surgical History: other Pertinent Family History: none Social History: Denies: smoking Now: No Immunizations: other Reviewed Nursing Documentation: PMH: Agreed; PSxH: Agreed Nursing Documentation-PMH Past Medical History: No History, Except For Hx Cardiac Problems: Yes Hx Hypertension: Yes Hx Diabetes: No Hx Cancer: No Hx Gastrointestinal Problems: No Hx Neurological Problems: Yes Hx Cerebrovascular Accident: Yes Hx Paralysis: Yes - Left Side Hx Headaches: Yes Review of Systems Eye: Denies: eye pain, blurred vision ENT: Denies: ear pain, nose congestion, throat swelling Respiratory: Denies: cough, shortness of breath Cardiovascular: Denies: chest pain, palpitations Gastrointestinal: Denies: abdominal pain, diarrhea, nausea, vomiting Musculoskeletal: Reports: joint pain; Denies: back pain Skin: Denies: rash Neurological: Denies: headache, numbness Endocrine: Denies: increased thirst, increased urine Hematologic/Lymphatic: Denies: easy bruising All Other Systems: negative except mentioned in HPI Physical Exam Vital Signs Date Time Temp Pulse Resp B/P (MAP) Pulse Ox O2 Delivery O2 Flow Rate FiO2 11/07/18 22:36 98.1 63 14 146/81 (102) 96 Room Air Vitals unremarkable Sp02 EP Interpretation: reviewed, normal General Appearance: well appearing, no apparent distress, alert Head: normocephalic, atraumatic Eyes: bilateral eye PERRL, bilateral eye EOMI ENT: hearing grossly normal, normal pharynx Neck: full range of motion, supple, no meningismus Respiratory: chest non-tender, lungs clear, normal breath sounds Cardiovascular #1: regular rate, rhythm, no murmur Gastrointestinal: normal bowel sounds, non tender, no mass, no organomegaly, no bruit, non-distended Musculoskeletal: back normal, other - diffuse tenderness to the left knee. No redness. No fever. Neurologic: other - left hemiplegia Psychiatric: mood/affect normal Medical Decision Making Diagnostic Impression: Primary Impression: Osteoarthritis of left knee Qualified Codes: M17.12 - Unilateral primary osteoarthritis, left knee ER Course Patient with left knee pain. No trauma. No evidence of septic joint. No infection. Will discharge back to fpc. Other X-Ray Diagnostic Results Other X-Ray Diagnostic Results : X-Ray ordered: Knee x-rays, left # of Views/Limited Vs Complete: 3 View Indication: Pain EP Interpretation: Yes Interpretation: no dislocation, no soft tissue swelling, no fractures, other - Osteoporosis, DJD Impression: Other - OA Electronically Signed by: Joe Santiago MD Last Vital Signs Date Time Temp Pulse Resp B/P (MAP) Pulse Ox O2 Delivery O2 Flow Rate FiO2 11/07/18 22:36 98.1 63 14 146/81 (102) 96 Room Air Status: unchanged Disposition: ER SNF Condition: Stable Additional Instructions: Follow-up with your doctor in 7 days. Return if worse. Joe Santiago MD Nov 07, 2018 22:59
[2018-11-07] MEDS: HYDROcodone/Acetamin 5/325 tab ORAL ONE ×2 (23:04→23:05)
[2018-11-07] MEDS ORDERED: AMLODIPINE BESYL5 MG ORAL (23:28)
[2018-11-07] MEDS ORDERED: RESTORIL15 MG ORAL (23:28)
[2018-11-07] MEDS ORDERED: AVAPRO150 MG ORAL (23:28)
[2018-11-07] MEDS ORDERED: LATANOPROST 0.7.5 ML OP (23:28)
[2018-11-07] MEDS ORDERED: NORCO 5-325 TA1 EACH ORAL (23:28)
[2018-11-07] MEDS ORDERED: OMEPRAZOLE20 M3 ORAL (23:28)
[2018-11-07] MEDS ORDERED: HYDROCHLOROTH12.5 M2 ORAL (23:28)
[2018-11-08] VITALS: BP 156/88
--- NOTE | 2018-11-08 00:42 | NUR ---
ED Nurse Note: Informed Bill at [facility] that patient is returning.
--- NOTE | 2018-11-08 00:59 | NUR ---
ED Nurse Note: Spoke with Yarely at [facility] to report BP of 171/74 - Yarely is OK with the patient returning.
[2018-11-08 01:00] VITALS: BP 146/81
--- NOTE | 2018-11-08 01:00 | NUR ---
ER DISCHARGE NOTE: Patient is cleared to be discharged per ERMD, pt is aox4, on room air, with stable vital signs. pt was given dc and prescription instructions, pt was able to verbalize understanding, pt id band and iv site removed without complications. report given to [facility] personnel. patient left with ems personnel with all belongings.
--- NOTE | 2018-11-08 14:03 | Diagnostic Imaging Report ---
INDICATION: Knee Pain COMPARISON: None 3 views of the left knee were obtained. FINDINGS: Severe degree of osteopenia limits evaluation. There is irregularity of the lateral femoral condyle which may be fractured but this may be old. There is narrowing of the joint space. There is no definite joint effusion. IMPRESSION: Distal femoral fracture which is probably old. Limited evaluation due to severe osteopenia
== END 2018-11-08 01:00 ==
LOC: EDUNIT# 22:30 → EDBD 22:30 → EMR 22:54
DX: M17.12 Unilateral primary osteoarthritis, left knee (principal); G81.94 Hemiplegia, unspecified affecting left nondominant side; I10 Essential (primary) hypertension; M81.0 Age-related osteoporosis without current pathological fracture
CPT/HCPCS: 73502; 99283

== ENCOUNTER 2019-07-14 16:15 | Emergency (ER) | payer MEDICARE, MEDICAID ==
[~2019-07-14] VITALS: Ht 152.4 cm; Wt 45.4 kg
[~2019-07-14 16:15] MED LIST changes: +AMLODIPINE BESYL5 MG ORAL; +AVAPRO150 MG ORAL; +HYDROCHLOROTH12.5 M2 ORAL; +LATANOPROST 0.7.5 ML OP; +OMEPRAZOLE20 M3 ORAL
[2019-07-14 16:25] VITALS: BP 162/50
[2019-07-14] MEDS ORDERED: Morphine Sulfate 4mg/ml Inj (IV USE ONLY) IVP ONE (16:30)
--- NOTE | 2019-07-14 16:30 | Emergency Room Report ---
History of Present Illness General Chief Complaint: Pain Source: Patient, EMS Present Illness HPI The patient presents with severe left knee pain. Apparently she was given [place] at the senior care facility. The pain is not controlled at this time. According to staff the knee feels warm and there is some swelling. The patient has had a stroke and has difficulty communicating. She repeats over and over that the pain is severe at this time. She does not answer most of the questions. When asked if she is having chest pain, nausea, vomiting, diarrhea, dysuria the patient denies all of these. Patient was seen October 2018 with apparent similar left knee pain. No uric acid was performed at that time. X-ray revealed osteoarthritis. COVID-19 risk:Contact w/high r: No COVID-19 risk:Travel to affect: No Has patient experienced dow: No Allergies: Coded Allergies: NO KNOWN ALLERGIES (Unverified Allergy, Unknown, 04/30/15) Patient History Limited by: medical condition Past Medical History: see triage record, old chart reviewed Social History: Denies: alcohol use, drug use Social History Narrative SNF Reviewed Nursing Documentation: PMH: Agreed; PSxH: Agreed Nursing Documentation-PMH Past Medical History: No History, Except For Hx Cardiac Problems: Yes Hx Hypertension: Yes Hx Diabetes: No Hx Cancer: No Hx Gastrointestinal Problems: No Hx Neurological Problems: Yes Hx Cerebrovascular Accident: Yes Hx Paralysis: Yes - Left Side Hx Headaches: Yes Review of Systems All Other Systems: limited Physical Exam Vital Signs Date Time Temp Pulse Resp B/P (MAP) Pulse Ox O2 Delivery O2 Flow Rate FiO2 07/14/19 16:17 98.8 90 20 162/50 (87) 99 Room Air Sp02 EP Interpretation: reviewed, normal General Appearance: alert, mild distress, Chronically Ill Head: normocephalic Eyes: bilateral eye normal inspection, bilateral eye PERRL ENT: moist mucus membranes Neck: supple Respiratory: lungs clear, normal breath sounds Cardiovascular #1: regular rate, rhythm Cardiovascular #2: 2+ radial (R), 2+ dorsalis pedis (L) Gastrointestinal: normal inspection, normal bowel sounds, non tender, no mass, non-distended Musculoskeletal: decreased range of motion, other - Contractures left upper and lower extremities Neurologic: alert, sensory intact, motor weakness - Left hemiparesis Psychiatric: anxious Skin: Decubitus/Ulcer - Stage II sacral and buttocks, warm/dry Medical Decision Making Diagnostic Impression: Primary Impression: Osteoarthritis of left knee Qualified Codes: M17.12 - Unilateral primary osteoarthritis, left knee Additional Impressions: UTI (urinary tract infection) Qualified Codes: N39.0 - Urinary tract infection, site not specified Sacral decubitus ulcer, stage III ER Course Patient presents with severe left knee pain with no history of trauma allegedly. Differential includes fracture, osteoarthritis, gout, pseudogout, septic knee amongst others. Based on her exam septic knee is less likely however labs need to be obtained. Patient evaluated with EKG, knee film and labs. Patient treated with IV hydration and also Zofran, morphine and colchicine. EKG no injury. Left knee with osteoarthritis. Normal white count. Normal sed rate. Normal C-reactive protein. Uric acid normal. Urinalysis with pyuria. Rocephin administered for UTI. Patient dramatically improved. Discussed admission to the hospital. She refuses. In reevaluation the patient appears clinically stable and improved to be observed as an outpatient. Discussed with her primary doctor. Patient stable for outpatient observation and treatment. Laboratory Tests Test 07/14/19 16:45 07/14/19 17:23 White Blood Count 6.6 K/UL (4.8-10.8) Red Blood Count 4.44 M/UL (4.20-5.40) Hemoglobin 12.5 G/DL (12.0-16.0) Hematocrit 40.7 % (37.0-47.0) Mean Corpuscular Volume 92 FL (80-99) Mean Corpuscular Hemoglobin 28.1 PG (27.0-31.0) Mean Corpuscular Hemoglobin Concent 30.6 G/DL (32.0-36.0) L Red Cell Distribution Width 13.8 % (11.6-14.8) Platelet Count 290 K/UL (150-450) Mean Platelet Volume 7.1 FL (6.5-10.1) Neutrophils (%) (Auto) 44.0 % (45.0-75.0) L Lymphocytes (%) (Auto) 47.2 % (20.0-45.0) H Monocytes (%) (Auto) 6.9 % (1.0-10.0) Eosinophils (%) (Auto) 0.9 % (0.0-3.0) Basophils (%) (Auto) 1.0 % (0.0-2.0) Erythrocyte Sedimentation Rate 28 MM/HR (0-30) Prothrombin Time 10.7 SEC (9.30-11.50) Prothrombin Time INR 1.0 (0.9-1.1) Activated Partial Thromboplast Time 24 SEC (23-33) Sodium Level 146 MMOL/L (136-145) H Potassium Level 5.5 MMOL/L (3.5-5.1) H Chloride Level 108 MMOL/L (98-107) H Carbon Dioxide Level 28 MMOL/L (21-32) Anion Gap 10 mmol/L (5-15) Blood Urea Nitrogen 32 mg/dL (7-18) H Creatinine 1.1 MG/DL (0.55-1.30) Estimated Glomerular Filtration Rate 58.8 mL/min (>60) Glucose Level 99 MG/DL (74-106) Uric Acid 5.8 MG/DL (2.6-7.2) Calcium Level 10.4 MG/DL (8.5-10.1) H Total Bilirubin 0.5 MG/DL (0.2-1.0) Aspartate Amino Transferase (AST) 19 U/L (15-37) Alanine Aminotransferase (ALT) 16 U/L (12-78) Alkaline Phosphatase 110 U/L (46-116) C-Reactive Protein, Quantitative < 0.4 mg/dL (0.00-0.90) Total Protein 8.2 G/DL (6.4-8.2) Albumin 4.2 G/DL (3.4-5.0) Globulin 4.0 g/dL Albumin/Globulin Ratio 1.0 (1.0-2.7) Urine Color Yellow Urine Appearance Slightly cloudy Urine pH 5 (4.5-8.0) Urine Specific [place] 1.015 (1.005-1.035) Urine Protein 2+ (NEGATIVE) H Urine Glucose (UA) Negative (NEGATIVE) Urine Ketones Negative (NEGATIVE) Urine Blood 2+ (NEGATIVE) H Urine Nitrite Negative (NEGATIVE) Urine Bilirubin Negative (NEGATIVE) Urine Urobilinogen 1 MG/DL (0.0-1.0) H Urine Leukocyte Esterase 3+ (NEGATIVE) H Urine RBC 2-4 /HPF (0 - 2) H Urine WBC 5-10 /HPF (0 - 2) H Urine Squamous Epithelial Cells Few /LPF (NONE/OCC) Urine Bacteria Few /HPF (NONE) EKG Diagnostic Results Rate: normal Rhythm: NSR ST Segments: no acute changes Rhythm Strip Diag. Results EP Interpretation: yes Rhythm: NSR, no PVC's, no ectopy Other X-Ray Diagnostic Results Other X-Ray Diagnostic Results : X-Ray ordered: L knee # of Views/Limited Vs Complete: 3 View Indication: Other EP Interpretation: Yes Interpretation: no dislocation, other - DJD and osteopenia Impression: Other Electronically Signed by: Electronically signed by Michel Jamison MD Last Vital Signs Date Time Temp Pulse Resp B/P (MAP) Pulse Ox O2 Delivery O2 Flow Rate FiO2 07/14/19 19:30 98.8 95 20 165/92 99 Room Air Status: improved Disposition: XFER SNF Condition: Improved Scripts Nitrofurantoin Monohyd/M-Cryst* (MACROBID 100 MG*) 100 Mg Capsule 100 MG ORAL EVERY 12 HOURS, #14 CAP Prov: Michel Jamison MD 07/14/19 Michel Jamison MD Jul 14, 2019 16:30
[2019-07-14 16:53] LABS: EOSINOPHILS % (AUTO) 0.9 % (0.0-3.0); HEMATOCRIT 40.7 % (37.0-47.0); HEMOGLOBIN 12.5 G/DL (12.0-16.0); LYMPHOCYTES % (AUTO) 47.2 % (20.0-45.0); MEAN CORPUSCULAR VOLUME 92 FL (80-99); MONOCYTES % (AUTO) 6.9 % (1.0-10.0); PLATELET COUNT 290 K/UL (150-450); RED BLOOD COUNT 4.44 M/UL (4.20-5.40); RED CELL DISTRIBUTION WIDTH 13.8 % (11.6-14.8); WHITE BLOOD COUNT 6.6 K/UL (4.8-10.8)
[2019-07-14 17:02] LABS: ANION GAP 10 mmol/L (5-15); BLOOD UREA NITROGEN 32 mg/dL (7-18); CALCIUM 10.4 MG/DL (8.5-10.1); CARBON DIOXIDE 28 MMOL/L (21-32); CHLORIDE 108 MMOL/L (98-107); CREATININE 1.1 MG/DL (0.55-1.30); POTASSIUM 5.5 MMOL/L (3.5-5.1); SODIUM 146 MMOL/L (136-145)
[2019-07-14 17:07] LABS: ALANINE AMINOTRANSFERASE 16 U/L (12-78); ALBUMIN 4.2 G/DL (3.4-5.0); ALKALINE PHOSPHATASE 110 U/L (46-116); ASPARTATE AMINO TRANSFERASE 19 U/L (15-37); BILIRUBIN,TOTAL 0.5 MG/DL (0.2-1.0)
--- NOTE | 2019-07-14 17:14 | Diagnostic Imaging Report ---
Left knee 3 view HISTORY: Pain Findings: Osteopenia of the bones. Moderate medial and lateral compartment joint space narrowing. Mild suprapatellar joint space narrowing. IMPRESSION: 1. Tricompartment osteoarthritis with joint space narrowing.
[2019-07-14 17:45] LABS: APPEARANCE,URINE SLIGHTLY CLOUDY; BILIRUBIN, URINE NEGATIVE (NEGATIVE); GLUCOSE, URINE (UA) NEGATIVE (NEGATIVE); KETONES,URINE NEGATIVE (NEGATIVE); LEUKOCYTE ESTERASE ,URINE 3+ (NEGATIVE); NITRITE,URINE NEGATIVE (NEGATIVE); PH,URINE 5 (4.5-8.0); PROTEIN,URINE 2+ (NEGATIVE); UROBILINOGEN,URINE 1 MG/DL (0.0-1.0)
[2019-07-14 17:46] LABS: COLOR,URINE YELLOW
[2019-07-14] MEDS ORDERED: cefTRIAXone 1 GM in NS 55 ML IVPB ONE (18:15)
[2019-07-14] MEDS ORDERED: NITROFURANTOIN100 M2 ORAL (18:47)
[2019-07-14 19:00] VITALS: BP 165/92
[2019-07-14 19:30] VITALS: BP 165/92
== END 2019-07-14 19:30 ==
LOC: EDBD 16:15 → EMR 16:47 → CANBEDREQ 19:31
DX: M17.12 Unilateral primary osteoarthritis, left knee (principal); N39.0 Urinary tract infection, site not specified; L89.153 Pressure ulcer of sacral region, stage 3; Z86.73 Personal history of transient ischemic attack (TIA), and cerebral infarction without residual deficits; I10 Essential (primary) hypertension; M85.862 Other specified disorders of bone density and structure, left lower leg
CPT/HCPCS: 36415; 73562; 80053; 81001; 84550; 85025; 85610; 85651; 85730; 86140; 93005; 96365; 96375; 99284; J0696; J2270; J2405